=== PATIENT | female | born 1980 | race African-American/Black ===

== ENCOUNTER 2022-12-14 07:45 | Emergency (ER) | payer OTHER ==
--- OUTSIDE RECORDS SUMMARY | 2022-12-14 08:12 | XMS REPORT | Continuity of Care Document ---
:1980 Author Organization [facility] t Address [address] [place] [address] [place] [id number] Care Team Providers Name Role Phone WADEALMA Jimenez Primary Care Physician Unavailable SANDEEP GALLOWAY Attending Clinician Unavailable NIA ALCANTAR Attending Clinician Unavailable Nia Alcantar MD Attending Clinician Galina Dominguez RN Attending Clinician Unavailable Almaz Monahan Attending Clinician Unavailable Peter Monique MD Attending Clinician Rylee Olson Attending Clinician RYLEE MCGEE Attending Clinician Unavailable Doctor Unassigned, Dolliver Attending Clinician Unavailable Laverne Sandeep BYRD Attending Clinician [phone] Ayeni_Ibitoye_Olubu Attending Clinician Unavailable KATLYN GARCIA Attending Clinician Unavailable KATLYN GARCIA Attending Clinician Unavailable Only, Ang Db Test Attending Clinician Unavailable Unknown, Attending Attending Clinician Unavailable KARAN HANEY Attending Clinician Unavailable José Miguel Brock Attending Clinician MALU PRITCHETT Attending Clinician Unavailable MALU PRITCHETT Attending Clinician Unavailable Only, Adc Test Attending Clinician Unavailable Harpreet Rust MD Attending Clinician HARPREET RUST Attending Clinician Unavailable MORGAN Attending Clinician Unavailable JEFRY NOEL Attending Clinician Unavailable Nivia Chan Attending Clinician Lab, Adc Fam Pob I Attending Clinician Unavailable NIVIA MARTINEZ Attending Clinician Unavailable Gloria Chang MD Attending Clinician GLORIA CHANG Attending Clinician Unavailable Gabe Esteves DO Attending Clinician Room, [facility] Uro Procedure Attending Clinician Unavailable Kira Lynch Attending Clinician GRAMMKIRA Attending Clinician Unavailable EbrahiKaran Yan Attending Clinician Pob1, [facility] Attending Clinician Unavailable NIA ALCANTAR Admitting Clinician Unavailable Ayeni_Ibitoye_Olubu Admitting Clinician Unavailable KATLYN GARCIA Admitting Clinician Unavailable RYLEE MCGEE Admitting Clinician Unavailable SANDEEP GALLOWAY Admitting Clinician Unavailable MORGAN Admitting Clinician Unavailable Payers Payer Name Policy Type Policy Number Effective Date Expiration Date S aleyda [facility] [id number] 2016 00:00:00 [facility] [id number] 2018 [facility] 00:00:00 (MEDICAID HMO) Problems Condition Condition Condition Status Onset Resolution Last Treating Co mments Source Name Details Category Date Date Treatment Clinician Date Other Other Disease Active Univers general general 7-28 [place] of counseling [place] and advice and advice 00 Me dical for for [place] contracept contracept sveta sveta management management Morbid Morbid Disease Active Univers obesity obesity 6-26 ity of 00:00: [address] Urinary Urinary Disease Active Univers incontinen incontinen 6-26 it y of ce ce 00:00: [address] Vaginal Vaginal Disease Active 2019- Univers discharge discharge 5-08 ity of 00:00: [address] Encounter Encounter Disease Active Uni vers for for 9 [place]y of contracept [place]pt [place] sveta sveta 00 Medical management management Br anch History of History of Disease Active U nivers depression depression 9- it y of 00:00: [place] 00 Medical Branch History of History of Disease Active U nivers anxiety anxiety 02-09 ity of 00:00: Medical Branch History of History of Disease Active U nivers tubal tubal 10-15 ity of ligation ligation 00:00: [place] 00 Medical Branch Heart Heart Problem Resolve 2022-02-05 Bertram darek murmur murmur d 22:09:23 l (finding) (finding) Herm marylu Resolved Problem 02/05/2022 [facility] Amnesia Amnesia Problem Active 2022-02-05 Me moria (finding) (finding) 22:09:23 l Active Manuel Problem 02/05/2022 [facility] Migraine Migraine Problem Active 2022-02-05 Memoria (disorder) (disorder) 22:09:23 l Active [place] Problem 02/05/2022 [facility] Beriberi Beriberi Problem Active 2022-02-05 Memoria (disorder) (disorder) 22:09:23 l Active Manuel Problem 02/05/2022 [facility] G43.909 - G43.909 - Diagnosis Active 2021-10-16 Memoria MIGRAINE, MIGRAINE, 07:08:00 l UNSP, NOT UNSP, NOT Herm marylu INTRACTABL INTRACTABL Active [facility] Allergies, Adverse Reactions, Alerts Allergy Allergy Status Severity Reaction(s) Onset Inactive Treating Comm ents Source Name Type Date Date Clinician HYDROCOD DRUG Active Hives Univers ONE-ACET 6-18 ity of AMINOPHE 00:00: [place] 00 Medical Branch Hydrocod Propensi Active Hives Univer s one-Acet ty to 618 ity of aminophe adverse 00:00: [place] n reaction 00 Medical s to Branch drug MORPHINE DRUG Active Rash Univers INGREDI 01-15 ity of 00:00: [place] 00 Medical Branch Morphine Propensi Active Rash Univer s ty to 01-15 ity of adverse 00:00: [place] reaction 00 Medical s Branch morphine morphine Active Memori a l Manuel [place] Active Memoria l [place] Social History Social Habit Start Date Stop Date Quantity Comments Source Gender identity [facility] Sexual orientation Univer sity of [facility] Alcohol intake 2022-11-09 2022-11-09 Current University of 00:00:00 00:00:00 non-drinker of [facility] alcohol Branch (finding) Exposure to 2022-09-13 2022-09-23 Not sure University SARS-CoV-2 (event) 00:00:00 15:51:00 [facility] History of Social 2022-07-08 2022-07-08 Univers ity of function 00:00:00 00:00:00 [facility] Tobacco use and 2021-12-10 2021-12-10 Smokeless Universit y of exposure 00:00:00 00:00:[address] tobacco non-[address] [facility] Social History 2021-09-21 2021-09-21 [facility] 14:24:55 14:24:55 Sex Assigned At [birth year] Universit y of 00:00:00 00:00:00 [facility] Smoking Status Start Date Stop Date Source Never smoked tobacco [facility] Medications Ordered Filled Start Stop Current Ordering Indication Dosage Frequency Signature Comments Components Source Medication Medication Date Date Medication? Clinician (SIG) Name Name LORazepam 2022- No Oral, PRN, U nivers (ATIVAN) 12-07 Starting ity of tablet 15:59: 15:59 on [facility] 31 :31 12/07/22 at [place] [id number], Branch Until [facility] 12/07/22 at [facility], Routine, Intra-op LORazepam 2022- No Oral, PRN, U nivers (ATIVAN) 12-07 Starting ity of tablet 15:59: 15:59 on [facility] 31 :31 12/07/22 at [facility] 1059, Branch Until [facility] 12/07/22 at 105, Routine, Intra-op hyaluronate 2022- No [id number] 3mL Univers sodium, 11-02- 4105 ity of stabilized 20:00: 19:11 [place] (DUROLANE) 00 :00 Medical intra-artic Branch ular injection 3 mL hyaluronate 2022- No [id number] 3mL 3 mL, Univers sodium, 11-02- 4105 Intra-luis ity o f stabilized 20:00: 19:11 [place] (DUR[place] 00 :00 ONCE, 1 Medica l intra-artic dose, On Bran ch ular Tue injection 3 11/02/22 at mL 1500, Routine hyaluronate 2022-0 2022- No [id number] 3mL Univers sodium, 11-02 410 ity of stabilized 20:00: 19:11 [place] (DUROLANE) 00 :00 Medical intra-artic Branch ular injection 3 mL hyaluronate 0 2022- No [id number] 3mL 3 mL, Univers sodium, 11-02 410 Intra-luis ity o f stabilized 20:00: 19:11 [place] (DUROLANE[place] 00 :00 ONCE, 1 Medica l intra-artic dose, On Bran ch ular Tue injection 3 11/02/22 at mL 1500, Routine metroNIDAZO 2022-0 Yes [id number] 500mg Take 1 Univers LE 500 mg 5-15 tablet by ity o f tablet 00:00: mouth in [place] [address] the Medical morning Branch and 1 tablet in the evening. metroNIDAZO 2022-0 Yes [id number] 500mg Take 1 Univers LE 500 mg 5-15 tablet by ity o f tablet 00:00: mouth in [place] [address] the Medical morning Branch and 1 tablet in the evening. metroNIDAZO 2022-0 Yes [id number] 500mg Take 1 Univers LE 500 mg 5-15 tablet by ity o f tablet 00:00: mouth in [place] the Medical morning Branch and 1 tablet in the evening. metroNIDAZO 2022-0 Yes [id number] 500mg Take 1 Univers LE 500 mg 5-15 tablet by ity o f tablet 00:00: mouth in [place] [address] the Medical morning Branch and 1 tablet in the evening. metroNIDAZO 3-0 Yes [id number] 500mg Take 1 Univers LE 500 mg 5-15 tablet by ity o f tablet 00:00: mouth in [place] [address] the Medical morning Branch and 1 tablet in the evening. metroNIDAZO 3-0 Yes [id number] 500mg Take 1 Univers LE 500 mg 5-15 tablet by ity o f tablet 00:00: mouth in [place] [address] the Medical morning Branch and 1 tablet in the evening. metroNIDAZO 2023-0 Yes [id number] 500mg Take 1 Univers LE 500 mg 5-15 tablet by ity o f tablet 00:00: mouth in [place] 00 the Medical morning Branch and 1 tablet in the evening. metroNIDAZO 3-0 Yes [id number] 500mg Take 1 Univers LE 500 mg 5-15 tablet by ity o f tablet 00:00: mouth in [place] 00 the Medical morning Branch and 1 tablet in the evening. metroNIDAZO 2022-0 Yes [id number] 500mg Take 1 Univers LE 500 mg 5-15 tablet by ity o f tablet 00:00: mouth in [place] 00 the Medical morning Branch and 1 tablet in the evening. metroNIDAZO 2022-0 Yes [id number] 500mg Take 1 Univers LE 500 mg 5-15 tablet by ity o f tablet 00:00: mouth in [place] 00 the Medical morning Branch and 1 tablet in the evening. metroNIDAZO 2022-0 Yes [id number] 500mg Take 1 Univers LE 500 mg 5-15 tablet by ity o f tablet 00:00: mouth in [place] 00 the Medical morning Branch and 1 tablet in the evening. metroNIDAZO 2022-0 Yes [id number] 500mg Take 1 Univers LE 500 mg 5-15 tablet by ity o f tablet 00:00: mouth in [place] 00 the Medical morning Branch and 1 tablet in the evening. metroNIDAZO 2022-0 Yes [id number] 500mg Take 1 Univers LE 500 mg 5-15 tablet by ity o f tablet 00:00: mouth in [place] 00 the Medical morning Branch and 1 tablet in the evening. metroNIDAZO 3-0 Yes [id number] 500mg Take 1 Univers LE 500 mg 5-15 tablet by ity o f tablet 00:00: mouth in [place] 00 the Medical morning Branch and 1 tablet in the evening. metroNIDAZO 3-0 Yes [id number] 500mg Take 1 Univers LE 500 mg 5-15 tablet by ity o f tablet 00:00: mouth in [place] 00 the Medical morning Branch and 1 tablet in the evening. metroNIDAZO 3-0 Yes [id number] 500mg Take 1 Univers LE 500 mg 5-15 tablet by ity o f tablet 00:00: mouth in [place] 00 the Medical morning Branch and 1 tablet in the evening. metroNIDAZO 3-0 Yes [id number] 500mg Take 1 Univers LE 500 mg 5-15 tablet by ity o f tablet 00:00: mouth in [place] 00 the Medical morning Branch and 1 tablet in the evening. metroNIDAZO 2022-0 Yes [id number] 500mg Take 1 Univers LE 500 mg 5-15 tablet by ity o f tablet 00:00: mouth in [place] 00 the Medical morning Branch and 1 tablet in the evening. metroNIDAZO 2022-0 Yes [id number] 500mg Take 1 Univers LE 500 mg 5-15 tablet by ity o f tablet 00:00: mouth in [place] 00 the Medical morning Branch and 1 tablet in the evening. metroNIDAZO 0 Yes [id number] 500mg Take 1 Univers LE 500 mg 5-15 tablet by ity o f tablet 00:00: mouth in [place] 00 the Medical morning Branch and 1 tablet in the evening. LORazepam 2022- No [id number] 1mg 1 mg, U nivers (ATIVAN) 09-20 05-08 Oral, ity of tablet 1 mg 20:15: 20:06 ONCE, 1 [place] 00 :[place] dose, On Medical 09/20/22 Branch at 1515, Routine DICLOFENAC 2022-0 Yes [id number] TAKE 1 Univers 75 mg EC 5-08 [id number] TABLET BY ity o f tablet 00:00: MOUTH [place] 00 EVERY Medical MORNING Branch AND 1 TABLET BY MOUTH EVERY EVENING DICLOFENAC 2022-0 Yes [id number] TAKE 1 Univers 75 mg EC 5-08 [id number] TABLET BY ity o f tablet 00:00: MOUTH [place] 00 EVERY Medical MORNING Branch AND 1 TABLET BY MOUTH EVERY EVENING DICLOFENAC 2022-0 Yes [id number] TAKE 1 Univers 75 mg EC 5-08 08422 TABLET BY ity o f tablet 00:00: MOUTH [place] 00 EVERY Medical MORNING Branch AND 1 TABLET BY MOUTH EVERY EVENING DICLOFENAC 2022-0 Yes [id number] TAKE 1 Univers 75 mg EC 5-08 [id number] TABLET BY ity o f tablet 00:00: MOUTH [place] 00 EVERY Medical MORNING Branch AND 1 TABLET BY MOUTH EVERY EVENING DICLOFENAC 2022-0 Yes [id number] TAKE 1 Univers 75 mg EC 5-08 [id number] TABLET BY ity o f tablet 00:00: MOUTH [place] 00 EVERY Medical MORNING Branch AND 1 TABLET BY MOUTH EVERY EVENING DICLOFENAC 2023-0 Yes [id number] TAKE 1 Univers 75 mg EC 5-08 [id number] TABLET BY ity o f tablet 00:00: MOUTH [place] 00 EVERY Medical MORNING Branch AND 1 TABLET BY MOUTH EVERY EVENING DICLOFENAC 2022-0 Yes [id number] TAKE 1 Univers 75 mg EC 5-08 [id number] TABLET BY ity o f tablet 00:00: MOUTH [place] 00 EVERY Medical MORNING Branch AND 1 TABLET BY MOUTH EVERY EVENING DICLOFENAC 2022-0 Yes [id number] TAKE 1 Univers 75 mg EC 5-08 [id number] TABLET BY ity o f tablet 00:00: MOUTH [place] 00 EVERY Medical MORNING Branch AND 1 TABLET BY MOUTH EVERY EVENING DICLOFENAC 2022-0 Yes [id number] TAKE 1 Univers 75 mg EC 5-08 23545 TABLET BY ity o f tablet 00:00: MOUTH [place] 00 EVERY Medical MORNING Branch AND 1 TABLET BY MOUTH EVERY EVENING DICLOFENAC 2022-0 Yes [id number] TAKE 1 Univers 75 mg EC 5-08 [id number] TABLET BY ity o f tablet 00:00: MOUTH [place] 00 EVERY Medical MORNING Branch AND 1 TABLET BY MOUTH EVERY EVENING DICLOFENAC 2022-0 Yes [id number] TAKE 1 Univers 75 mg EC 5-08 53696 TABLET BY ity o f tablet 00:00: MOUTH [place] 00 EVERY Medical MORNING Branch AND 1 TABLET BY MOUTH EVERY EVENING DICLOFENAC 2022-0 Yes [id number] TAKE 1 Univers 75 mg EC 5-08 [id number] TABLET BY ity o f tablet 00:00: MOUTH [place] 00 EVERY Medical MORNING Branch AND 1 TABLET BY MOUTH EVERY EVENING DICLOFENAC 3-0 Yes [id number] TAKE 1 Univers 75 mg EC 5-08 40587 TABLET BY ity o f tablet 00:00: MOUTH [place] 00 EVERY Medical MORNING Branch AND 1 TABLET BY MOUTH EVERY EVENING DICLOFENAC 3-0 Yes [id number] TAKE 1 Univers 75 mg EC 5-08 [id number] TABLET BY ity o f tablet 00:00: MOUTH [place] 00 EVERY Medical MORNING Branch AND 1 TABLET BY MOUTH EVERY EVENING DICLOFENAC 3-0 Yes [id number] TAKE 1 Univers 75 mg EC 5-08 [id number] TABLET BY ity o f tablet 00:00: MOUTH [place] 00 EVERY Medical MORNING Branch AND 1 TABLET BY MOUTH EVERY EVENING DICLOFENAC 3-0 Yes [id number] TAKE 1 Univers 75 mg EC 5-08 [id number] TABLET BY ity o f tablet 00:00: MOUTH [place] 00 EVERY Medical MORNING Branch AND 1 TABLET BY MOUTH EVERY EVENING DICLOFENAC 3-0 Yes [id number] TAKE 1 Univers 75 mg EC 5-08 [id number] TABLET BY ity o f tablet 00:00: MOUTH [place] 00 EVERY Medical MORNING Branch AND 1 TABLET BY MOUTH EVERY EVENING DICLOFENAC 2022-0 Yes [id number] TAKE 1 Univers 75 mg EC 5-08 [id number] TABLET BY ity o f tablet 00:00: MOUTH [place] 00 EVERY Medical MORNING Branch AND 1 TABLET BY MOUTH EVERY EVENING DICLOFENAC 2022-0 Yes [id number] TAKE 1 Univers 75 mg EC 5-08 [id number] TABLET BY ity o f tablet 00:00: MOUTH [place] 00 EVERY Medical MORNING Branch AND 1 TABLET BY MOUTH EVERY EVENING DICLOFENAC 2022-0 Yes [id number] TAKE 1 Univers 75 mg EC 5-08 [id number] TABLET BY ity o f tablet 00:00: MOUTH [place] 00 EVERY Medical MORNING Branch AND 1 TABLET BY MOUTH EVERY EVENING DICLOFENAC 2022-0 Yes [id number] TAKE 1 Univers 75 mg EC 5-08 48812 TABLET BY ity o f tablet 00:00: MOUTH [place] 00 EVERY Medical MORNING Branch AND 1 TABLET BY MOUTH EVERY EVENING DICLOFENAC 2022-0 Yes [id number] TAKE 1 Univers 75 mg EC 5-08 13668 TABLET BY ity o f tablet 00:00: MOUTH [place] 00 EVERY Medical MORNING Branch AND 1 TABLET BY MOUTH EVERY EVENING DICLOFENAC 2022-0 Yes [id number] TAKE 1 Univers 75 mg EC 5-08 [id number] TABLET BY ity o f tablet 00:00: MOUTH [place] 00 EVERY Medical MORNING Branch AND 1 TABLET BY MOUTH EVERY EVENING DICLOFENAC 3-0 Yes [id number] TAKE 1 Univers 75 mg EC 5-08 [id number] TABLET BY ity o f tablet 00:00: MOUTH [place] 00 EVERY Medical MORNING Branch AND 1 TABLET BY MOUTH EVERY EVENING DICLOFENAC 3-0 Yes [id number] TAKE 1 Univers 75 mg EC 5-08 [id number] TABLET BY ity o f tablet 00:00: MOUTH [place] 00 EVERY Medical MORNING Branch AND 1 TABLET BY MOUTH EVERY EVENING DICLOFENAC 3-0 Yes [id number] TAKE 1 Univers 75 mg EC 5-08 [id number] TABLET BY ity o f tablet 00:00: MOUTH [place] 00 EVERY Medical MORNING Branch AND 1 TABLET BY MOUTH EVERY EVENING methocarbam 3-0 Yes [id number] 750mg Take 1 Univers oL 750 mg 4-11 tablet by ity o f tablet 00:00: mouth in [place] 00 the Medical morning Branch and 1 tablet in the evening. methocarbam 3-0 Yes [id number] 750mg Take 1 Univers oL 750 mg 4-11 tablet by ity o f tablet 00:00: mouth in [place] 00 the Medical morning Branch and 1 tablet in the evening. methocarbam 3-0 Yes [id number] 750mg Take 1 Univers oL 750 mg 4-11 tablet by ity o f tablet 00:00: mouth in [place] 00 the Medical morning Branch and 1 tablet in the evening. methocarbam 3-0 Yes [id number] 750mg Take 1 Univers oL 750 mg 4-11 tablet by ity o f tablet 00:00: mouth in [place] 00 the Medical morning Branch and 1 tablet in the evening. methocarbam 3-0 Yes [id number] 750mg Take 1 Univers oL 750 mg 4-11 tablet by ity o f tablet 00:00: mouth in [place] 00 the Medical morning Branch and 1 tablet in the evening. methocarbam 3-0 Yes [id number] 750mg Take 1 Univers oL 750 mg 4-11 tablet by ity o f tablet 00:00: mouth in [place] 00 the Medical morning Branch and 1 tablet in the evening. methocarbam 3-0 Yes [id number] 750mg Take 1 Univers oL 750 mg 4-11 tablet by ity o f tablet 00:00: mouth in [place] 00 the Medical morning Branch and 1 tablet in the evening. methocarbam 3-0 Yes [id number] 750mg Take 1 Univers oL 750 mg 4-11 tablet by ity o f tablet 00:00: mouth in [place] 00 the Medical morning Branch and 1 tablet in the evening. methocarbam 3-0 Yes [id number] 750mg Take 1 Univers oL 750 mg 4-11 tablet by ity o f tablet 00:00: mouth in [place] 00 the Medical morning Branch and 1 tablet in the evening. methocarbam 3-0 Yes [id number] 750mg Take 1 Univers oL 750 mg 4-11 tablet by ity o f tablet 00:00: mouth in [place] 00 the Medical morning Branch and 1 tablet in the evening. methocarbam 3-0 Yes [id number] 750mg Take 1 Univers oL 750 mg 4-11 tablet by ity o f tablet 00:00: mouth in [place] 00 the Medical morning Branch and 1 tablet in the evening. methocarbam 3-0 Yes [id number] 750mg Take 1 Univers oL 750 mg 4-11 tablet by ity o f tablet 00:00: mouth in [place] 00 the Medical morning Branch and 1 tablet in the evening. methocarbam 3-0 Yes [id number] 750mg Take 1 Univers oL 750 mg 4-11 tablet by ity o f tablet 00:00: mouth in [place] 00 the Medical morning Branch and 1 tablet in the evening. methocarbam 3-0 Yes [id number] 750mg Take 1 Univers oL 750 mg 4-11 tablet by ity o f tablet 00:00: mouth in [place] 00 the Medical morning Branch and 1 tablet in the evening. methocarbam 3-0 Yes [id number] 750mg Take 1 Univers oL 750 mg 4-11 tablet by ity o f tablet 00:00: mouth in [place] 00 the Medical morning Branch and 1 tablet in the evening. methocarbam 3-0 Yes [id number] 750mg Take 1 Univers oL 750 mg 4-11 tablet by ity o f tablet 00:00: mouth in [place] 00 the Medical morning Branch and 1 tablet in the evening. methocarbam 3-0 Yes [id number] 750mg Take 1 Univers oL 750 mg 4-11 tablet by ity o f tablet 00:00: mouth in [place] 00 the Medical morning Branch and 1 tablet in the evening. methocarbam 3-0 Yes [id number] 750mg Take 1 Univers oL 750 mg 4-11 tablet by ity o f tablet 00:00: mouth in [place] 00 the Medical morning Branch and 1 tablet in the evening. methocarbam 3-0 Yes [id number] 750mg Take 1 Univers oL 750 mg 4-11 tablet by ity o f tablet 00:00: mouth in [place] 00 the Medical morning Branch and 1 tablet in the evening. methocarbam 3-0 Yes [id number] 750mg Take 1 Univers oL 750 mg 4-11 tablet by ity o f tablet 00:00: mouth in [place] 00 the Medical morning Branch and 1 tablet in the evening. methocarbam 2023-0 Yes [id number] 750mg Take 1 Univers oL 750 mg 4-11 tablet by ity o f tablet 00:00: mouth in [place] 00 the Medical morning Branch and 1 tablet in the evening. methocarbam 3-0 Yes [id number] 750mg Take 1 Univers oL 750 mg 4-11 tablet by ity o f tablet 00:00: mouth in [place] 00 the Medical morning Branch and 1 tablet in the evening. methocarbam 3-0 Yes [id number] 750mg Take 1 Univers oL 750 mg 4-11 tablet by ity o f tablet 00:00: mouth in [place] 00 the Medical morning Branch and 1 tablet in the evening. methocarbam 3-0 Yes [id number] 750mg Take 1 Univers oL 750 mg 4-11 tablet by ity o f tablet 00:00: mouth in [place] 00 the Medical morning Branch and 1 tablet in the evening. methocarbam 3-0 Yes [id number] 750mg Take 1 Univers oL 750 mg 4-11 tablet by ity o f tablet 00:00: mouth in [place] 00 the Medical morning Branch and 1 tablet in the evening. methocarbam 3-0 Yes [id number] 750mg Take 1 Univers oL 750 mg 4-11 tablet by ity o f tablet 00:00: mouth in [place] 00 the Medical morning Branch and 1 tablet in the evening. methocarbam 3-0 Yes [id number] 750mg Take 1 Univers oL 750 mg 4-11 tablet by ity o f tablet 00:00: mouth in [place] 00 the Medical morning Branch and 1 tablet in the evening. methocarbam 3-0 Yes [id number] 750mg Take 1 Univers oL 750 mg 4-11 tablet by ity o f tablet 00:00: mouth in [place] 00 the Medical morning Branch and 1 tablet in the evening. methocarbam 3-0 Yes [id number] 750mg Take 1 Univers oL 750 mg 4-11 tablet by ity o f tablet 00:00: mouth in [place] 00 the Medical morning Branch and 1 tablet in the evening. methocarbam 3-0 Yes [id number] 750mg Take 1 Univers oL 750 mg 4-11 tablet by ity o f tablet 00:00: mouth in [place] 00 the Medical morning Branch and 1 tablet in the evening. methocarbam 3-0 Yes [id number] 750mg Take 1 Univers oL 750 mg 4-11 tablet by ity o f tablet 00:00: mouth in [place] 00 the Medical morning Branch and 1 tablet in the evening. methocarbam 3-0 Yes [id number] 750mg Take 1 Univers oL 750 mg 4-11 tablet by ity o f tablet 00:00: mouth in [place] 00 the Medical morning Branch and 1 tablet in the evening. DICLOFENAC 2022-0 Yes [id number] TAKE 1 Univers 75 mg EC 4- 45099 TABLET BY ity o f tablet 00:00: MOUTH [place] 00 EVERY Medical MORNING Branch AND 1 TABLET BY MOUTH EVERY EVENING DICLOFENAC 2022-0 Yes [id number] TAKE 1 Univers 75 mg EC 4-07 [id number] TABLET BY ity o f tablet 00:00: MOUTH [place] 00 EVERY Medical MORNING Branch AND 1 TABLET BY MOUTH EVERY EVENING DICLOFENAC 2022-0 Yes [id number] TAKE 1 Univers 75 mg EC 4- 58205 TABLET BY ity o f tablet 00:00: MOUTH [place] 00 EVERY Medical MORNING Branch AND 1 TABLET BY MOUTH EVERY EVENING DICLOFENAC 2022-0 Yes [id number] TAKE 1 Univers 75 mg EC 4- [id number] TABLET BY ity o f tablet 00:00: MOUTH [place] 00 EVERY Medical MORNING Branch AND 1 TABLET BY MOUTH EVERY EVENING DICLOFENAC 2022-0 Yes [id number] TAKE 1 Univers 75 mg EC 4- 27847 TABLET BY ity o f tablet 00:00: MOUTH [place] 00 EVERY Medical MORNING Branch AND 1 TABLET BY MOUTH EVERY EVENING DICLOFENAC 2022-0 Yes [id number] TAKE 1 Univers 75 mg EC 4-07 [id number] TABLET BY ity o f tablet 00:00: MOUTH [place] 00 EVERY Medical MORNING Branch AND 1 TABLET BY MOUTH EVERY EVENING DICLOFENAC 2022-0 202- No [id number] TAKE 1 Univers 75 mg EC 4-07 05-08 [id number] TABLET BY ity of tablet 00:00: 00:00 MOUTH [place] 00 :00 EVERY Medical MORNING Branch AND 1 TABLET BY MOUTH EVERY EVENING DICLOFENAC 2022-0 2022- No [id number] TAKE 1 Univers 75 mg EC 4-07 05-08 [id number] TABLET BY ity of tablet 00:00: 00:00 MOUTH [place] 00 :00 EVERY Medical MORNING Branch AND 1 TABLET BY MOUTH EVERY EVENING cefdinir 2022-0 2022- No 300mg 300 mg, Univ ers (OMNICEF) 08-01 Oral, ity of capsule 300 17:30: 16:57 ONCE, 1 [place] mg 00 :00 dose, On Medical Sun Branch 08/01/22 at 1230, ANDRES
Re ason for Anti-Infec tive: Documented Infection< br>Documen david Infection Site: Urine
D uration of Therapy: 7 days lidocaine 2022- No 1{patch 1 Patch, Univers (LIDODERM) 08-01 } Topical, ity of 5 % (700 17:15: 05:14 Administer [place] mg/patch) 00 :00 over 12 Medical patch 1 Hours, Branch Patch ONCE, 1 dose, On 08/01/22 at 1215, Routine ketorolac No 30mg 30 mg, Unive rs (TORADOL) 08-01 Intramuscu ity of injection 17:15: 17:01 [place], ONCE, [place] 30 mg 00 :00 1 dose, On Medical Sun Branch 08/01/22 at 1215, Routine methocarbam 2022- No [id number] 750mg Take 1 Univers oL 750 mg 08-01 tablet by ity of tablet 00:00: 04:59 mouth 4 [place] 00 :00 (four) Medical times Branch daily as needed for Other (muscle spasms) for up to 7 days. cefdinir 2022- No [id number] 300mg Take 1 U nivers 300 mg 08-01 capsule by ity of capsule 00:00: 04:59 mouth [place] 00 :00 every 12 Medical (twelve) Branch hours for 7 days. methocarbam 2022- No [id number] 750mg Take 1 [facility] oL 750 mg 08-01 tablet by ity of tablet 00:00: 04:59 mouth 4 [place] 00 :00 (four) Medical times Branch daily as needed for Other (muscle spasms) for up to 7 days. cefdinir 2022- No [id number] 300mg Take 1 [facility] nivers 300 mg 08-01 capsule by ity of capsule 00:00: 04:59 mouth [place] 00 :00 every 12 Medical (twelve) Branch hours for 7 days. DICLOFENAC Yes [id number] TAKE 1 [facility] 75 mg EC 3-03 TABLET BY ity o f tablet 00:00: MOUTH [place] 00 EVERY Medical MORNING Branch AND 1 TABLET BY MOUTH EVERY EVENING DICLOFENAC Yes [id number] TAKE 1 [facility] 75 mg EC 3-07 [id number] TABLET BY ity o f tablet 00:00: MOUTH [place] 00 EVERY Medical MORNING Branch AND 1 TABLET BY MOUTH EVERY EVENING DICLOFENAC 2022-0 Yes [id number] TAKE 1 [facility] 75 mg EC 3- 81053 TABLET BY ity o f tablet 00:00: MOUTH [place] 00 EVERY Medical MORNING Branch AND 1 TABLET BY MOUTH EVERY EVENING DICLOFENAC 2022-0 2023- No [id number] TAKE 1 [facility] 75 mg EC 3-11 16- 15558 TABLET BY ity of tablet 00:00: 00:00 MOUTH [place] 00 :00 EVERY Medical MORNING Branch AND 1 TABLET BY MOUTH EVERY EVENING DICLOFENAC 2022-0 Yes [id number] TAKE 1 [facility] 75 mg EC 2-03 [id number] TABLET BY ity o f tablet 00:00: MOUTH [place] 00 EVERY Medical MORNING Branch AND 1 TABLET BY MOUTH EVERY EVENING DICLOFENAC 2022-0 Yes [id number] TAKE 1 [facility] 75 mg EC 2-03 [id number] TABLET BY ity o f tablet 00:00: MOUTH [place] 00 EVERY Medical MORNING Branch AND 1 TABLET BY MOUTH EVERY EVENING DICLOFENAC 2022-0 Yes [id number] TAKE 1 [facility] 75 mg EC 2-03 [id number] TABLET BY ity o f tablet 00:00: MOUTH [place] 00 EVERY Medical MORNING Branch AND 1 TABLET BY MOUTH EVERY EVENING DICLOFENAC 2022-0 Yes [id number] TAKE 1 [facility] 75 mg EC 2-03 [id number] TABLET BY ity o f tablet 00:00: MOUTH [place] 00 EVERY Medical MORNING Branch AND 1 TABLET BY MOUTH EVERY EVENING DICLOFENAC 2022-0 Yes [id number] TAKE 1 [facility] 75 mg EC 2-03 [id number] TABLET BY ity o f tablet 00:00: MOUTH [place] 00 EVERY Medical MORNING Branch AND 1 TABLET BY MOUTH EVERY EVENING DICLOFENAC 2022-0 Yes [id number] TAKE 1 [facility] 75 mg EC 2-03 [id number] TABLET BY ity o f tablet 00:00: MOUTH [place] 00 EVERY Medical MORNING Branch AND 1 TABLET BY MOUTH EVERY EVENING DICLOFENAC 2022-0 Yes [id number] TAKE 1 [facility] 75 mg EC 2-03 [id number] TABLET BY ity o f tablet 00:00: MOUTH [place] 00 EVERY Medical MORNING Branch AND 1 TABLET BY MOUTH EVERY EVENING DICLOFENAC 3-0 Yes [id number] TAKE 1 [facility] 75 mg EC 2-03 [id number] TABLET BY ity o f tablet 00:00: MOUTH [place] 00 EVERY Medical MORNING Branch AND 1 TABLET BY MOUTH EVERY EVENING DICLOFENAC 0 Yes [id number] TAKE 1 [facility] 75 mg EC 2-03 [id number] TABLET BY ity o f tablet 00:00: MOUTH [place] 00 EVERY Medical MORNING Branch AND 1 TABLET BY MOUTH EVERY EVENING DICLOFENAC 0 2022- No [id number] TAKE 1 [facility] 75 mg EC 2-03 -07 [id number] TABLET BY ity of tablet 00:00: 00:00 MOUTH [place] 00 :00 EVERY Medical MORNING Branch AND 1 TABLET BY MOUTH EVERY EVENING DICLOFENAC 0 Yes [id number] TAKE 1 [facility] 75 mg EC 1-04 [id number] TABLET BY ity o f tablet 00:00: MOUTH [place] 00 EVERY Medical MORNING Branch AND 1 TABLET BY MOUTH EVERY EVENING DICLOFENAC 0 Yes [id number] TAKE 1 [facility] 75 mg EC 1-04 [id number] TABLET BY ity o f tablet 00:00: MOUTH [place] 00 EVERY Medical MORNING Branch AND 1 TABLET BY MOUTH EVERY EVENING DICLOFENAC 0 Yes [id number] TAKE 1 [facility] 75 mg EC 1-04 [id number] TABLET BY ity o f tablet 00:00: MOUTH [place] 00 EVERY Medical MORNING Branch AND 1 TABLET BY MOUTH EVERY EVENING DICLOFENAC 0 Yes [id number] TAKE 1 [facility] 75 mg EC 1-04 [id number] TABLET BY ity o f tablet 00:00: MOUTH [place] 00 EVERY Medical MORNING Branch AND 1 TABLET BY MOUTH EVERY EVENING DICLOFENAC 0 Yes [id number] TAKE 1 [facility] 75 mg EC 1-04 [id number] TABLET BY ity o f tablet 00:00: MOUTH [place] 00 EVERY Medical MORNING Branch AND 1 TABLET BY MOUTH EVERY EVENING DICLOFENAC 0 Yes [id number] TAKE 1 [facility] 75 mg EC 1-04 [id number] TABLET BY ity o f tablet 00:00: MOUTH [place] 00 EVERY Medical MORNING Branch AND 1 TABLET BY MOUTH EVERY EVENING DICLOFENAC 0 Yes [id number] TAKE 1 [facility] 75 mg EC 1-04 [id number] TABLET BY ity o f tablet 00:00: MOUTH [place] 00 EVERY Medical MORNING Branch AND 1 TABLET BY MOUTH EVERY EVENING DICLOFENAC 0 Yes [id number] TAKE 1 [facility] 75 mg EC 1-04 [id number] TABLET BY ity o f tablet 00:00: MOUTH [place] 00 EVERY Medical MORNING Branch AND 1 TABLET BY MOUTH EVERY EVENING DICLOFENAC 0 Yes [id number] TAKE 1 [facility] 75 mg EC 1-04 [id number] TABLET BY ity o f tablet 00:00: MOUTH [place] 00 EVERY Medical MORNING Branch AND 1 TABLET BY MOUTH EVERY EVENING DICLOFENAC Yes [id number] TAKE 1 [facility] 75 mg EC 05-19 [id number] TABLET BY ity o f tablet 00:00: MOUTH [place] 00 EVERY Medical MORNING Branch AND 1 TABLET BY MOUTH EVERY EVENING DICLOFENAC 2022- No [id number] TAKE 1 [facility] 75 mg EC 05-19 [id number] TABLET BY ity of tablet 00:00: 00:00 MOUTH [place] 00 :00 EVERY Medical MORNING Branch AND 1 TABLET BY MOUTH EVERY EVENING diclofenac 2021-05- No [id number] 75mg Take 1 [facility] 75 mg EC 06-22 [id number] tablet by ity of tablet 00:00: 05:59 mouth in [place] 00 :00 the Medical morning Branch and 1 tablet in the evening. Take with meals. Do all this for 30 days. diclofenac 2021-05- No [id number] 75mg Take 1 [facility] 75 mg EC 06-22 [id number] tablet by ity of tablet 00:00: 05:59 mouth in [place] 00 :00 the Medical morning Branch and 1 tablet in the evening. Take with meals. Do all this for 30 days. diclofenac 2021-05- No [id number] 75mg Take 1 [facility] 75 mg EC 06-22 [id number] tablet by ity of tablet 00:00: 05:59 mouth in [place] 00 :00 the Medical morning Branch and 1 tablet in the evening. Take with meals. Do all this for 30 days. diclofenac 2021-05- No [id number] 75mg Take 1 [facility] 75 mg EC 06-22 [id number] tablet by ity of tablet 00:00: 05:59 mouth in [place] 00 :00 the Medical morning Branch and 1 tablet in the evening. Take with meals. Do all this for 30 days. diclofenac 2021-05- No [id number] 75mg Take 1 [facility] 75 mg EC 06-22 [id number] tablet by ity of tablet 00:00: 00:00 mouth in [place] 00 :00 the Medical morning Branch and 1 tablet in the evening. Take with meals. Do all this for 30 days. MELOXICAM 2022-1 Yes [id number] 7.5mg TAKE 1 [facility] 7.5 mg 1-29 [id number] TABLET BY ity of tablet 00:00: MOUTH [place] DAILY Medical Branch MELOXICAM 2021-05 Yes [id number] 7.5mg TAKE 1 [facility] 7.5 mg 1-29 [id number] TABLET BY ity of tablet 00:00: [facility] DAILY Medical Branch MELOXICAM 2021-05 Yes [id number] 7.5mg TAKE 1 [facility] 7.5 mg 1-29 [id number] TABLET BY ity of tablet 00:00: MOUTH DAILY Medical Branch MELOXICAM 2021-05 Yes [id number] 7.5mg TAKE 1 [facility] 7.5 mg 1-29 [id number] TABLET BY ity of tablet 00:00: [facility] DAILY Medical Branch MELOXICAM 2021-05 Yes [id number] 7.5mg TAKE 1 [facility] 7.5 mg 1-29 [id number] TABLET BY ity of tablet 00:00: [facility] DAILY Medical Branch MELOXICAM 2021-05 Yes [id number] 7.5mg TAKE 1 [facility] 7.5 mg 1-29 [id number] TABLET BY ity of tablet 00:00: [facility] DAILY Medical Branch MELOXICAM 2021-05 Yes [id number] 7.5mg TAKE 1 [facility] 7.5 mg 1-29 [id number] TABLET BY ity of tablet 00:00: [facility] DAILY Medical Branch MELOXICAM 2021-05 Yes [id number] 7.5mg TAKE 1 [facility] 7.5 mg 1-29 [id number] TABLET BY ity of tablet 00:00: [facility] DAILY Medical Branch MELOXICAM 2021-05 Yes [id number] 7.5mg TAKE 1 [facility] 7.5 mg 1-29 [id number] TABLET BY ity of tablet 00:00: [facility] DAILY Medical Branch MELOXICAM 2021-05 Yes [id number] 7.5mg TAKE 1 [facility] 7.5 mg 1-29 [id number] TABLET BY ity of tablet 00:00: [facility] DAILY Medical Branch MELOXICAM 2021-05 Yes [id number] 7.5mg TAKE 1 [facility] 7.5 mg 1-29 [id number] TABLET BY ity of tablet 00:00: [facility] DAILY Medical Branch MELOXICAM 2021-05 Yes [id number] 7.5mg TAKE 1 [facility] 7.5 mg 1-29 [id number] TABLET BY ity of tablet 00:00: MOUTH DAILY Medical Branch MELOXICAM 2021-05 Yes [id number] 7.5mg TAKE 1 [facility] 7.5 mg 1-29 [id number] TABLET BY ity of tablet 00:00: MOUTH DAILY Medical Branch MELOXICAM 2021-05 Yes [id number] 7.5mg TAKE 1 [facility] 7.5 mg 1-29 [id number] TABLET BY ity of tablet 00:00: MOUTH DAILY Medical Branch MELOXICAM 2021-05 Yes [id number] 7.5mg TAKE 1 [facility] 7.5 mg 1-29 [id number] TABLET BY ity of tablet 00:00: MOUTH DAILY Medical Branch MELOXICAM 2021-05 Yes [id number] 7.5mg TAKE 1 [facility] 7.5 mg 1-29 [id number] TABLET BY ity of tablet 00:00: MOUTH DAILY Medical Branch MELOXICAM 2021-05 Yes [id number] 7.5mg TAKE 1 [facility] 7.5 mg 1-29 [id number] TABLET BY ity of tablet 00:00: MOUTH DAILY Medical Branch MELOXICAM 2021-05 Yes [id number] 7.5mg TAKE 1 [facility] 7.5 mg 1-29 [id number] TABLET BY ity of tablet 00:00: MOUTH DAILY Medical Branch MELOXICAM 2021-05 Yes [id number] 7.5mg TAKE 1 [facility] 7.5 mg 1-29 [id number] TABLET BY ity of tablet 00:00: MOUTH DAILY Medical Branch MELOXICAM 2021-05 Yes [id number] 7.5mg TAKE 1 [facility] 7.5 mg 1-29 [id number] TABLET BY ity of tablet 00:00: MOUTH DAILY Medical Branch MELOXICAM 2021-05 Yes [id number] 7.5mg TAKE 1 [facility] 7.5 mg 1-29 [id number] TABLET BY ity of tablet 00:00: MOUTH DAILY Medical Branch MELOXICAM 2021-05 Yes [id number] 7.5mg TAKE 1 [facility] 7.5 mg 1-29 [id number] TABLET BY ity of tablet 00:00: MOUTH DAILY Medical Branch MELOXICAM 2021-05 Yes [id number] 7.5mg TAKE 1 [facility] 7.5 mg 1-29 [id number] TABLET BY ity of tablet 00:00: MOUTH DAILY Medical Branch MELOXICAM 2021-05 Yes [id number] 7.5mg TAKE 1 [facility] 7.5 mg 1-29 [id number] TABLET BY ity of tablet 00:00: [facility] DAILY Medical Branch MELOXICAM 2021-05 Yes [id number] 7.5mg TAKE 1 [facility] 7.5 mg 1-29 [id number] TABLET BY ity of tablet 00:00: [facility] DAILY Medical Branch MELOXICAM 2021-05 Yes [id number] 7.5mg TAKE 1 [facility] 7.5 mg 1-29 [id number] TABLET BY ity of tablet 00:00: [facility] DAILY Medical Branch MELOXICAM 2021-05 Yes [id number] 7.5mg TAKE 1 [facility] 7.5 mg 1-29 [id number] TABLET BY ity of tablet 00:00: [facility] DAILY Medical Branch MELOXICAM 2021-05 Yes [id number] 7.5mg TAKE 1 [facility] 7.5 mg 1-29 [id number] TABLET BY ity of tablet 00:00: [facility] DAILY Medical Branch MELOXICAM 2021-05 Yes [id number] 7.5mg TAKE 1 [facility] 7.5 mg 1-29 [id number] TABLET BY ity of tablet 00:00: [facility] DAILY Medical Branch MELOXICAM 2021-05 Yes [id number] 7.5mg TAKE 1 [facility] 7.5 mg 1-29 [id number] TABLET BY ity of tablet 00:00: [facility] DAILY Medical Branch MELOXICAM 2021-05 Yes [id number] 7.5mg TAKE 1 [facility] 7.5 mg 1-29 [id number] TABLET BY ity of tablet 00:00: [facility] DAILY Medical Branch MELOXICAM 2021-05 Yes [id number] 7.5mg TAKE 1 [facility] 7.5 mg 1-29 [id number] TABLET BY ity of tablet 00:00: [facility] DAILY Medical Branch MELOXICAM 2021-05 Yes [id number] 7.5mg TAKE 1 [facility] 7.5 mg 1-29 [id number] TABLET BY ity of tablet 00:00: [facility] DAILY Medical Branch MELOXICAM 2021-05 Yes [id number] 7.5mg TAKE 1 [facility] 7.5 mg 1-29 [id number] TABLET BY ity of tablet 00:00: [facility] DAILY Medical Branch MELOXICAM 2021-05 Yes [id number] 7.5mg TAKE 1 [facility] 7.5 mg 1-29 [id number] TABLET BY ity of tablet 00:00: MOUTH DAILY Medical Branch MELOXICAM 2021-05 Yes [id number] 7.5mg TAKE 1 [facility] 7.5 mg 1-29 [id number] TABLET BY ity of tablet 00:00: MOUTH DAILY Medical Branch MELOXICAM 2021-05 Yes [id number] 7.5mg TAKE 1 [facility] 7.5 mg 1-29 [id number] TABLET BY ity of tablet 00:00: MOUTH DAILY Medical Branch MELOXICAM 2021-05 Yes [id number] 7.5mg TAKE 1 [facility] 7.5 mg 1-29 [id number] TABLET BY ity of tablet 00:00: [facility] DAILY Medical Branch MELOXICAM 2021-05 Yes [id number] 7.5mg TAKE 1 [facility] 7.5 mg 1-29 [id number] TABLET BY ity of tablet 00:00: [facility] DAILY Medical Branch MELOXICAM 2021-05 Yes [id number] 7.5mg TAKE 1 [facility] 7.5 mg 1-29 [id number] TABLET BY ity of tablet 00:00: [facility] DAILY Medical Branch MELOXICAM 2021-05 Yes [id number] 7.5mg TAKE 1 [facility] 7.5 mg 1-29 [id number] TABLET BY ity of tablet 00:00: [facility] DAILY Medical Branch MELOXICAM 2021-05 Yes [id number] 7.5mg TAKE 1 [facility] 7.5 mg 1-29 [id number] TABLET BY ity of tablet 00:00: [facility] DAILY Medical Branch MELOXICAM 2021-05 Yes [id number] 7.5mg TAKE 1 [facility] 7.5 mg 1-29 [id number] TABLET BY ity of tablet 00:00: [facility] DAILY Medical Branch MELOXICAM 2021-05 Yes [id number] 7.5mg TAKE 1 [facility] 7.5 mg 1-29 [id number] TABLET BY ity of tablet 00:00: [facility] DAILY Medical Branch MELOXICAM 2021-05 Yes [id number] 7.5mg TAKE 1 [facility] 7.5 mg 1-29 [id number] TABLET BY ity of tablet 00:00: [facility] DAILY Medical Branch MELOXICAM 2021-05 Yes [id number] 7.5mg TAKE 1 [facility] 7.5 mg 1-29 [id number] TABLET BY ity of tablet 00:00: MOUTH [place] DAILY Medical Branch MELOXICAM 2021-05 Yes [id number] 7.5mg TAKE 1 [facility] 7.5 mg 1-29 [id number] TABLET BY ity of tablet 00:00: MOUTH DAILY Medical Branch MELOXICAM 2021-05 Yes [id number] 7.5mg TAKE 1 [facility] 7.5 mg 1-29 [id number] TABLET BY ity of tablet 00:00: [facility] DAILY Medical Branch MELOXICAM 2021-05 Yes [id number] 7.5mg TAKE 1 [facility] 7.5 mg 1-29 [id number] TABLET BY ity of tablet 00:00: MOUTH [place] DAILY Medical Branch MELOXICAM 2021-05 Yes [id number] 7.5mg TAKE 1 [facility] 7.5 mg 1-29 [id number] TABLET BY ity of tablet 00:00: [facility] DAILY Medical Branch MELOXICAM 2021-05 Yes [id number] 7.5mg TAKE 1 [facility] 7.5 mg 1-29 [id number] TABLET BY ity of tablet 00:00: [facility] DAILY Medical Branch MELOXICAM 2021-05 Yes [id number] 7.5mg TAKE 1 [facility] 7.5 mg 1-29 [id number] TABLET BY ity of tablet 00:00: [facility] DAILY Medical Branch MELOXICAM 2021-05 Yes [id number] 7.5mg TAKE 1 [facility] 7.5 mg 1-29 [id number] TABLET BY ity of tablet 00:00: [facility] DAILY Medical Branch MELOXICAM 2021-05 Yes [id number] 7.5mg TAKE 1 [facility] 7.5 mg 1-29 [id number] TABLET BY ity of tablet 00:00: [facility] DAILY Medical Branch MELOXICAM 2021-05 Yes [id number] 7.5mg TAKE 1 [facility] 7.5 mg 1-29 [id number] TABLET BY ity of tablet 00:00: [facility] DAILY Medical Branch MELOXICAM 2021-05 Yes [id number] 7.5mg TAKE 1 [facility] 7.5 mg 1-29 [id number] TABLET BY ity of tablet 00:00: [facility] DAILY Medical Branch MELOXICAM 2021-05 Yes [id number] 7.5mg TAKE 1 [facility] 7.5 mg 1-29 [id number] TABLET BY ity of tablet 00:00: [facility] DAILY Medical Branch MELOXICAM 2021-05 Yes [id number] 7.5mg TAKE 1 [facility] 7.5 mg 1-29 [id number] TABLET BY ity of tablet 00:00: MOUTH DAILY Medical Branch MELOXICAM 2021-05 Yes [id number] 7.5mg TAKE 1 [facility] 7.5 mg 1-29 [id number] TABLET BY ity of tablet 00:00: MOUTH DAILY Medical Branch MELOXICAM 2021-05 Yes [id number] 7.5mg TAKE 1 [facility] 7.5 mg 1-29 [id number] TABLET BY ity of tablet 00:00: MOUTH DAILY Medical Branch MELOXICAM 2021-05 Yes [id number] 7.5mg TAKE 1 [facility] 7.5 mg 1-29 [id number] TABLET BY ity of tablet 00:00: MOUTH DAILY Medical Branch MELOXICAM 2021-05 Yes [id number] 7.5mg TAKE 1 [facility] 7.5 mg 1- [id number] TABLET BY ity of tablet 00:00: MOUTH DAILY Medical Branch MELOXICAM 2021-05 Yes [id number] 7.5mg TAKE 1 [facility] 7.5 mg 1- [id number] TABLET BY ity of tablet 00:00: MOUTH DAILY Medical Branch triamcinolo 2021- No [id number] 40mg Univers ne 12-31 [id number] ity of acetonide 23:00: 21:49 [place] (KENALOG) 00 :00 Medical injection Branch 40 mg triamcinolo 2021- No [id number] 40mg 40 mg, Univers ne 12-31 [id number] Intramuscu ity of acetonide 23:00: 21:49 [place], ONCE, [place] (KENALOG) 00 :00 1 dose, On Medi niels injection [place] Branch 40 mg 12/31/21 at 1800, Routine MELOXICAM Yes [id number] 7.5mg TAKE 1 [facility] 7.5 mg 7-27 [id number] TABLET BY ity of tablet 00:00: MOUTH DAILY Medical Branch MELOXICAM Yes [id number] 7.5mg TAKE 1 [facility] 7.5 mg 7-27 [id number] TABLET BY ity of tablet 00:00: MOUTH DAILY Medical Branch MELOXICAM 2021- No [id number] 7.5mg TAKE 1 [facility] 7.5 mg 7-27 04-13 [id number] TABLET BY ity o f tablet 00:00: 00:00 MOUTH [place] 00 :00 DAILY [facility] Branch meloxicam Yes TAKE 1 Memori a 7.5 mg oral 6-21 TABLET BY l tablet 16:02: MOUTH [place] DAILY meloxicam Yes TAKE 1 [facility] a 7.5 mg oral 6-21 TABLET BY l tablet 16:02: MOUTH [place] 00 DAILY meloxicam Yes TAKE 1 [facility] a 7.5 mg oral 6-21 TABLET BY l tablet 16:02: MOUTH [place] 00 DAILY meloxicam Yes TAKE 1 [facility] a 7.5 mg oral 6-21 TABLET BY l tablet 16:02: MOUTH [place] 00 DAILY meloxicam Yes TAKE 1 [facility] a 7.5 mg oral 6-21 TABLET BY l tablet 16:02: MOUTH [place] 00 DAILY meloxicam Yes TAKE 1 [facility] a 7.5 mg oral 6-21 TABLET BY l tablet 16:02: MOUTH [place] 00 DAILY meloxicam Yes TAKE 1 [facility] a 7.5 mg oral 6-21 TABLET BY l tablet 16:02: MOUTH [place] 00 DAILY meloxicam Yes TAKE 1 [facility] a 7.5 mg oral 6-21 TABLET BY l tablet 16:02: MOUTH [place] 00 DAILY meloxicam Yes TAKE 1 [facility] a 7.5 mg oral 6-21 TABLET BY l tablet 16:02: MOUTH [place] 00 DAILY meloxicam Yes TAKE 1 [facility] a 7.5 mg oral 6-21 TABLET BY l tablet 16:02: MOUTH [place] DAILY meloxicam Yes TAKE 1 [facility] a 7.5 mg oral 6-21 TABLET BY l tablet 16:02: MOUTH [place] 00 DAILY meloxicam Yes TAKE 1 [facility] a 7.5 mg oral 6-21 TABLET BY l tablet 16:02: MOUTH [place] DAILY meloxicam Yes TAKE 1 [facility] a 7.5 mg oral 6-21 TABLET BY l tablet 16:02: MOUTH [place] DAILY meloxicam Yes TAKE 1 [facility] a 7.5 mg oral 6-21 TABLET BY l tablet 16:02: MOUTH DAILY Metoprolol 2021-0 Yes 0 [facility] Tartrate 25 5-09 Refill(s) l mg oral 14:30: diazepam 5 2021-0 Yes 0 [facility] mg oral 5-09 Refill(s) l tablet 14:30: tramadol 50 2021-0 Yes 0 [facility] a mg oral 5-09 Refill(s) l tablet 14:30: Metoprolol 2021-0 Yes 0 [facility] Tartrate 25 5-09 Refill(s) l mg oral 14:30: diazepam 5 2021-0 Yes 0 [facility] mg oral 5-09 Refill(s) l tablet 14:30: tramadol 50 2021-0 Yes 0 [facility] a mg oral 5-09 Refill(s) l tablet 14:30: Metoprolol 2021-0 Yes 0 [facility] Tartrate 25 5-09 Refill(s) l mg oral 14:30: Metoprolol 2021-0 Yes 0 [facility] Tartrate 25 5-09 Refill(s) l mg oral 14:30: diazepam 5 2021-0 Yes 0 [facility] mg oral 5-09 Refill(s) l tablet 14:30: tramadol 50 2021-0 Yes 0 [facility] a mg oral 5-09 Refill(s) l tablet 14:30: diazepam 5 2021-0 Yes 0 [facility] mg oral 5-09 Refill(s) l tablet 14:30: tramadol 50 2021-0 Yes 0 [facility] a mg oral 5-09 Refill(s) l tablet 14:30: Metoprolol 2021-0 Yes 0 [facility] Tartrate 25 5-09 Refill(s) l mg oral 14:30: tablet diazepam 5 2021-0 Yes 0 [facility] mg oral 5-09 Refill(s) l tablet 14:30: tramadol 50 2021-0 Yes 0 [facility] a mg oral 5-09 Refill(s) l tablet 14:30: Metoprolol 2021-0 Yes 0 [facility] Tartrate 25 5-09 Refill(s) l mg oral 14:30: tablet diazepam 5 2021-0 Yes 0 [facility] mg oral 5-09 Refill(s) l tablet 14:30: tramadol 50 2021-0 Yes 0 [facility] a mg oral 5-09 Refill(s) l tablet 14:30: Metoprolol 2-0 Yes 0 [facility] Tartrate 25 5-09 Refill(s) l mg oral 14:30: tablet diazepam 5 2021-0 Yes 0 [facility] mg oral 5-09 Refill(s) l tablet 14:30: tramadol 50 2021-0 Yes 0 [facility] a mg oral 5-09 Refill(s) l tablet 14:30: Metoprolol 2021-0 Yes 0 [facility] Tartrate 25 5-09 Refill(s) l mg oral 14:30: tablet diazepam 5 2021-0 Yes 0 [facility] mg oral 5-09 Refill(s) l tablet 14:30: tramadol 50 2021-0 Yes 0 [facility] a mg oral 5-09 Refill(s) l tablet 14:30: Metoprolol 2021-0 Yes 0 [facility] Tartrate 25 5-09 Refill(s) l mg oral 14:30: tablet diazepam 5 2021-0 Yes 0 [facility] mg oral 5-09 Refill(s) l tablet 14:30: tramadol 50 2021-0 Yes 0 [facility] a mg oral 5-09 Refill(s) l tablet 14:30: Metoprolol 2-0 Yes 0 [facility] Tartrate 25 5-09 Refill(s) l mg oral 14:30: tablet diazepam 5 2021-0 Yes 0 [facility] mg oral 5-09 Refill(s) l tablet 14:30: tramadol 50 2-0 Yes 0 [facility] a mg oral 5-09 Refill(s) l tablet 14:30: Metoprolol 2-0 Yes 0 [facility] Tartrate 25 5-09 Refill(s) l mg oral 14:30: tablet diazepam 5 2021-0 Yes 0 [facility] mg oral 5-09 Refill(s) l tablet 14:30: tramadol 50 2-0 Yes 0 [facility] a mg oral 5-09 Refill(s) l tablet 14:30: Metoprolol 2-0 Yes 0 [facility] Tartrate 25 5-09 Refill(s) l mg oral 14:30: [place] tablet diazepam 5 2021-0 Yes 0 [facility] mg oral 5-09 Refill(s) l tablet 14:30: tramadol 50 2-0 Yes 0 [facility] a mg oral 5-09 Refill(s) l tablet 14:30: Metoprolol 2-0 Yes 0 [facility] Tartrate 25 5-09 Refill(s) l mg oral 14:30: tablet diazepam 5 2021-0 Yes 0 [facility] mg oral 5-09 Refill(s) l tablet 14:30: tramadol 50 2021-0 Yes 0 [facility] a mg oral 5-09 Refill(s) l tablet 14:30: Metoprolol 2-0 Yes 0 [facility] Tartrate 25 5-09 Refill(s) l mg oral 14:30: tablet diazepam 5 2021-0 Yes 0 [facility] mg oral 5-09 Refill(s) l tablet 14:30: tramadol 50 2-0 Yes 0 [facility] a mg oral 5-09 Refill(s) l tablet 14:30: methylPREDN 1-0 Yes FOLLOW Univ ers ISolone 4 6-22 PACKAGE ity of mg tablets 00:00: Medical Branch methylPREDN 2021-0 Yes FOLLOW Univ ers ISolone 4 6-22 PACKAGE ity of mg tablets 00:00: Medical Branch methylPREDN 2021-0 Yes FOLLOW Univ ers ISolone 4 6-22 PACKAGE ity of mg tablets 00:00: Medical Branch methylPREDN 2021-0 Yes FOLLOW Univ ers ISolone 4 6-22 PACKAGE ity of mg tablets 00:00: Medical Branch methylPREDN 2021-0 Yes FOLLOW Univ ers ISolone 4 6-22 PACKAGE ity of mg tablets 00:00: Medical Branch methylPREDN 2021-0 Yes FOLLOW Univ ers ISolone 4 6-22 PACKAGE ity of mg tablets 00:00: [place]RE[place] [facility] methylPREDN 2021-0 Yes FOLLOW Univ ers ISolone 4 6-22 PACKAGE ity of mg tablets 00:00: DI[place] [facility] methylPREDN 2021-0 Yes FOLLOW Univ ers ISolone 4 6-22 PACKAGE ity of mg tablets 00:00: DIRECTIONS [place] Medical Branch methylPREDN 2021-0 Yes FOLLOW Univ ers ISolone 4 6-22 PACKAGE ity of mg tablets 00:00: DIRECTIONS ex Medical Branch methylPREDN 2021-0 Yes FOLLOW Univ ers ISolone 4 6-22 PACKAGE ity of mg tablets 00:00: DIRECTIONS ex Medical Branch methylPREDN 2021-0 Yes FOLLOW Univ ers ISolone 4 6-22 PACKAGE ity of mg tablets 00:00: DIRECTIONS ex Medical Branch methylPREDN 2021-0 Yes FOLLOW Univ ers ISolone 4 6-22 PACKAGE ity of mg tablets 00:00: DIRECTIONS ex Medical Branch methylPREDN 2021-0 Yes FOLLOW Univ ers ISolone 4 6-22 PACKAGE ity of mg tablets 00:00: DIRECTIONS ex Medical Branch methylPREDN 2021-0 Yes FOLLOW Univ ers ISolone 4 6-22 PACKAGE ity of mg tablets 00:00: DIRECTIONS ex Medical Branch methylPREDN 2021-0 Yes FOLLOW Univ ers ISolone 4 6-22 PACKAGE ity of mg tablets 00:00: DIRECTIONS ex Medical Branch methylPREDN 2021-0 Yes FOLLOW Univ ers ISolone 4 6-22 PACKAGE ity of mg tablets 00:00: DIRECTIONS ex Medical Branch methylPREDN 2021-0 Yes FOLLOW Univ ers ISolone 4 6-22 PACKAGE ity of mg tablets 00:00: DIRECTIONS ex Medical Branch methylPREDN 2021-0 Yes FOLLOW Univ ers ISolone 4 6-22 PACKAGE ity of mg tablets 00:00: DIRECTIONS [place] [facility] Branch methylPREDN 2021-0 Yes FOLLOW Univ ers ISolone 4 6-22 PACKAGE ity of mg tablets 00:00: DIRECTIONS [place] [facility] methylPREDN 2021-0 Yes FOLLOW Univ ers ISolone 4 6-22 PACKAGE ity of mg tablets 00:00: DIRECTIONS [place] [facility] methylPREDN 2021-0 Yes FOLLOW [facility] ISolone 4 6-22 PACKAGE [facility] mg tablets 00:00: DIRECTIONS [facility] methylPREDN 2021-0 Yes FOLLOW [facility] ISolone 4 6-22 PACKAGE [facility] mg tablets 00:00: DIRECTIONS [facility] methylPREDN 2021-0 Yes FOLLOW [facility] ISolone 4 6-22 PACKAGE [facility] mg tablets 00:00: DIRECTIONS [facility] methylPREDN 2021-0 Yes FOLLOW [facility] ISolone 4 6-22 PACKAGE [facility] mg tablets 00:00: DIRECTIONS [facility] methylPREDN 2021-0 Yes FOLLOW [facility] ISolone 4 6-22 PACKAGE [facility] mg tablets 00:00: DIRECTIONS [facility] methylPREDN 2021-0 Yes FOLLOW [facility] ISolone 4 6-22 PACKAGE [facility] mg tablets 00:00: DIRECTIONS [facility] methylPREDN 2021-0 Yes FOLLOW [facility] ISolone 4 6-22 PACKAGE [facility] of mg tablets 00:00: DIRECTIONS [facility] methylPREDN 2021-0 Yes FOLLOW [facility] ISolone 4 6-22 PACKAGE it[facility] of mg tablets 00:00: DIRECTIONS ex Medical Branch methylPREDN 2021-0 Yes FOLLOW Univ ers ISolone 4 6-22 PACKAGE ity of mg tablets 00:00: DIRECTIONS [facility] methylPREDN 2021-0 Yes FOLLOW [facility] ers ISolone 4 6-22 PACKAGE ity of mg tablets 00:00: DIRECTIONS ex Medical Branch methylPREDN 2021-0 Yes FOLLOW Univ ers ISolone 4 6-22 PACKAGE ity of mg tablets 00:00: DIRECTIONS ex Medical Branch methylPREDN 2021-0 Yes FOLLOW Univ ers ISolone 4 6-22 PACKAGE ity of mg tablets 00:00: DIRECTIONS ex Medical [facility] methylPREDN 2021-0 Yes FOLLOW Univ ers ISolone 4 6-22 PACKAGE ity of mg tablets 00:00: DIRECTIONS ex [facility] methylPREDN 2021-0 Yes FOLLOW Univ ers ISolone 4 6-22 PACKAGE ity of mg tablets 00:00: DIRECTIONS ex [facility] methylPREDN 2021-0 Yes FOLLOW Univ ers ISolone 4 6-22 PACKAGE ity of mg tablets 00:00: DIRECTIONS T ex Medical Branch methylPREDN 2021-0 Yes FOLLOW Univ ers ISolone 4 6-22 PACKAGE ity of mg tablets 00:00: DIRECTIONS ex [facility] methylPREDN 2021-0 Yes FOLLOW [facility] ers ISolone 4 6-22 PACKAGE ity of mg tablets 00:00: DIRECTIONS ex [facility] methylPREDN 2021-0 Yes FOLLOW [facility] ers ISolone 4 6-22 PACKAGE ity of mg tablets 00:00: DIRECTIONS ex [facility] methylPREDN 2021-0 Yes FOLLOW [facility] ers ISolone 4 6-22 PACKAGE ity of mg tablets 00:00: DIRECTIONS [facility] methylPREDN 2021-0 Yes FOLLOW [facility] ers ISolone 4 6-22 PACKAGE ity of mg tablets 00:00: DIRECTIONS [facility] methylPREDN 2021-0 Yes FOLLOW [facility] ers ISolone 4 6-22 PACKAGE ity of mg tablets 00:00: DIRECTIONS [facility] methylPREDN 2021-0 Yes FOLLOW [facility] ers ISolone 4 6-22 PACKAGE ity of mg tablets 00:00: DIRECTIONS [facility] methylPREDN 2021-0 Yes FOLLOW [facility] ers ISolone 4 6-22 PACKAGE ity of mg tablets 00:00: DIRECTIONS [facility] methylPREDN 2021-0 Yes FOLLOW Univ ers ISolone 4 6-22 PACKAGE ity of mg tablets 00:00: DIRECTIONS [facility] methylPREDN 2021-0 Yes FOLLOW [facility] ers ISolone 4 6-22 PACKAGE ity of mg tablets 00:00: DIRECTIONS Medical [facility] methylPREDN 2021-0 Yes FOLLOW [facility] ers ISolone 4 6-22 PACKAGE ity of mg tablets 00:00: DIRECTIONS [facility] methylPREDN 2021-0 Yes FOLLOW [facility] ers ISolone 4 6-22 PACKAGE ity of mg tablets 00:00: DIRECTIONS [facility] methylPREDN 2021-0 Yes FOLLOW [facility] ers ISolone 4 6-22 PACKAGE ity of mg tablets 00:00: DIRECTIONS ex Medical Branch methylPREDN 2021-0 Yes FOLLOW [facility] ers ISolone 4 6-22 PACKAGE ity of mg tablets 00:00: DIRECTIONS ex [facility] methylPREDN 2021-0 Yes FOLLOW [facility] ers ISolone 4 6-22 PACKAGE ity of mg tablets 00:00: DIRECTIONS ex [facility] Branch methylPREDN 2021-0 Yes FOLLOW [facility] ers ISolone 4 6-22 PACKAGE ity of mg tablets 00:00: DIRECTIONS ex [facility] methylPREDN 2021-0 Yes FOLLOW [facility] ers ISolone 4 6-22 PACKAGE ity of mg tablets 00:00: DIRECTIONS ex Medical Branch methylPREDN 2021-0 Yes FOLLOW [facility] ers ISolone 4 6-22 PACKAGE ity of mg tablets 00:00: DIRECTIONS ex [facility] Branch methylPREDN 2021-0 Yes FOLLOW [facility] ers ISolone 4 6-22 PACKAGE ity of mg tablets 00:00: DIRECTIONS ex Medical Branch methylPREDN 2021-0 Yes FOLLOW [facility] ers ISolone 4 6-22 PACKAGE ity of mg tablets 00:00: DIRECTIONS ex Medical Branch methylPREDN 2021-0 Yes FOLLOW [facility] ers ISolone 4 6-22 PACKAGE ity of mg tablets 00:00: DIRECTIONS ex Medical Branch methylPREDN 2021-0 Yes FOLLOW [facility] ers ISolone 4 6-22 PACKAGE ity of mg tablets 00:00: DIRECTIONS ex Medical Branch methylPREDN 2021-0 Yes FOLLOW [facility] ers ISolone 4 6-22 PACKAGE ity of mg tablets 00:00: DIRECTIONS Medical Branch methylPREDN 2021-0 Yes FOLLOW [facility] ers ISolone 4 6-22 PACKAGE ity of mg tablets 00:00: DIRECTIONS ex Medical Branch methylPREDN 2021-0 Yes FOLLOW [facility] ers ISolone 4 6-22 PACKAGE ity of mg tablets 00:00: DIRECTIONS ex Medical Branch methylPREDN 2021-0 Yes FOLLOW [facility] ers ISolone 4 6-22 PACKAGE ity of mg tablets 00:00: DIRECTIONS ex Medical Branch methylPREDN 2021-0 Yes FOLLOW [facility] ers ISolone 4 6-22 PACKAGE ity of mg tablets 00:00: DIRECTIONS ex Medical Branch methylPREDN 2021-0 Yes FOLLOW [facility] ers ISolone 4 6-22 PACKAGE ity of mg tablets 00:00: DIRECTIONS ex Medical Branch methylPREDN 2021-0 Yes FOLLOW [facility] ers ISolone 4 6-22 PACKAGE ity of mg tablets 00:00: DIRECTIONS ex Medical Branch methylPREDN 2021-0 Yes FOLLOW [facility] ers ISolone 4 622 PACKAGE ity of mg tablets 00:00: DIRECTIONS [place] [facility] metoprolol Yes metoprolol U nivers tartrate 25 6-07 tartrate ity of mg tablet 00:00: 25 mg tablet Medical TAKE 1 Branch TABLET BY MOUTH TWICE DAILY metoprolol Yes metoprolol U nivers tartrate 25 6-07 tartrate ity of mg tablet 00:00: 25 mg tablet Medical TAKE 1 Branch TABLET BY MOUTH TWICE DAILY metoprolol Yes metoprolol U nivers tartrate 25 6-07 tartrate ity of mg tablet 00:00: 25 mg tablet Medical TAKE 1 Branch TABLET BY MOUTH TWICE DAILY metoprolol Yes metoprolol U nivers tartrate 25 6-07 tartrate ity of mg tablet 00:00: 25 mg tablet Medical TAKE 1 Branch TABLET BY MOUTH TWICE DAILY metoprolol Yes metoprolol U nivers tartrate 25 6-07 tartrate ity of mg tablet 00:00: 25 mg tablet Medical TAKE 1 Branch TABLET BY MOUTH TWICE DAILY metoprolol Yes metoprolol U nivers tartrate 25 6-07 tartrate ity of mg tablet 00:00: 25 mg tablet Medical TAKE 1 Branch TABLET BY MOUTH TWICE DAILY metoprolol Yes metoprolol U nivers tartrate 25 6-07 tartrate ity of mg tablet 00:00: 25 mg tablet Medical TAKE 1 Branch TABLET BY MOUTH TWICE DAILY metoprolol Yes metoprolol U nivers tartrate 25 6-07 tartrate ity of mg tablet 00:00: 25 mg tablet Medical TAKE 1 Branch TABLET BY MOUTH TWICE DAILY metoprolol Yes metoprolol U nivers tartrate 25 6-07 tartrate ity of mg tablet 00:00: 25 mg tablet Medical TAKE 1 Branch TABLET BY MOUTH TWICE DAILY metoprolol Yes metoprolol U nivers tartrate 25 6-07 tartrate ity of mg tablet 00:00: 25 mg tablet Medical TAKE 1 Branch TABLET BY MOUTH TWICE DAILY metoprolol Yes metoprolol U nivers tartrate 25 6-07 tartrate ity of mg tablet 00:00: 25 mg tablet Medical TAKE 1 Branch TABLET BY MOUTH TWICE DAILY metoprolol Yes metoprolol U nivers tartrate 25 6-07 tartrate ity of mg tablet 00:00: 25 mg tablet Medical TAKE 1 Branch TABLET BY MOUTH TWICE DAILY metoprolol Yes metoprolol U nivers tartrate 25 6-07 tartrate ity of mg tablet 00:00: 25 mg tablet Medical TAKE 1 Branch TABLET BY MOUTH TWICE DAILY metoprolol Yes metoprolol U nivers tartrate 25 6-07 tartrate ity of mg tablet 00:00: 25 mg tablet Medical TAKE 1 Branch TABLET BY MOUTH TWICE DAILY metoprolol Yes metoprolol U nivers tartrate 25 6-07 tartrate ity of mg tablet 00:00: 25 mg tablet Medical TAKE 1 Branch TABLET BY MOUTH TWICE DAILY metoprolol Yes metoprolol U nivers tartrate 25 6-07 tartrate ity of mg tablet 00:00: 25 mg tablet Medical TAKE 1 Branch TABLET BY MOUTH TWICE DAILY metoprolol Yes metoprolol U nivers tartrate 25 6-07 tartrate ity of mg tablet 00:00: 25 mg tablet Medical TAKE 1 Branch TABLET BY MOUTH TWICE DAILY metoprolol Yes metoprolol U nivers tartrate 25 6-07 tartrate ity of mg tablet 00:00: 25 mg tablet Medical TAKE 1 Branch TABLET BY MOUTH TWICE DAILY metoprolol Yes metoprolol U nivers tartrate 25 6-07 tartrate ity of mg tablet 00:00: 25 mg tablet Medical TAKE 1 Branch TABLET BY MOUTH TWICE DAILY metoprolol Yes metoprolol U nivers tartrate 25 6-07 tartrate ity of mg tablet 00:00: 25 mg tablet Medical TAKE 1 Branch TABLET BY MOUTH TWICE DAILY metoprolol Yes metoprolol U nivers tartrate 25 6-07 tartrate ity of mg tablet 00:00: 25 mg tablet Medical TAKE 1 Branch TABLET BY MOUTH TWICE DAILY metoprolol Yes metoprolol U nivers tartrate 25 6-07 tartrate ity of mg tablet 00:00: 25 mg tablet Medical TAKE 1 Branch TABLET BY MOUTH TWICE DAILY metoprolol Yes metoprolol U nivers tartrate 25 6-07 tartrate ity of mg tablet 00:00: 25 mg tablet Medical TAKE 1 Branch TABLET BY MOUTH TWICE DAILY metoprolol Yes metoprolol U nivers tartrate 25 6-07 tartrate ity of mg tablet 00:00: 25 mg tablet Medical TAKE 1 Branch TABLET BY MOUTH TWICE DAILY metoprolol Yes metoprolol U nivers tartrate 25 6-07 tartrate ity of mg tablet 00:00: 25 mg tablet Medical TAKE 1 Branch TABLET BY MOUTH TWICE DAILY metoprolol Yes metoprolol U nivers tartrate 25 6-07 tartrate ity of mg tablet 00:00: 25 mg tablet Medical TAKE 1 Branch TABLET BY MOUTH TWICE DAILY metoprolol Yes metoprolol U nivers tartrate 25 6-07 tartrate ity of mg tablet 00:00: 25 mg tablet Medical TAKE 1 Branch TABLET BY MOUTH TWICE DAILY metoprolol Yes metoprolol U nivers tartrate 25 6-07 tartrate ity of mg tablet 00:00: 25 mg tablet Medical TAKE 1 Branch TABLET BY MOUTH TWICE DAILY metoprolol Yes metoprolol U nivers tartrate 25 6-07 tartrate ity of mg tablet 00:00: 25 mg tablet Medical TAKE 1 Branch TABLET BY MOUTH TWICE DAILY metoprolol Yes metoprolol U nivers tartrate 25 6-07 tartrate ity of mg tablet 00:00: 25 mg tablet Medical TAKE 1 Branch TABLET BY MOUTH TWICE DAILY metoprolol Yes metoprolol U nivers tartrate 25 6-07 tartrate ity of mg tablet 00:00: 25 mg tablet Medical TAKE 1 Branch TABLET BY MOUTH TWICE DAILY metoprolol Yes metoprolol U nivers tartrate 25 6-07 tartrate ity of mg tablet 00:00: 25 mg tablet Medical TAKE 1 Branch TABLET BY MOUTH TWICE DAILY metoprolol Yes metoprolol U nivers tartrate 25 6-07 tartrate ity of mg tablet 00:00: 25 mg tablet Medical TAKE 1 Branch TABLET BY MOUTH TWICE DAILY metoprolol Yes metoprolol U nivers tartrate 25 6-07 tartrate ity of mg tablet 00:00: 25 mg tablet Medical TAKE 1 Branch TABLET BY MOUTH TWICE DAILY metoprolol Yes metoprolol U nivers tartrate 25 6-07 tartrate ity of mg tablet 00:00: 25 mg tablet Medical TAKE 1 Branch TABLET BY MOUTH TWICE DAILY metoprolol Yes metoprolol U nivers tartrate 25 6-07 tartrate ity of mg tablet 00:00: 25 mg tablet Medical TAKE 1 Branch TABLET BY MOUTH TWICE DAILY metoprolol Yes metoprolol U nivers tartrate 25 6-07 tartrate ity of mg tablet 00:00: 25 mg tablet Medical TAKE 1 Branch TABLET BY MOUTH TWICE DAILY metoprolol Yes metoprolol U nivers tartrate 25 6-07 tartrate ity of mg tablet 00:00: 25 mg tablet Medical TAKE 1 Branch TABLET BY MOUTH TWICE DAILY metoprolol Yes metoprolol U nivers tartrate 25 6-07 tartrate ity of mg tablet 00:00: 25 mg tablet Medical TAKE 1 Branch TABLET BY MOUTH TWICE DAILY metoprolol Yes metoprolol U nivers tartrate 25 6-07 tartrate ity of mg tablet 00:00: 25 mg tablet Medical TAKE 1 Branch TABLET BY MOUTH TWICE DAILY metoprolol Yes metoprolol U nivers tartrate 25 6-07 tartrate ity of mg tablet 00:00: 25 mg tablet Medical TAKE 1 Branch TABLET BY MOUTH TWICE DAILY metoprolol Yes metoprolol U nivers tartrate 25 6-07 tartrate ity of mg tablet 00:00: 25 mg tablet Medical TAKE 1 Branch TABLET BY MOUTH TWICE DAILY metoprolol Yes metoprolol U nivers tartrate 25 6-07 tartrate ity of mg tablet 00:00: 25 mg tablet Medical TAKE 1 Branch TABLET BY MOUTH TWICE DAILY metoprolol Yes metoprolol U nivers tartrate 25 6-07 tartrate ity of mg tablet 00:00: 25 mg tablet Medical TAKE 1 Branch TABLET BY MOUTH TWICE DAILY metoprolol Yes metoprolol U nivers tartrate 25 6-07 tartrate ity of mg tablet 00:00: 25 mg tablet Medical TAKE 1 Branch TABLET BY MOUTH TWICE DAILY metoprolol Yes metoprolol U nivers tartrate 25 6-07 tartrate ity of mg tablet 00:00: 25 mg tablet Medical TAKE 1 Branch TABLET BY MOUTH TWICE DAILY metoprolol Yes metoprolol U nivers tartrate 25 6-07 tartrate ity of mg tablet 00:00: 25 mg tablet Medical TAKE 1 Branch TABLET BY MOUTH TWICE DAILY metoprolol Yes metoprolol U nivers tartrate 25 6-07 tartrate ity of mg tablet 00:00: 25 mg tablet Medical TAKE 1 Branch TABLET BY MOUTH TWICE DAILY metoprolol Yes metoprolol U nivers tartrate 25 6-07 tartrate ity of mg tablet 00:00: 25 mg tablet Medical TAKE 1 Branch TABLET BY MOUTH TWICE DAILY metoprolol Yes metoprolol U nivers tartrate 25 6-07 tartrate ity of mg tablet 00:00: 25 mg tablet Medical TAKE 1 Branch TABLET BY MOUTH TWICE DAILY metoprolol Yes metoprolol U nivers tartrate 25 6-07 tartrate ity of mg tablet 00:00: 25 mg tablet Medical TAKE 1 Branch TABLET BY MOUTH TWICE DAILY metoprolol Yes metoprolol U nivers tartrate 25 6-07 tartrate ity of mg tablet 00:00: 25 mg tablet Medical TAKE 1 Branch TABLET BY MOUTH TWICE DAILY metoprolol Yes metoprolol U nivers tartrate 25 6-07 tartrate ity of mg tablet 00:00: 25 mg tablet Medical TAKE 1 Branch TABLET BY MOUTH TWICE DAILY metoprolol Yes metoprolol U nivers tartrate 25 6-07 tartrate ity of mg tablet 00:00: 25 mg tablet Medical TAKE 1 Branch TABLET BY MOUTH TWICE DAILY metoprolol Yes metoprolol U nivers tartrate 25 6-07 tartrate ity of mg tablet 00:00: 25 mg tablet Medical TAKE 1 Branch TABLET BY MOUTH TWICE DAILY metoprolol Yes metoprolol U nivers tartrate 25 6-07 tartrate ity of mg tablet 00:00: 25 mg tablet Medical TAKE 1 Branch TABLET BY MOUTH TWICE DAILY metoprolol Yes metoprolol U nivers tartrate 25 6-07 tartrate ity of mg tablet 00:00: 25 mg tablet Medical TAKE 1 Branch TABLET BY MOUTH TWICE DAILY metoprolol Yes metoprolol U nivers tartrate 25 6-07 tartrate ity of mg tablet 00:00: 25 mg tablet Medical TAKE 1 Branch TABLET BY MOUTH TWICE DAILY metoprolol Yes metoprolol U nivers tartrate 25 6-07 tartrate ity of mg tablet 00:00: 25 mg tablet Medical TAKE 1 Branch TABLET BY MOUTH TWICE DAILY metoprolol Yes metoprolol U nivers tartrate 25 6-07 tartrate ity of mg tablet 00:00: 25 mg tablet Medical TAKE 1 Branch TABLET BY MOUTH TWICE DAILY metoprolol Yes metoprolol U nivers tartrate 25 6-07 tartrate ity of mg tablet 00:00: 25 mg tablet Medical TAKE 1 Branch TABLET BY MOUTH TWICE DAILY metoprolol Yes metoprolol U nivers tartrate 25 6-07 tartrate ity of mg tablet 00:00: 25 mg tablet Medical TAKE 1 Branch TABLET BY MOUTH TWICE DAILY metoprolol Yes metoprolol U nivers tartrate 25 6-07 tartrate ity of mg tablet 00:00: 25 mg tablet Medical TAKE 1 Branch TABLET BY MOUTH TWICE DAILY metoprolol Yes metoprolol U nivers tartrate 25 6-07 tartrate ity of mg tablet 00:00: 25 mg tablet Medical TAKE 1 Branch TABLET BY MOUTH TWICE DAILY metoprolol Yes metoprolol U nivers tartrate 25 6-07 tartrate ity of mg tablet 00:00: 25 mg tablet Medical TAKE 1 Branch TABLET BY MOUTH TWICE DAILY Immunizations Ordered Filled Immunization Date Status Comments Sour e Immunization Name Name Td 2008-05-16 Completed [facility] 00:00:00 [facility] Td 2008-05-16 Completed [facility] 00:00:00 [facility] Td 2008-05-16 Completed [facility] 00:00:00 [facility] Td 2008-05-16 Completed [facility] of 00:00:00 [facility] Td 2008-05-16 Completed University of 00:00:00 [facility] Td 2008-05-16 Completed [facility] 00:00:00 [facility] Td 2008-05-16 Completed [facility] 00:00:00 [facility] TD, NOS 2008-05-16 Completed [facility] 00:00:00 [facility] TD, NOS 2008-05-16 Completed [facility] 00:00:00 [facility] TD, NOS 2008-05-16 Completed [facility] 00:00:00 [facility] TD, NOS 2008-05-16 Completed [facility] 00:00:00 [facility] TD, NOS 2008-05-16 Completed [facility] 00:00:00 [facility] TD, NOS 2008-05-16 Completed [facility] 00:00:00 [facility] TD, NOS 2008-05-16 Completed [facility] 00:00:00 [facility] TD, NOS 2008-05-16 Completed [facility] 00:00:00 [facility] TD, NOS 2008-05-16 Completed [facility] 00:00:00 [facility] TD, NOS 2008-05-16 Completed [facility] 00:00:00 [facility] TD, NOS 2008-05-16 Completed [facility] 00:00:00 [facility] TD, NOS 2008-05-16 Completed [facility] 00:00:00 [facility] TD, NOS 2008-05-16 Completed [facility] 00:00:00 [facility] TD, NOS 2008-05-16 Completed [facility] 00:00:00 [facility] TD, NOS 2008-05-16 Completed [facility] 00:00:00 [facility] TD, NOS 2008-05-16 Completed [facility] 00:00:00 [facility] TD, NOS 2008-05-16 Completed [facility] of 00:00:00 [facility] TD, NOS 2008-05-16 Completed [facility] 00:00:00 [facility] TD, NOS 2008-05-16 Completed [facility] 00:00:00 [facility] TD, NOS 2008-05-16 Completed [facility] 00:00:00 [facility] TD, NOS 2008-05-16 Completed [facility] 00:00:00 [facility] TD, NOS 2008-05-16 Completed [facility] 00:00:00 [facility] TD, NOS 2008-05-16 Completed [facility] 00:00:00 [facility] TD, NOS 2008-05-16 Completed [facility] 00:00:00 [facility] TD, NOS 2008-05-16 Completed [facility] 00:00:00 [facility] TD, NOS 2008-05-16 Completed [facility] 00:00:00 [facility] TD, NOS 2008-05-16 Completed [facility] 00:00:00 [facility] TD, NOS 2008-05-16 Completed [facility] 00:00:00 [facility] TD, NOS 2008-05-16 Completed [facility] 00:00:00 [facility] TD, NOS 2008-05-16 Completed [facility] 00:00:00 [facility] TD, NOS 2008-05-16 Completed [facility] 00:00:00 [facility] TD, NOS 2008-05-16 Completed [facility] 00:00:00 [facility] TD, NOS 2008-05-16 Completed [facility] 00:00:00 [facility] TD, NOS 2008-05-16 Completed [facility] 00:00:00 [facility] TD, NOS 2008-05-16 Completed [facility] 00:00:00 [facility] TD, NOS 2008-05-16 Completed [facility] 00:00:00 [facility] TD, NOS 2008-05-16 Completed [facility] 00:00:00 [facility] TD, NOS 2008-05-16 Completed [facility] 00:00:00 [facility] TD, NOS 2008-05-16 Completed [facility] 00:00:00 [facility] TD, NOS 2008-05-16 Completed [facility] 00:00:00 [facility] TD, NOS 2008-05-16 Completed [facility] 00:00:00 [facility] TD, NOS 2008-05-16 Completed [facility] 00:00:00 [facility] TD, NOS 2008-05-16 Completed [facility] 00:00:00 [facility] TD, NOS 2008-05-16 Completed [facility] 00:00:00 [facility] TD, NOS 2008-05-16 Completed [facility] 00:00:00 [facility] TD, NOS 2008-05-16 Completed [facility] 00:00:00 [facility] TD, NOS 2008-05-16 Completed [facility] 00:00:00 [facility] TD, NOS 2008-05-16 Completed [facility] 00:00:00 [facility] TD, NOS 2008-05-16 Completed [facility] 00:00:00 [facility] TD, NOS 2008-05-16 Completed [facility] 00:00:00 [facility] TD, NOS 2008-05-16 Completed [facility] 00:00:00 [facility] TD, NOS 2008-05-16 Completed [facility] of 00:00:00 [facility] Branch TD, NOS 2008-05-16 Completed University of 00:00:00 [facility] TD, NOS 2008-05-16 Completed [facility] 00:00:00 [facility] TD, NOS 2008-05-16 Completed [facility] 00:00:00 [facility] TD, NOS 2008-05-16 Completed [facility] of 00:00:00 [facility] Branch TD, NOS 2008-05-16 Completed [facility] of 00:00:00 [facility] TD, NOS 2008-05-16 Completed [facility] of 00:00:00 [facility] Vital Signs Vital Name Observation Time Observation Value Comments Source Systolic blood 2022-12-07 15:46:00 104 mm[Hg] Univer sity of pressure [facility] Diastolic blood 2022-12-07 15:46:00 65 mm[Hg] Unive rsity of pressure [facility] Heart rate 2022-12-07 15:46:00 77 /min [facility] of [facility] Respiratory rate 2022-12-07 15:46:00 18 /min [facility] Body height 2022-12-07 15:46:00 177.8 cm Universi [facility] of [facility] Body weight 2022-12-07 15:46:00 127.914 kg [facility]i [facility] of [facility] BMI 2022-12-07 15:46:00 40.46 kg/m2 [facility] of [facility] Oxygen saturation in 2022-12-07 15:46:00 100 /min [facility] Arterial blood by [facility] Pulse oximetry Branch Systolic blood 2022-11-09 19:36:00 119 mm[Hg] Univer sity of pressure [facility] Diastolic blood 2022-11-09 19:36:00 84 mm[Hg] Unive rsity of pressure [facility] Heart rate 2022-11-09 19:36:00 78 /min [facility] of [facility] Body temperature 2022-11-09 19:36:00 36.44 Veronica [facility] ersity [facility] Body height 2022-11-09 19:36:00 177.8 cm [facility]i [facility] of [facility] Body weight 2022-11-09 19:36:00 128.232 kg [facility]i [facility] of [facility] BMI 2022-11-09 19:36:00 40.56 kg/m2 [facility] Systolic blood 2022-11-02 19:07:00 104 mm[Hg] Univer sity of pressure [facility] Diastolic blood 2022-11-02 19:07:00 53 mm[Hg] Unive rsity of pressure [facility] Heart rate 2022-11-02 19:07:00 68 /min [facility] Body height 2022-11-02 19:07:00 177.8 cm [facility] Body weight 2022-11-02 19:07:00 129.865 kg [facility] BMI 2022-11-02 19:07:00 41.08 kg/m2 [facility] Body height 2022-10-26 18:43:00 177.8 cm [facility] Body weight 2022-10-26 18:43:00 131.543 kg [facility] BMI 2022-10-26 18:43:00 41.61 kg/m2 [facility] Systolic blood 2022-09-23 20:53:00 106 mm[Hg] Univer sity of pressure [facility] Diastolic blood 2022-09-23 20:53:00 72 mm[Hg] Unive rsity of pressure [facility] Heart rate 2022-09-23 20:53:00 74 /min [facility] Body temperature 2022-09-23 20:53:00 35.78 Veronica [facility] ers[facility] Respiratory rate 2022-09-23 20:53:00 18 /min Univ ersity of [facility] Body height 2022-09-23 20:53:00 177.8 cm [facility] Body weight 2022-09-23 20:53:00 131.951 kg [facility] BMI 2022-09-23 20:53:00 41.74 kg/m2 [facility] Systolic blood 2022-09-20 19:59:00 126 mm[Hg] Univer sity of pressure [facility] Diastolic blood 2022-09-20 19:59:00 82 mm[Hg] Unive rsity of pressure [facility] Heart rate 2022-09-20 19:59:00 80 /min [facility] Respiratory rate 2022-09-20 19:59:00 18 /min Univ ersity of [facility] Body height 2022-09-20 19:59:00 177.8 cm [facility] Body weight 2022-09-20 19:59:00 127.007 kg [facility] BMI 2022-09-20 19:59:00 40.18 kg/m2 [facility] Oxygen saturation in 2022-09-20 19:59:00 99 /min [facility] of Arterial blood by [employer] [facility]iels Pulse oximetry Branch Systolic blood 2022-08-24 20:46:00 130 mm[Hg] Univer sity of pressure [facility] Diastolic blood 2022-08-24 20:46:00 80 mm[Hg] Unive rsity of pressure [facility] Heart rate 2022-08-24 20:46:00 69 /min [facility] Body temperature 2022-08-24 20:46:00 35.89 Veronica [facility] of [facility] Body height 2022-08-24 20:46:00 177.8 cm [facility] Body weight 2022-08-24 20:46:00 129.593 kg [facility] BMI 2022-08-24 20:46:00 40.99 kg/m2 [facility] Systolic blood 2022-08-01 18:12:39 122 mm[Hg] Univer sity of pressure [facility] Diastolic blood 2022-08-01 18:12:39 77 mm[Hg] Unive rsity of pressure [facility] Heart rate 2022-08-01 18:12:39 63 /min [facility] Respiratory rate 2022-08-01 18:12:39 19 /min Univ ersity of [facility] Oxygen saturation in 2022-08-01 18:12:39 100 /min [facility] of Arterial blood by [employer] niels Pulse oximetry Branch Body temperature 2022-08-01 15:29:00 36.5 Veronica [facility] Body height 2022-08-01 15:29:00 177.8 cm [facility] Body weight 2022-08-01 15:29:00 127.007 kg [facility] BMI 2022-08-01 15:29:00 40.18 kg/m2 [facility] [place] Medical [facility] Body height 2022-07-08 14:48:00 177.8 cm [facility] Body weight 2022-07-08 14:48:00 127.007 kg [facility] BMI 2022-07-08 14:48:00 40.18 kg/m2 [facility] Body height 2022-04-21 21:31:00 175.3 cm [facility] Body weight 2022-04-21 21:31:00 124.739 kg [facility] BMI 2022-04-21 21:31:00 40.61 kg/m2 [facility] Systolic blood 2021-12-31 21:35:00 119 mm[Hg] Univer sity of pressure [facility] Diastolic blood 2021-12-31 21:35:00 76 mm[Hg] Unive rsity of pressure [facility] Heart rate 2021-12-31 21:35:00 79 /min [facility] Body height 2021-12-31 21:35:00 175.3 cm [facility] Body weight 2021-12-31 21:35:00 126.962 kg [facility] BMI 2021-12-31 21:35:00 41.33 kg/m2 [facility] Oxygen saturation in 2021-12-31 21:35:00 100 /min [facility] Arterial blood by [facility] Pulse oximetry Branch Systolic (mm Hg) 2021-11-03 15:47:00 Bertram Jackson Diastolic (mm Hg) 2021-11-03 15:47:00 Mem miguel [place] Heart Rate 2021-11-03 15:47:00 [facility] Respitory Rate 2021-11-03 15:47:00 Ortega burnett [place] Height 2021-11-03 15:47:00 172.72 cm [facility] Weight 2021-11-03 15:47:00 [facility] BMI Calculated 2021-11-03 15:47:00 Ortega Hastings Systolic (mm Hg) 2021-09-21 14:18:00 Bertramjc graham Manuel Diastolic (mm Hg) 2021-09-21 14:18:00 Connor Jackson Heart Rate 2021-09-21 14:18:00 Amy Jackson Respitory Rate 2021-09-21 14:18:00 Ortega hortencia Manuel Height 2021-09-21 14:18:00 175.26 cm Amy Jackson Weight 2021-09-21 14:18:00 Amy Jackson BMI Calculated 2021-09-21 14:18:00 Ortega Hastings Procedures Procedure Date / Time Performing Clinician Source Performed CONSENT/REFUSAL FOR 2022-10-26 18:39:18 Doctor Unadavidigned, [facility] DIAGNOSIS AND TREATMENT [facility] ASSIGNMENT OF BENEFITS 2022-10-26 18:38:51 Doctor Unassbirgit, [facility] MR LUMBAR SPINE WO 2022-09-20 21:00:07 Bernardo [facility] CONTRAST Medical Branch INSURANCE CORRESPONDENCE 2022-09-06 05:01:00 Doctor López, [facility] PATIENT QUESTIONNAIRE 2022-08-25 05:01:00 Doctor López, [facility] XR LUMBAR SPINE 2 VW 2022-08-01 16:37:45 Katlyn Garcia [facility] [place] POCT TEST 2022-08-01 16:05:00 Katlyn Garcia [facility] [place] URINALYSIS 2022-08-01 16:04:00 Katlyn Garcia [facility] [place] [facility] CONSENT/REFUSAL FOR 2022-08-01 15:26:23 Doctor López, [facility] DIAGNOSIS AND TREATMENT [facility] REFERRAL- 2022-07-12 06:01:00 Doctor López, [facility] REQUEST/RESPONSE [facility] PATIENT FINANCIAL 2022-07-08 14:42:49 Doctor López, [facility] POLICY [facility] REFERRAL- 2022-06-17 06:01:00 Doctor López, [facility] REQUEST/RESPONSE [facility] REFERRAL- 2022-06-16 06:01:00 Doctor López, [facility] REQUEST/RESPONSE [facility] BI US GUIDED CORE BREAST 2022-06-15 17:40:40 Sandeep Galloway [facility] BIOPSY RIGHT Medical Branch ASSIGNMENT OF BENEFITS 2022-06-15 16:10:47 [facility] BI ULTRASOUND BREAST 2022-06-08 14:40:00 Sandeep Galloway [facility] COMPLETE RIGHT Medical Branch BI DIAGNOSTIC 2022-06-08 14:09:05 Sandeep Galloway [facility] TOMOSYNTHESIS RIGHT Medical Bran ch REFERRAL- 2022-05-21 06:01:00 Doctor Unassigned, [facility] REQUEST/RESPONSE [facility] Repair of umbilical [facility] Her sol hernia<sup>2</sup> [facility] Manuel section<sup>1</sup> Encounters Start End Encounter Admission Attending Care Care Encounter Source Date/Time Date/Time Type Type Clinicians Facility Department ID 2022-12-14 2022-12-14 Outpatient R LAVERNE [facility] [id number] Univers 14:30:00 14:30:00 SANDEEP gan o f [facility] 2022-12-07 2022-12-07 Outpatient R KATHARINE [facility] [id number] Univers 10:30:00 23:59:00 NIA gan [facility] 2022-12-07 2022-12-07 Hospital Nia Alcantar [facility] 1.2 .840.114 [id number] Univers 10:24:03 23:59:00 Encounter Galina Dominguez 350.1.13.10 malik Monahan, Almaztati DIANA 4.2.7.2.686 [facility] [id number] [facility] 803 Branch (CLC) 2022-11-09 2022-11-09 Outpatient Julianna ALCANTAR [facility] [id number] Univers 14:20:00 15:14:03 NIA gan [facility] 2022-11-09 2022-11-09 Office Katharine [facility] 1.2.840.114 [id number] Univers 14:20:00 15:14:03 Visit Nia ACUNA 350.1.13.10 ity [facility] [place].2.7.2.[place] [phone] Ar hali NICE 198 [facility] 2022-11-09 2022-11-09 Letter [facility] 1.2.840.114 [id number] Univers 00:00:00 00:00:00 (Out) Nia [facility] 350.1.13.10 ity of [facility] 4.2.7.2.686 [place] AT [phone] Ar hali Bui [facility] 2022-11-05 2022-11-05 Letter [facility] 1.2.670.690 [id number] Univers 00:00:00 00:00:00 (Out) Peter L HEALTH 350.1.13.10 it y of [place] 4.2.7.2.686 Luis as AI?BLEA [phone] Ar hali RHODES [address] [place] [address] OFFICE [facility] 2022-11-05 2022-11-05 Telephone [facility] 1.2.626.823 [id number] Univers 00:00:00 00:00:00 Rylee S HEALTH 350.1.13.10 it y of [place] 4.2.7.2.686 Luis as AI?BLEA [phone] Ar hali RHODES [address] [place] [address] OFFICE [facility] 2022-11-02 2022-11-02 Outpatient [facility] [id number] Univers 14:00:00 14:28:35 RYLEE ity of [facility] 2022-11-02 2022-11-02 Office [facility] 1.2.840.114 [id number] Univers 14:00:00 14:28:35 Visit [facility] HEALTH 350.1.13.10 it y of [place] 4.2.7.2.686 Luis as AI?BLEA [phone] Ar hali RHODES [address] [place] [address] OFFICE [facility] 2022-10-28 2022-10-28 Telephone [facility] 1.2.840.114 [id number] Univers 00:00:00 00:00:00 Peter L HEALTH 350.1.13.10 it y of [place] 4.2.7.2.686 Luis as AI?BLEA [phone] Me hali RHODES [address] MEDICAL OFFICE [facility] 2022-10-26 2022-10-26 Office Arely [facility] 1.2.840.114 [id number] Univers 13:45:00 14:00:00 Visit [facility] 350.1.13.10 it y of [place] 4.2.7.2.686 Luis as AI?BLEA [id number] Me hali RHODES 198 [facility] OFFICE [facility] 2022-10-26 2022-10-26 Outpatient R ARELY [facility] [id number] Univers 13:45:00 13:45:00 RYLEE ity of [facility] 2022-10-26 2022-10-26 Orders Doctor AARON 1.2.840.114 [id number] Univers 00:00:00 00:00:00 Only Unassigned, PREMA 350.1.13.10 ity of [place] [facility] 4.2.7.2.686 Luis as [id number] [address] 2022-10-21 2022-10-21 Telephone Arely [facility] 1.2.603.792 [id number] Univers 00:00:00 00:00:00 [facility] 350.1.13.10 it y of [place] 4.2.7.2.686 Luis as AI?BLEA [phone] Me hali RHODES 198 [facility] OFFICE [facility] 2022-10-06 2022-10-06 Patient Katharine [facility] 1.2.840.114 [id number] Univers 00:00:00 00:00:00 Secure Msg Nia SPECIALTY 350.1.13.10 ity of [facility] 4.2.7.2.[place] [phone] Me hali NICE 198 [facility] 2022-09-27 2022-09-27 Telephone Laverne [facility] 1.2.840.114 [id number] Univers 00:00:00 00:00:00 Sandeep Monet BOX WORKER 350.1.13.[address] [facility] 4.2.7.2.686 Luis as MATERNAL [phone] Med ical & CHILD 107 [facility] 2022-09-25 2022-09-25 Telephone [facility] 1.2.840.114 [id number] Univers 00:00:00 00:00:00 Peter L HEALTH 350.1.13.10 it y of [place] 4.2.7.2.686 Luis as AI?BLEA [id number] Ar hali RHODES 198 [facility] 2022-09-23 2022-09-23 Outpatient [facility] [id number] Univers 15:45:00 16:16:03 SANDEEP ity o f [facility] 2022-09-23 2022-09-23 Office [facility] 1.2.727.317 [id number] Univers 15:45:00 16:16:03 Visit Sandeep Monet BOX WORKER 350.1.13.10 ity [facility] 4.2.7.2.686 Luis as MATERNAL [phone] Med ical & CHILD 107 [facility] 2022-09-22 2022-09-22 Telephone [facility] 1.2.431.358 [id number] Univers 00:00:00 00:00:00 [facility] 350.1.13.10 it y of [place] 4.2.7.2.686 Luis as AI?BLEA [id number] Ar hali RHODES 198 [facility] 2022-09-20 2022-09-20 Outpatient R KATHARINE [facility] [id number] Univers 14:16:05 23:59:00 NIA gan of [facility] 2022-09-20 2022-09-20 [facility] 1.2.452.330 [id number] Univers 14:16:05 23:59:00 Encounter Nia SPECIALTY 350.1.13.10 ity [facility] 4.2.7.2.686 [place] [phone] Ar hali NICE 804 [facility] 2022-09-16 2022-09-16 Outpatient Carmen_[facility] [id number] [place] 00:00:00 00:00:00 ye_Olkaityu 0504 [facility] 2022-09-16 2022-09-16 [facility] 1.2.840.114 [id number] Univers 00:00:00 00:00:00 Rylee S HEALTH 350.1.13.10 it y of [place] 4.2.7.2.686 Luis as AI?BLEA [id number] Ar hali RHODES [address] [place] [address] 2022-09-06 2022-09-06 Orders Doctor WALKER 1.2.840.114 [id number] Univers 00:00:00 00:00:00 Only Unassigned, PREMA 350.1.13.10 ity of [facility] 4.2.7.2.686 Luis as [id number] [address] 2022-08-25 2022-08-25 Orders Doctor AARON 1.2.840.114 [id number] Univers 00:00:00 00:00:00 Only Unassigned, PREMA 350.1.13.10 ity of [facility] [facility] 4.2.7.2.686 Luis as [phone] [address] 2022-08-24 2022-08-24 Outpatient [facility] [id number] Univers 15:50:00 16:55:39 NIA gan of [facility] 2022-08-24 2022-08-24 Office [facility] 1.2.840.114 [id number] Univers 15:50:00 16:55:39 Visit Nia SPECIALTY 350.1.13.10 ity of [facility] 4.2.7.2.686 [place] AT [phone] Ar zoehortencia NICE [address] [place] [address] 2022-08-18 2022-08-18 [facility] 1.2.840.114 [id number] Univers 00:00:00 00:00:00 Rylee S HEALTH 350.1.13.10 it y of [place] 4.2.7.2.686 Luis as AI?BLEA [id number] Ar hali RHODES [address] [place] [address] 2022-08-01 2022-08-01 Emergency X KATLYN GARCIA [facility] ERT 1 [id number] Univers 10:30:00 13:24:00 KATLYN GARCIA [facility] 2022-08-01 2022-08-01 Emergency [facility] 1.2.840.114 [id number] Univers 10:30:00 13:24:00 Katlyn HEALTH 350.1.13.10 it y of [place] 4.2.7.2.686 [place] [facility] [phone] [address] ([facility]) 2022-08-01 2022-08-01 Outpatient R ARELY [facility] [id number] Univers 09:07:10 10:29:00 RYLEE ity [facility] 2022-08-01 2022-08-01 [facility] 1.2.840.114 [id number] Univers 09:07:10 10:29:00 Encounter Rylee S SPECIALTY 350.1.13.10 ity of [facility] 4.2.7.2.686 [facility] AT [phone] Ar hali [place] 804 [facility] 2022-07-20 2022-07-20 Telephone [facility] 1.2.840.114 [id number] Univers 00:00:00 00:00:00 Peter L HEALTH 350.1.13.10 it [facility] 4.2.7.2.686 Luis as AI?BLEA [phone] [facility] [address] MEDICAL OFFICE [facility] 2022-07-20 2022-07-20 Refill [facility] 1.2.840.114 [id number] Univers 00:00:00 00:00:00 Rylee S HEALTH 350.1.13.10 it y of [place] 4.2.7.2.686 Luis as AI?BLEA [id number] [facility] [address] MEDICAL OFFICE [facility] 2022-07-12 2022-07-12 Orders Doctor AARON 1.2.840.114 [id number] Univers 00:00:00 00:00:00 Only Unassigned, PREMA 350.1.13.10 ity of [facility] 4.2.7.2.686 Luis as [phone] [address] 2022-07-08 2022-07-08 Outpatient R ARELY [facility] [id number] Univers 08:45:00 11:37:54 RYLEE ity of [facility] 2022-07-08 2022-07-08 Office Arely [facility] 1.2.840.114 [id number] Univers 08:45:00 11:37:54 Visit [facility] 350.1.13.10 it y of [place] 4.2.7.2.686 Luis as AI?BLEA [id number] Me zoehortencia RHODES 198 [facility] OFFICE [facility] 2022-07-08 2022-07-08 Orders Doctor AARON 1.2.840.114 [id number] Univers 00:00:00 00:00:00 Only Unassigned, PREMA 350.1.13.10 ity of [place] [facility] 4.2.7.2.686 Luis as [id number] [address] 2022 2022 Laboratory Only, Ang Db Test [facility] 1.2.8 40.114 [id number] Univers 09:30:00 09:45:00 Only Unknown, [facility] 350.1.13.10 ity of [place] 4.2.7.2.686 Luis as AI?BLEA [id number] Ar zoehortencia RUSLANKIMBERLY 370 [facility] OFFICE [facility] 2022 2022 Outpatient Julianna HANEY [facility] [id number] Univers 09:30:00 09:26:43 KARAN ity of [facility] 2022-06-18 2022-06-18 Refill Arely [facility] 1.2.840.114 [id number] Univers 00:00:00 00:00:00 [facility] 350.1.13.10 it y of [place] 4.2.7.2.686 Luis as AI?BLEA [phone] Ar zoehortencia RUSLANKIMBERLY 198 [facility] OFFICE [facility] 2022-06-18 2022-06-18 Telephone Laverne [facility] 1.2.840.114 [id number] Univers 00:00:00 00:00:00 Sandeep Monet BOX WORKER 350.1.13.[address] [facility] 4.2.7.2.686 Luis as MATERNAL [phone] Med ical & CHILD [address] [place] [address] 2022-06-18 2022-06-18 Telephone [facility] 1.2.045.951 [id number] Univers 00:00:00 00:00:00 [facility] 350.1.13.10 it y of [place] 4.2.7.2.686 Luis as AI?BLEA [id number] [address] MEDICAL OFFICE BUILDING 2022-06-17 2022-06-17 Orders Doctor AARON 1.2.840.114 [id number] Univers 00:00:00 00:00:00 Only Unassigned, PREMA 350.1.13.10 ity of [facility] [facility] 4.2.7.2.686 Luis as [id number] [facility] [address] 2022-06-16 2022-06-16 Orders Doctor AARON 1.2.840.114 [id number] Univers 00:00:00 00:00:00 Only Unassigned, PREMA 350.1.13.10 ity of [facility] [facility] 4.2.7.2.686 Luis as [phone] [address] 2022-06-15 2022-06-15 Outpatient R [facility] [id number] Univers 10:11:52 23:59:00 ASNDEEP rachel [facility] 2022-06-15 2022-06-15 [facility] 1.2.840.114 [id number] Univers 10:11:52 23:59:00 Encounter Sandeep CHILDS 350.1.13.10 ity of [place] 4.2.7.2.686 [place] [facility] [phone] [facility] [address] 2022-06-15 2022-06-15 Orders Doctor WALKER 1.2.840.114 [id number] Univers 00:00:00 00:00:00 Only Unassigned, PREMA 350.1.13.10 ity of [facility] [facility] 4.2.7.2.686 Luis as [id number] [facility] [address] 2022-06-10 2022-06-10 Telephone [facility] 1.2.840.114 [id number] Univers 00:00:00 00:00:00 Sandeep Monet BOX WORKER 350.1.13.10 ity of [facility] 4.2.7.2.686 Luis as MATERNAL [id number] [facility] & CHILD [address] [place] [address] 2022-06-10 2022-06-10 [facility] 1.2.840.114 [id number] Univers 00:00:00 00:00:00 Sandeep C BOX WORKER 350.1.13.10 ity of [facility] 4.2.7.2.686 Luis as MATERNAL [id number] [facility] CHILD [address] [place] [address] 2022-06-08 2022-06-08 [facility] 1.2.840.114 [id number] Univers 07:34:10 23:59:00 Encounter Sandeep C NAZ 350.1.13.10 ity of [place] 4.2.7.2.686 [facility] [id number] [facility] 8[address] 2022-06-08 2022-06-08 Outpatient R [facility] [id number] Univers 07:33:13 07:33:13 SANDEEP ity o f [facility] 2022-06-08 2022-06-08 [facility] 1.2.840.114 [id number] Univers 07:33:13 07:33:13 Encounter Sandeep C NAZ 350.1.13.10 ity of [place] 4.2.7.2.686 [facility] [id number] [facility] [address] 2022-05-21 2022-05-21 Orders Doctor AARON 1.2.840.114 [id number] Univers 00:00:00 00:00:00 Only Unassigned, PREMA 350.1.13.10 ity of [place] [facility] 4.2.7.2.686 Luis as [id number] [facility] [address] 2022-05-19 2022-05-19 [facility] 1.2.840.114 [id number] Univers 00:00:00 00:00:00 [facility] 350.1.13.10 it y of [place] 4.2.7.2.686 Luis as AI?BLEA [id number] Ar hali RHODES 198 [facility] 2022-04-23 2022-04-23 Telephone [facility] 1.2.840.114 [id number] Univers 00:00:00 00:00:00 Sandeep Monet BOX WORKER 350.1.13.[address] [facility] 4.2.7.2.686 Luis as MATERNAL [id number] Med ical & CHILD 107 [facility] 2022-04-21 2022-04-21 Outpatient [facility] [id number] Univers 15:30:00 16:17:45 [facility] ity [facility] 2022-04-21 2022-04-21 Office [facility] 1.2.840.114 [id number] Univers 15:30:00 16:17:45 Visit [facility] 350.1.13.10 it y of [place] 4.2.7.2.686 Luis as AI?BLEA [id number] Ar hali RHODES 198 [facility] 2022-04-07 2022-04-07 Outpatient R [facility] [id number] Univers 08:06:09 23:59:00 SANDEEP gan o f [facility] 2022-04-07 2022-04-07 [facility] 1.2.840.114 [id number] Univers 08:06:09 23:59:00 Encounter Sandeep CHILDS 350.1.13.10 ity [facility] 4.2.7.2.686 [place] [id number] [address] 2022-04-04 2022-04-04 Refill [facility] 1.2.840.114 [id number] Univers 00:00:00 00:00:00 [facility] 350.1.13.10 it y of [place] 4.2.7.2.686 Luis as AI?BLEA [id number] Ar hali RHODES 198 [facility] 2022-02-03 2022-02-03 Ambulatory nullFlavo MNA [id number] Memoria 15:45:00 15:45:00 Pre-Reg r Neurology 03 l Ksenia Jackson 2022-02-03 2022-02-03 Ambulatory nullFlavo MNA [id number] Memoria 15:45:00 15:45:00 Pre-Reg r Neurology 03 l Ksenia Jackson 2022-02-03 2022-02-03 Outpatient MHIE MHIE [id number] Memoria 10:45:00 10:45:00 03 loulou Jackson 2022-02-03 2022-02-03 Outpatient Del[facility] [id number] 10:45:00 10:45:00 José Miguel Ruma Givens 2022-02-03 2022-02-03 Outpatient R MALU PRITCHETT [facility] [id number] Univers 09:00:00 09:00:00 MALU PRITCHETT [facility] 2021-12-31 2021-12-31 [facility] [id number] Univers 15:59:04 23:59:00 [facility] 2021-12-31 2021-12-31 Hospital [facility] 1.2.840.114 [id number] Univers 15:59:04 23:59:00 Encounter [facility]e [facility] 350.1.13.10 [facility] 4.2.7.2.686 [place] [facility] [id number] [address] 2021-12-31 2021-12-31 Outpatient R ARELY [facility] [id number] Univers 16:15:00 17:02:00 RYLEE [facility] 2021-12-31 2021-12-31 Office [facility] 1.2.840.114 [id number] Univers 16:15:00 17:02:00 Visit [facility] 350.1.13.10 it y [facility] 4.2.7.2.686 Luis as AI?BLEA [id number] [address] MEDICAL OFFICE [facility] 2021-12-31 2021-12-31 Outpatient Julianna MCGEE [facility] [id number] Univers 16:15:00 17:02:00 RYLEE [facility] 2021-12-31 2021-12-31 Telephone [facility] 1.2.371.841 [id number] Univers 00:00:00 00:00:00 [facility] 350.1.13.10 it y of [place] 4.2.7.2.686 Luis as AI?BLEA [phone] Ar hali [address] MEDICAL OFFICE BUILDING 2021-12-31 2021-12-31 Orders Doctor AARON 1.2.840.114 [id number] Univers 00:00:00 00:00:00 Only Unassigned, PREMA 350.1.13.10 ity of [place] [facility] 4.2.7.2.686 Luis as [id number] [facility] [address] 2021-12-22 2021-12-22 [facility] 1.2.840.114 [id number] Univers 08:28:00 23:59:00 Encounter Sandeep Monet [place] 350.1.13.10 ity of [place] 4.2.7.2.686 [place] [id number] [facility] [address] 2021-12-22 2021-12-22 Outpatient R AKINERLANGER [facility] [id number] Univers 00:00:00 23:59:00 SANDEEP greene [facility] 2021-12-10 2021-12-10 Outpatient [facility] [id number] Univers 09:15:00 10:07:09 SANDEEP greene [facility] 2021-12-10 2021-12-10 Office [facility] 1.2.319.631 [id number] Univers 09:15:00 10:07:09 Visit Sandeep Monet BOX WORKER 350.1.13.[address] [facility] 4.2.7.2.686 Luis as MATERNAL [phone] Med ical & CHILD [address] [place] [address] 2021-12-10 2021-12-10 Out[facility] [id number] Univers 09:15:00 10:07:09 SANDEEP rachel [facility] 2021-12-10 2021-12-10 Outpatient [facility] [id number] Univers 09:15:00 09:15:00 SANDEEP ity o f [facility] 2021-12-09 2021-12-09 [facility] [id number] Univers 00:00:00 00:00:00 [facility] [id number] it y of [place] [id number] Luis as AI?BLEA [phone] [facility] [address] MEDICAL OFFICE [facility] 2021-11-11 2021-11-11 Telephone [facility] [id number] Univers 00:00:00 00:00:00 Sandeep Monet [employer] [id number] ity [facility] [id number] Luis as MATERNAL [phone] [facility] ical & CHILD [address] [place] [address] 2021-11-10 2021-11-10 [facility] [id number] Univers 09:30:00 09:34:46 SANDEEP gabinoy o ivrginie [facility] 2021-11-10 2021-11-10 Office [facility] [id number] Univers 09:30:00 09:34:46 Visit Sandeep Monet [employer] [id number] ity [facility] [id number] Luis as MATERNAL [phone] [facility] & [address] 2021-11-03 2021-11-04 Outpatient nullFlavo MNA [id number] Memoria 15:45:00 04:59:59 r Neurology 02 l Ksenia Jackson 2021-11-03 2021-11-04 Outpatient nullFlavo MNA [id number] Memoria 15:45:00 04:59:59 r Neurology 02 loulou Jackson 2021-11-03 2021-11-03 Outpatient JAROD Brock [id number] 10:45:00 23:59:59 José Miguel Grant Givens 2021-11-03 2021-11-03 Outpatient BRIIIE DEJA [id number] Memoria 10:45:00 10:45:00 Grant Jackson 2021-10-28 2021-10-28 Orders Doctor WALKER [id number] Univers 00:00:00 00:00:00 Only Unassigned, PREMA [id number] ity of [place] [facility] [id number] Luis as [phone] [address] 2021-10-20 2021-10-20 [facility]phone [facility] 1.2.840.114 [id number] Univers 00:00:00 00:00:00 Peter Augustine HEALTH 350.1.13.10 it y of [facility] 4.2.7.2.686 Luis as AI?BLEA [phone] Ar hali MEAGAN [address] [place] [address] OFFICE [facility] 2021-10-16 2021-10-17 Outpt Diag nullFlavo [facility] [id number] Memoria 11:32:00 04:59:00 Services r Outpatient 00 l Imaging Manuel [place] 2021-10-16 2021-10-17 Outpt Diag nullFlavo [facility] [id number] Memoria 11:32:00 04:59:00 Services r Outpatient 00 l Imaging Manuel [place] 2021-10-16 2021-10-16 Outpatient Delmy VICK [facility] [id number] 06:32:00 23:59:00 José Miguel 00 [place] 2021-10-05 2021-10-05 Outpatient Julianna MCGEE [facility] [id number] Univers 15:15:00 15:59:34 [facility] 2021-10-05 2021-10-05 Office [facility] 1.2.840.114 [id number] Univers 15:15:00 15:30:00 Visit Rylee [facility] 350.1.13.10 it y of [place] 4.2.7.2.686 Luis as AI?BLEA [phone] Ar hali MERCERKIMBERLY [address] [place] [address] 2021-10-05 2021-10-05 Outpatient Julian[facility] [id number] Univers 15:15:00 15:15:00 RYLEE gan [facility] 2021-10-05 2021-10-05 Orders Doctor WALKER 1.2.840.114 [id number] Univers 00:00:00 00:00:00 Only Unassigned, PREMA 350.1.13.10 ity of [facility] 4.2.7.2.686 Luis [phone] [facility] [address] 2021-09-22 2021-09-22 Laboratory Only, Adc Test [facility] 1.2.840. 114 [id number] Univers 10:15:00 10:30:00 Only Harpreet Rust 350.1.13.10 ity of [place] 4.2.7.2.686 [facility] [phone] [facility] [address] 2021-09-22 2021-09-22 Outpatient R BARRERA [facility] [id number] [facility] 10:15:00 10:15:00 HARPREET italbert [facility] 2021-09-21 2021-09-22 Outpatient nullFlavo MNA [id number] Memoria 14:00:00 04:59:59 r Neurology 01 loulou [place] 2021-09-21 2021-09-22 Outpatient nullFlavo MNA [id number] Memoria 14:00:00 04:59:59 r Neurology 01 loulou [place] 2021-09-21 2021-09-21 Outpatient JAROD Brock [id number] 09:00:00 23:59:59 José Miguel Ramiro [place] 2021-09-21 2021-09-21 Outpatient MHIE BRIIIE [id number] Memoria 09:00:00 09:00:00 01 loulou Jackson 2021-09-18 2021-09-18 Ambulatory nullFlavo MNA [id number] Memoria 20:30:00 20:30:00 Pre-Reg r Neurology 00 loulou Jackson 2021-09-18 2021-09-18 Ambulatory nullFlavo MNA [id number] Memoria 20:30:00 20:30:00 Pre-Reg r Neurology 00 l Ksenia Jackson 2021-09-18 2021-09-18 Outpatient MHIE BRIIIE [id number] Memoria 15:30:00 15:30:00 00 loulou Jackson 2021-09-18 2021-09-18 Outpatient JAROD BrockMISCHER [id number] 15:30:00 15:30:00 José Miguel Ariana Givens 2021-07-20 2021-07-20 Outpatient MORGAN [facility] [place]or 11:13:00 11:13:00 0307 [facility] 2021-06-18 2021-06-18 Telephone Arely [facility] 1.2.008.902 [id number] Univers 00:00:00 00:00:00 Rylee [facility] 350.1.13.10 it y of [place] 4.2.7.2.686 Luis as AI?BLEA [phone] Ar hali RHODES [address] MEDICAL OFFICE [facility] 2021-06-16 2021-06-16 Orders Doctor AARON 1.2.840.114 [id number] Univers 00:00:00 00:00:00 Only Unassigned, PREMA 350.1.13.10 ity of [place] [facility] 4.2.7.2.686 Luis as [phone] [address] 2021-06-08 2021-06-08 Office [facility] 1.2.840.114 [id number] Univers 16:15:00 16:30:00 Visit Rylee [facility] 350.1.13.10 it y of [place] 4.2.7.2.686 Luis as AI?BLEA [phone] Ar hali RHODES 198 [facility] OFFICE [facility] 2021-06-08 2021-06-08 Outpatient Julianna MCGEE [facility] [id number] Univers 16:15:00 16:15:00 RYLEE gan [facility] 2021-03-19 2021-03-19 Outpatient Julianna NOEL [facility] [id number] Univers 08:30:00 08:30:00 JEFRY gan [facility] 2020-12-16 2020-12-16 Office Laverne [facility] 1.2.585.885 [id number] Univers 14:33:41 15:11:12 Visit Sandeep Monet BOX WORKER 350.1.13.[address] [facility] 4.2.7.2.686 Luis as MATERNAL [phone] Med ical & CHILD [address] [place] [address] 2020-12-16 2020-12-16 Outpatient R [facility] [id number] Univers 14:30:00 14:30:00 SANDEEP greene f [facility] 2020-12-11 2020-12-11 [facility] 1.2.840.114 [id number] Univers 09:29:51 23:59:00 Encounter Sandeep Childs 350.1.13.10 ity [facility] 4.2.7.2.686 [facility] [id number] [facility] [address] 2020-12-11 2020-12-11 Outpatient R [facility] [id number] Univers 00:00:00 00:00:00 SANDEEPANNETTE gan o virginie [facility] 2020-12-08 2020-12-08 Telephone [facility] 1.2.840.114 [id number] Univers 00:00:00 00:00:00 Sandeep C BOX WORKER 350.1.13.[address] [facility] 4.2.7.2.686 Luis as MATERNAL [phone] [address] 2020-12-05 2020-12-05 [facility] 1.2.840.114 [id number] Univers 16:45:00 23:59:00 Encounter Sandeep Childs 350.1.13.10 ity [facility] 4.2.7.2.686 [facility] [phone] [facility] [address] 2020-12-05 2020-12-05 Outpatient R [facility] [id number] Univers 00:00:00 00:00:00 SANDEEP gabinoalbert o f [facility] 2020-12-02 2020-12-02 Office [facility] 1.2.991.315 [id number] Univers 10:44:52 12:00:25 Visit Sandeep Chiki BOX WORKER 350.1.13.[address] [facility] 4.2.7.2.686 Luis as MATERNAL [phone] [facility] [address] [place] [address] 2020-12-02 2020-12-02 Outpatient R LAVERNE [facility] [id number] Univers 11:00:00 11:00:00 SANDEEP lloydalbert o f [facility] 2020-12-02 2020-12-02 Orders Doctor AARON 1.2.840.114 [id number] Univers 00:00:00 00:00:00 Only Unassigned, PREMA 350.1.13.10 ity of [place] [facility] 4.2.7.2.686 Luis as [phone] [address] 2020-11-19 2020-11-19 Telephone Juan [facility] 1.2.971.028 [id number] Univers 00:00:00 00:00:00 N[facility] 350.1.13.10 it y of [place] 4.2.7.2.686 Luis as Professio [phone] Ar dical nal [address] Office [facility] 2020-11-18 2020-11-18 Laboratory Lab, Adc Fam Pob I [facility] 1.2. 840.114 [id number] Univers 15:11:38 15:31:38 Only [facility] 350.1.13.10 ity of [place] 4.2.7.2.686 Luis as Professio [phone] Ar dical nal 044 [facility] 2020-11-18 2020-11-18 Outpatient R JUAN [facility] [id number] Univers 15:00:00 15:00:00 NIVIA ity [facility] 2020-11-13 2020-11-13 Office Peter Monique [facility] 1.2.840. 114 [id number] Univers 08:47:27 09:07:44 Visit Rylee Mcgee [facility] 350.1.13.10 ity of Surgical 4.2.7.2.686 Luis as Specialti [phone] Ar dical es 198 [facility] 2020-11-13 2020-11-13 Outpatient R ARELY [facility] [id number] Univers 09:00:00 09:00:00 RYLEE gan [facility] 2020-10-23 2020-10-23 Office [facility] 1.2.840.114 [id number] Univers 08:58:06 09:13:06 Visit [facility] 350.1.13.10 it y of Surgical 4.2.7.2.686 Luis as Specialti [id number] Ar dical es 198 [facility] 2020-10-23 2020-10-23 Out[facility] [id number] Univers 09:00:00 09:00:00 [facility] 2020-10-02 2020-10-02 Outpatient [facility] [id number] Univers 08:48:30 23:59:00 [facility] 2020-10-02 2020-10-02 [facility] 1.2.840.114 [id number] Univers 08:48:30 23:59:00 Encounter [facility] 350.1.13.10 ity of Surgical 4.2.7.2.686 Luis as Specialti [phone] Ar dical es 809 [facility] 2020-10-02 2020-10-02 Office [facility] 1.2.840.114 [id number] Univers 08:40:39 09:20:15 Visit [facility] 350.1.13.10 it y of Surgical 4.2.7.2.686 Luis as Specialti [id number] Ar dical es 198 [facility] 2020-10-02 2020-10-02 Outpatient Julianna [facility] [id number] Univers 08:30:00 08:30[facility] 2020-10-02 2020-10-02 Orders Doctor WALKER 1.2.840.114 [id number] Univers 00:00:00 00:00:00 Only Unassigned, PREMA 350.1.13.10 ity of [place] [facility] 4.2.7.2.686 Luis as [phone] [address] 2020-09-30 2020-09-30 Outpatient Julianna [facility] [id number] Univers 11:15:00 11:15:00 [facility] 2020-09-16 2020-09-16 Office [facility] 1.2.840.114 [id number] Univers 11:02:47 11:17:47 Visit [facility] 350.1.13.10 it y of [place] 4.2.7.2.686 [facility] [phone] [facility] [address] [facility] 2020-09-16 2020-09-16 Outpatient Julianna [facility] [id number] Univers 10:45:00 10:45:00 BILAL ity [facility] 2020-08-21 2020-08-21 Outpatient Julianna [facility] [id number] Univers 10:00:00 10:00:00 [facility] 2020-07-31 2020-07-31 Patient [facility] 1.2.840.114 [id number] Univers 00:00:00 00:00:00 Outreach [facility] 350.1.13.10 i ty of [facility] 4.2.7.2.686 [facility] [phone] Me dical [address] 2020-04-07 2020-04-07 Telephone [facility] 1.2.370.857 [id number] Univers 00:00:00 00:00:00 Rylee S Health 350.1.13.10 it y of Surgical 4.2.7.2.686 Luis as Specialti [phone] Me dical es 198 [facility] 2020-04-07 2020-04-07 Refill [facility] 1.2.840.114 [id number] Univers 00:00:00 00:00:00 Rylee S Health 350.1.13.10 it y of Surgical 4.2.7.2.686 Luis as Specialti [phone] Ar dical es 198 [facility] 2020-03-20 2020-03-20 Office [facility] 1.2.840.114 [id number] Univers 10:06:20 10:29:18 Visit [facility] HEALTH 350.1.13.10 it y of [place] 4.2.7.2.686 [facility] [id number] [facility] [address] [facility] 2020-03-20 2020-03-20 Outpatient Julianna [facility] [id number] Univers 10:00:00 10:00:00 BILAL ity [facility] 2020-02-07 2020-02-07 Office Bernardo [facility] 1.2.840.114 [id number] Univers 10:57:19 14:49:19 Visit Room, [facility] 350.1. 13.10 ity of [place] 4.2.7.2.686 [facility] [phone] [facility] & [address] [facility] 2020-02-07 2020-02-07 Outpatient Julianna [facility] [id number] Univers 11:00:00 11:00:00 BILAL ity [facility] 2020-02-07 2020-02-07 Outpatient Julianna [facility] [id number] Univers 08:00:00 08:00:00 BILAL ity [facility] 2020-02-07 2020-02-07 Orders Doctor WALKER 1.2.840.114 [id number] Univers 00:00:00 00:00:00 Only Unassigned, PREMA 350.1.13.10 ity of [place] [facility] 4.2.7.2.686 Luis [phone] [facility] [address] 2020-01-30 2020-01-30 Outpatient Julianna [facility] [id number] Univers 16:00:00 16:00:00 BILAL ity [facility] 2020-01-30 2020-01-30 Telemedici [facility] 1.2.840.114 [id number] Univers 07:27:22 07:42:22 ne Visit Bilal SPECIALTY 350.1.13.10 ity of CARE 4.2.7.2.686 [facility] AT [phone] Ar dical VICTORY [address] [place] 2020-01-23 2020-01-23 [facility] 1.2.840.114 [id number] Univers 14:47:48 15:58:22 Visit Bilal SPECIALTY 350.1.13.10 ity of [place]2.7.2.[place] [phone] Ar dical VICTORY [address] [place] 2020-01-23 2020-01-23 Outpatient Julianna [facility] [id number] Univers 14:30:00 14:30:00 BILAL ity [facility] 2020-01-17 2020-01-17 Telephone [facility] 1.2.840.114 [id number] Univers 00:00:00 00:00:00 Sandeep C BOX WORKER 350.1.13.[address] [facility] 4.2.7.2.686 Luis as MATERNAL [phone] [facility] & CHILD [address] [place] [address] 2020-01-15 2020-01-15 Office [facility] 1.2.038.277 [id number] Univers 09:29:16 10:26:49 Visit Sandeep C BOX WORKER 350.1.13.[address] [facility] 4.2.7.2.686 Luis as MATERNAL [phone] [facility] & [address] 2020-01-15 2020-01-15 Outpatient R [facility] [id number] Univers 09:15:00 09:15:00 SANDEEP ity o f [facility] 2020-01-09 2020-01-09 Outpatient R [facility] [id number] Univers 14:45:00 14:45:00 [facility] 2020-01-01 2020-01-01 Office Bernardo [facility] 1.2.840.114 [id number] Univers 13:58:53 16:03:44 Visit Room, [facility] HEALTH 350.1. 13.10 ity [facility] 4.2.7.2.686 [facility] [id number] [facility] & [address] [facility]ty [facility] 2020-01-01 2020-01-01 Outpatient [facility] [id number] Univers 13:30:00 13:30:00 BILAL ity [facility] 2019-12-27 2019-12-27 Telemedici [facility] 1.2.840.114 [id number] Univers 12:42:34 16:35:19 ne Visit Bilal HEALTH 350.1.13.10 i ty of [place] 4.2.7.2.686 [facility] [phone] [facility] & [address] [facility] 2019-12-27 2019-12-27 Outpatient R BERNARDO [facility] [id number] Univers 15:30:00 15:30:00 BILAL ity [facility] 2019-12-26 2019-12-26 Outpatient Julianna CHANG [facility] [id number] Univers 15:30:00 15:30:00 BILAL ity [facility] 2019-12-26 2019-12-26 Telemedici [facility] 1.2.840.114 [id number] Univers 07:16:06 07:31:06 ne Visit Bilal SPECIALTY 350.1.13.10 it[place].2.[place] [phone] Ar dichortencia JONES[address] 2019-12-19 2019-12-19 Office [facility] 1.2.840.114 [id number] Univers 15:02:42 15:54:33 Visit Bilal SPECIALTY 350.1.13.10 ity of [place] 4[place]2.7.2.686 [place] AT [phone] Ar dichortencia JONES[address] 2019-12-19 2019-12-19 Outpatient Julianna [facility] [id number] Univers 14:45:00 14:45:00 BILAL ity [facility] 2019-12-19 2019-12-19 Orders Doctor AARON 1.2.840.114 [id number] Univers 00:00:00 00:00:00 Only Unassigned, PREMA 350.1.13.10 ity of [place] [facility] 4.2.7.2.686 Luis as [id number] [facility] [address] 2019-12-14 2019-12-14 Laboratory Lab, Adc Fam Pob I [facility] 1.2. 840.114 [id number] Univers 08:20:04 09:26:28 Only Nivia Martinez 350.1.13.10 ity of [place] 4.2.7.2.686 Luis as Professio [phone] Ar dichortencia [facility] [address] [employer] 2019-12-14 2019-12-14 Outpatient Julianna [facility]BL[facility] [id number] Univers 08:40:00 08:40:00 NIVIA ity of [facility] 2019-12-04 2019-12-04 Hospital [facility] 1.2.840.114 [id number] Univers 09:00:00 23:59:00 Encounter Rylee Childs 350.1.13.10 ity of [place].2.[place] [phone] [facility] [address] 2019-12-04 2019-12-04 Outpatient R ARELY [facility] [id number] Univers 00:00:00 00:00:00 RYLEE ity of [facility] 2019-12-04 2019-12-04 Orders Doctor AARON 1.2.840.114 [id number] Univers 00:00:00 00:00:00 Only Unassigned, PREMA 350.1.13.10 ity of [place] [facility] 4.2.7.2.686 Luis as [id number] [facility] [address] 2019-11-22 2019-11-22 Telephone [facility] 1.2.480.497 [id number] Univers 00:00:00 00:00:00 Kira Childs 350.1.13.10 ity of [place].2.7.2.686 [place] [phone] [address] 2019-11-22 2019-11-22 Telephone [facility] 1.2.795.714 [id number] Univers 00:00:00 00:00:00 Kira Childs 350.1.13.10 ity of [place].2.7.2.686 [place] [phone] [address] 2019-11-20 2019-11-20 Office [facility] 1.2.840.114 [id number] Univers 09:33:18 13:12:40 Visit Kira Childs 350.1.13.10 ity of [place] 4.2.7.2.686 [place] [phone] [address] 2019-11-20 2019-11-20 Outpatient [facility] [id number] Univers 09:30:00 09:30:00 KIRA ity [facility] 2019-11-13 2019-11-13 [facility] 1.2.840.114 [id number] Univers 12:30:00 23:59:00 Encounter Rylee Childs 350.1.13.10 ity of [place] 4.2.7.2.686 [facility] [phone] [facility] [address] 2019-11-13 2019-11-13 Outpatient [facility] [id number] Univers 00:00:00 00:00:00 RYLEE ity [facility] 2019-11-13 2019-11-13 Telephone [facility] 1.2.840.114 [id number] Univers 00:00:00 00:00:00 [facility] 350.1.13.10 it y of Surgical 4.2.7.2.686 Luis as Specialti [phone] Ar zoeal es 198 [facility] 2019-11-09 2019-11-09 Office [facility] 1.2.874.739 [id number] Univers 09:10:36 10:08:08 Visit Sandeep Monet BOX WORKER 350.1.13.[address] [facility] 4.2.7.2.686 Luis as MATERNAL [phone] Med ical & CHILD [address] [place] [address] 2019-11-09 2019-11-09 Outpatient R LAVERNE [facility] [id number] Univers 09:00:00 09:00:00 SANDEEP gan o f [facility] 2019-11-03 2019-11-03 Refill [facility] 1.2.840.114 [id number] Univers 00:00:00 00:00:00 Rylee [facility] 350.1.13.10 it y of Surgical 4.2.7.2.686 Luis as Specialti [phone] Ar dical es 198 [facility] 2019-10-30 2019-10-30 Outpatient [facility] [id number] Univers 10:47:17 23:59:00 [facility] 2019-10-30 2019-10-30 [facility] 1.2.840.114 [id number] Univers 10:47:00 23:59:00 Encounter [facility] 350.1.13.10 ity of Surgical 4.2.7.2.686 Luis as Specialti [phone] Me dical es 809 [facility] 2019-10-30 2019-10-30 Office Arely [facility] 1.2.840.114 [id number] Univers 10:37:29 11:32:33 Visit Rylee [facility] 350.1.13.10 it y of Surgical 4.2.7.2.686 Luis as Specialti [id number] Me dical es 198 [facility] 2019-10-30 2019-10-30 Outpatient R ARELY [facility] [id number] Univers 08:00:00 08:00:00 [facility] 2019-10-09 2019-10-09 Telephone Maximilian [facility] 1.2.840.114 [id number] Univers 00:00:00 00:00:00 [facility] 350.1.13.10 it y of [place] 4.2.7.2.686 Luis as Professio [phone] [facility] nal 044 [facility] 2019-10-08 2019-10-08 Urgent Pob1, Acute Care Clinic [facility] 1. 2.840.114 [id number] Univers 12:05:01 12:25:01 Care Danemnbertin [facility] 350.1.13.10 ity of [place] 4.2.7.2.686 Luis as Professio [phone] [facility] nal 044 [facility] 2019-10-08 2019-10-08 Outpatient R MAXIMILIAN [facility] [id number] Univers 12:00:00 12:00:00 [facility] 2019-09-24 2019-09-24 Telephone [facility] 1.2.840.114 [id number] Univers 00:00:00 00:00:00 Sandeep Monet BOX WORKER 350.1.13.10 ity of REGIONAL 4.2.7.2.686 Luis as MATERNAL [phone] Med ical & CHILD 107 [facility] 2019-09-24 2019-09-24 Refill Arely [facility] 1.2.840.114 [id number] Univers 00:00:00 00:00:00 [facility] Health 350.1.13.10 it y of Surgical 4.2.7.2.686 Luis as Specialti [phone] Me dical es 198 [facility] 2019-09-21 2019-09-21 Office [facility] 1.2.451.052 [id number] Univers 14:40:52 14:55:52 Visit Sandeep Monet BOX WORKER 350.1.13.10 ity of REGIONAL 4.2.7.2.686 Luis as MATERNAL [phone] Med ical & CHILD 107 [facility] 2019-09-21 2019-09-21 Outpatient [facility] [id number] Univers 14:15:00 14:15:00 SANDEEP gan o f [facility] 2019-09-06 2019-09-06 Telephone [facility] 1.2.551.012 [id number] Univers 00:00:00 00:00:00 [facility] 350.1.13.10 it y of Surgical 4.2.7.2.686 Luis as Specialti [phone] Ar dical es 198 [facility] 2019-09-06 2019-09-06 Letter [facility] 1.2.840.114 [id number] Univers 00:00:00 00:00:00 (Out) [facility] Health 350.1.13.10 it y of Surgical 4.2.7.2.686 Luis as Specialti [phone] Ar dical es 198 [facility] 2019-08-29 2019-08-29 Outpatient [facility] [id number] Univers 14:15:00 14:15:00 RYLEE ity [facility] 2019-08-29 2019-08-29 Telemedici [facility] 1.2.840.114 [id number] Univers 08:05:56 08:20:56 ne Visit [facility] 350.1.13.10 i ty of Surgical 4.2.7.2.686 Luis as Specialti [phone] Ar dical es 198 [facility] Results Test Description Test Time Test Comments Results Result Comments Source POCT TEST 2022-08-01 16:05:00 Test Item Value Reference Range Interpretation Comme nts POCT PREG (test code = 1605) neg On board controls acceptable with C Line (test code = 3574) present POCT PREG LOT # (test code = 3575) [id number] POCT PREG TEST DATE (test code = 3576) 04/14/2023 Lab Interpretation (test code = 04107-8) [facility] Test Item Value Reference Range Interpretation Comments Segs (test code = Segs) 40.2 [id number] 14:56:00 Test Item Value Reference Range Interpretation Comments Lymphocytes (test code = Lymphocytes) 45.8 [place] 386422-05-09 14:56:00 Test Item Value Reference Range Interpretation Comments Monocytes (test code = Monocytes) 8.5 [place] 386422-05-09 14:56:00 Test Item Value Reference Range Interpretation Comments Eosinophils (test code = Eosinophils) 4.0 [facility]ABIM[facility]IMS1389[facility]53-27 14:56:00 Test Item Value Reference Range Interpretation Comments Basophils (test code = Basophils) 1.5 [facility]MrgrtfoRHZAMVVVAK8507-13-23 14:56:00 Test Item Value Reference Range Interpretation Comments Sed Rate (test code = Sed Rate) [facility]2022-05-09 14:56:00 Test Item Value Reference Range Interpretation Comments Vitamin B12 Lvl (test code = Vitamin 840 233-5537 B12 Lvl) [facility]2022-05-09 14:56:00 Test Item Value Reference Range Interpretation Comments Glucose Lvl (test code = Glucose Lvl) 80 65-99 [facility]2022-05-09 14:56:00 Test Item Value Reference Range Interpretation Comments BUN (test code = BUN) 10 7-25 [place] 134462-05-09 14:56:00 Test Item Value Reference Range Interpretation Comments Creatinine Lvl (test code = Creatinine 0.80 0.50-1.10 Lvl) [place] 134462-05-09 14:56:00 Test Item Value Reference Range Interpretation Comments eGFR NON-AFR. ALBANIAN (test code = 92 eGFR NON-AFR. ALBANIAN) [facility]2022-05-09 14:56:00 Test Item Value Reference Range Interpretation Comments eGFR (test code = eGFR 106 ) [place] 134462-05-09 14:56:00 Test Item Value Reference Range Interpretation Comments B/C Ratio (test code = B/C NOT APPLICABLE 622 Ratio) [place] [address]-05-09 14:56:00 Test Item Value Reference Range Interpretation Comments Sodium Lvl (test code = Sodium Lvl) 137 135-146 [place] 134462-05-09 14:56:00 Test Item Value Reference Range Interpretation Comments Potassium Lvl (test code = Potassium 4.0 3.5-5.3 Lvl) [place] 134462-05-09 14:56:00 Test Item Value Reference Range Interpretation Comments Chloride Lvl (test code = Chloride Lvl) 107 98-110 [place] 134462-05-09 14:56:00 Test Item Value Reference Range Interpretation Comments CO2 (test code = CO2) 25 20-32 [place] 134462-05-09 14:56:00 Test Item Value Reference Range Interpretation Comments Calcium Lvl (test code = Calcium Lvl) 9.0 8.6-10.2 [place] 134462-05-09 14:56:00 Test Item Value Reference Range Interpretation Comments Total Protein (test code = Total 7.1 6.1-8.1 Protein) [place] 134462-05-09 14:56:00 Test Item Value Reference Range Interpretation Comments Albumin Lvl (test code = Albumin Lvl) 4.1 3.6-5.1 [place] 134462-05-09 14:56:00 Test Item Value Reference Range Interpretation Comments Globulin (test code = Globulin) 3.0 1.9-3.7 [place] 134462-05-09 14:56:00 Test Item Value Reference Range Interpretation Comments A/G Ratio (test code = A/G Ratio) 1.4 1.0-2.5 [place] 134462-05-09 14:56:00 Test Item Value Reference Range Interpretation Comments Bili Total (test code = Bili Total) 0.5 0.2-1.2 [place] 134462-05-09 14:56:00 Test Item Value Reference Range Interpretation Comments Alk Phos (test code = Alk Phos) 58 31-125 [facility]2022-05-09 14:56:00 Test Item Value Reference Range Interpretation Comments ASPARTATE TRANSAMINASE (test code = 16 10-30 ASPARTATE TRANSAMINASE) [facility]2022-05-09 14:56:00 Test Item Value Reference Range Interpretation Comments ALANINE AMINOTRANSFERASE (test code = 11 6-29 ALANINE AMINOTRANSFERASE) [place] [address]-05-09 14:56:00 Test Item Value Reference Range Interpretation Comments WBC X 10x3 (test code = WBC X 10x3) 4.7 3.8-10.8 [place] 386422-05-09 14:56:00 Test Item Value Reference Range Interpretation Comments RBC X 10x6 (test code = RBC X 10x6) 4.50 3.80-5.10 [place] [address]-05-09 14:56:00 Test Item Value Reference Range Interpretation Comments Hgb (test code = Hgb) 11.3 11.7-15.5 [place] [address]-05-09 14:56:00 Test Item Value Reference Range Interpretation Comments Hct (test code = Hct) 36.2 35.0-45.0 [place] [address]-05-09 14:56:00 Test Item Value Reference Range Interpretation Comments MCV (test code = MCV) 80.4 80.0-100.0 [place] [address]-05-09 14:56:00 Test Item Value Reference Range Interpretation Comments MCH (test code = MCH) 25.1 pg 27.0-33.0 [place] [address]-05-09 14:56:00 Test Item Value Reference Range Interpretation Comments MCHC (test code = MCHC) 31.2 32.0-36.0 [place] [address]-05-09 14:56:00 Test Item Value Reference Range Interpretation Comments RDW (test code = RDW) 13.9 11.0-15.0 [place] [address]-05-09 14:56:00 Test Item Value Reference Range Interpretation Comments Platelet (test code = Platelet) 249 140-400 [place] 386422-05-09 14:56:00 Test Item Value Reference Range Interpretation Comments MPV (test code = MPV) 11.4 7.5-12.5 [facility]IhceeyqAOTMKDOCIX0481-03-93 14:56:00 Test Item Value Reference Range Interpretation Comments Neutrophils # (test code = Neutrophils 1889 4943-8078 #) [facility] CenterMixolzqVHXRWEYZLZ7590-18-33 14:56:00 Test Item Value Reference Range Interpretation Comments Lymphocytes # (test code = Lymphocytes 2153 850-3900 #) [facility] CenterBmzuqikEMRVMSNROZ7495-04-38 14:56:00 Test Item Value Reference Range Interpretation Comments Monocytes # (test code = Monocytes #) 400 200-950 [facility] CenterIrqjgfiPXXVHDHMLU1182-35-19 14:56:00 Test Item Value Reference Range Interpretation Comments Eosinophils # (test code = Eosinophils 188 15-500 #) [facility] CenterTnzbmarFIDKMPWARH5122-78-20 14:56:00 Test Item Value Reference Range Interpretation Comments Basophils # (test code 71 See_Comment [Aut omated message] The = Basophils #) system which generated this result tra nsmitted reference range : <=200. The reference r kailee was not used to int erpret this result as normal/abnormal . [facility] CenterUolseddZTHNMCKKXP3472-64-67 14:56:00 Test Item Value Reference Range Interpretation Comments Segs (test code = Segs) 40.2 [facility] CenterUvnwkbkREYGVJBIAM1378-30-94 14:56:00 Test Item Value Reference Range Interpretation Comments Lymphocytes (test code = Lymphocytes) 45.8 [facility] CenterZppyrmpNRMCYCSWAB5318-62-03 14:56:00 Test Item Value Reference Range Interpretation Comments Monocytes (test code = Monocytes) 8.5 [facility] CenterJogllxyLNVVGSJTAP6552-19-66 14:56:00 Test Item Value Reference Range Interpretation Comments Eosinophils (test code = Eosinophils) 4.0 [facility] CenterRgckuixAVILBIDJLA9192-54-20 14:56:00 Test Item Value Reference Range Interpretation Comments Basophils (test code = Basophils) 1.5 [facility] CenterSdazaavVFMPGNIBBH8504-48-07 14:56:00 Test Item Value Reference Range Interpretation Comments Sed Rate (test code = Sed Rate) [facility]2022-05-09 14:56:00 Test Item Value Reference Range Interpretation Comments Vitamin B12 Lvl (test code = Vitamin 094 505-5700 B12 Lvl) [facility]2022-05-09 14:56:00 Test Item Value Reference Range Interpretation Comments Glucose Lvl (test code = Glucose Lvl) 80 65-99 [place] 134462-05-09 14:56:00 Test Item Value Reference Range Interpretation Comments BUN (test code = BUN) 10 7-25 [place] 134462-05-09 14:56:00 Test Item Value Reference Range Interpretation Comments Creatinine Lvl (test code = Creatinine 0.80 0.50-1.10 Lvl) [place] 134462-05-09 14:56:00 Test Item Value Reference Range Interpretation Comments eGFR NON-AFR. ALBANIAN (test code = 92 eGFR NON-AFR. ALBANIAN) [place] 134462-05-09 14:56:00 Test Item Value Reference Range Interpretation Comments eGFR (test code = eGFR 106 ) [place] 134462-05-09 14:56:00 Test Item Value Reference Range Interpretation Comments B/C Ratio (test code = B/C NOT APPLICABLE 6-22 Ratio) [place] 134462-05-09 14:56:00 Test Item Value Reference Range Interpretation Comments Sodium Lvl (test code = Sodium Lvl) 137 135-146 [place] 134462-05-09 14:56:00 Test Item Value Reference Range Interpretation Comments Potassium Lvl (test code = Potassium 4.0 3.5-5.3 Lvl) [place] 134462-05-09 14:56:00 Test Item Value Reference Range Interpretation Comments Chloride Lvl (test code = Chloride Lvl) 107 98-110 [place] 134462-05-09 14:56:00 Test Item Value Reference Range Interpretation Comments CO2 (test code = CO2) 25 20-32 [place] 134462-05-09 14:56:00 Test Item Value Reference Range Interpretation Comments Calcium Lvl (test code = Calcium Lvl) 9.0 8.6-10.2 [place] 134462-05-09 14:56:00 Test Item Value Reference Range Interpretation Comments Total Protein (test code = Total 7.1 6.1-8.1 Protein) [place] 134462-05-09 14:56:00 Test Item Value Reference Range Interpretation Comments Albumin Lvl (test code = Albumin Lvl) 4.1 3.6-5.1 [place] 134462-05-09 14:56:00 Test Item Value Reference Range Interpretation Comments Globulin (test code = Globulin) 3.0 1.9-3.7 [place] 134462-05-09 14:56:00 Test Item Value Reference Range Interpretation Comments A/G Ratio (test code = A/G Ratio) 1.4 1.0-2.5 [place] 134462-05-09 14:56:00 Test Item Value Reference Range Interpretation Comments Bili Total (test code = Bili Total) 0.5 0.2-1.2 [facility]2022-05-09 14:56:00 Test Item Value Reference Range Interpretation Comments Vitamin B12 Lvl (test code = Vitamin 638 162-2742 B12 Lvl) [place] 134462-05-09 14:56:00 Test Item Value Reference Range Interpretation Comments Glucose Lvl (test code = Glucose Lvl) 80 65-99 [place] 134462-05-09 14:56:00 Test Item Value Reference Range Interpretation Comments Alk Phos (test code = Alk Phos) 58 31-125 [place] 134462-05-09 14:56:00 Test Item Value Reference Range Interpretation Comments BUN (test code = BUN) 10 7-25 [place] [address]-05-09 14:56:00 Test Item Value Reference Range Interpretation Comments Creatinine Lvl (test code = Creatinine 0.80 0.50-1.10 Lvl) [place] 134462-05-09 14:56:00 Test Item Value Reference Range Interpretation Comments eGFR NON-AFR. ALBANIAN (test code = 92 eGFR NON-AFR. ALBANIAN) [place] 134462-05-09 14:56:00 Test Item Value Reference Range Interpretation Comments eGFR (test code = eGFR 106 ) [place] 134462-05-09 14:56:00 Test Item Value Reference Range Interpretation Comments B/C Ratio (test code = B/C NOT APPLICABLE 6-22 Ratio) [place] 134462-05-09 14:56:00 Test Item Value Reference Range Interpretation Comments Sodium Lvl (test code = Sodium Lvl) 137 135-146 [place] 134462-05-09 14:56:00 Test Item Value Reference Range Interpretation Comments Potassium Lvl (test code = Potassium 4.0 3.5-5.3 Lvl) [facility]2022-05-09 14:56:00 Test Item Value Reference Range Interpretation Comments Chloride Lvl (test code = Chloride Lvl) 107 98-110 [facility]2022-05-09 14:56:00 Test Item Value Reference Range Interpretation Comments CO2 (test code = CO2) 25 20-32 [place] 134462-05-09 14:56:00 Test Item Value Reference Range Interpretation Comments Calcium Lvl (test code = Calcium Lvl) 9.0 8.6-10.2 [place] 134462-05-09 14:56:00 Test Item Value Reference Range Interpretation Comments ASPARTATE TRANSAMINASE (test code = 16 10-30 ASPARTATE TRANSAMINASE) [place] 134462-05-09 14:56:00 Test Item Value Reference Range Interpretation Comments Total Protein (test code = Total 7.1 6.1-8.1 Protein) [place] 134462-05-09 14:56:00 Test Item Value Reference Range Interpretation Comments Albumin Lvl (test code = Albumin Lvl) 4.1 3.6-5.1 [facility]2022-05-09 14:56:00 Test Item Value Reference Range Interpretation Comments Globulin (test code = Globulin) 3.0 1.9-3.7 [place] 134462-05-09 14:56:00 Test Item Value Reference Range Interpretation Comments A/G Ratio (test code = A/G Ratio) 1.4 1.0-2.5 [place] 134462-05-09 14:56:00 Test Item Value Reference Range Interpretation Comments Bili Total (test code = Bili Total) 0.5 0.2-1.2 [place] 134462-05-09 14:56:00 Test Item Value Reference Range Interpretation Comments Alk Phos (test code = Alk Phos) 58 31-125 [place] 134462-05-09 14:56:00 Test Item Value Reference Range Interpretation Comments ASPARTATE TRANSAMINASE (test code = 16 10-30 ASPARTATE TRANSAMINASE) [facility]2022-05-09 14:56:00 Test Item Value Reference Range Interpretation Comments ALANINE AMINOTRANSFERASE (test code = 11 6-29 ALANINE AMINOTRANSFERASE) [facility]ZFNNOJFLFQ5941[facility]61-97 14:56:00 Test Item Value Reference Range Interpretation Comments WBC X 10x3 (test code = WBC X 10x3) 4.7 3.8-10.8 [place] [address]-05-09 14:56:00 Test Item Value Reference Range Interpretation Comments RBC X 10x6 (test code = RBC X 10x6) 4.50 3.80-5.10 [facility]2022-05-09 14:56:00 Test Item Value Reference Range Interpretation Comments ALANINE AMINOTRANSFERASE (test code = 11 6-29 ALANINE AMINOTRANSFERASE) [facility] CenterNthxsprBONUIXZQYH6022-27-91 14:56:00 Test Item Value Reference Range Interpretation Comments Hgb (test code = Hgb) 11.3 11.7-15.5 [place] [address]-05-09 14:56:00 Test Item Value Reference Range Interpretation Comments Hct (test code = Hct) 36.2 35.0-45.0 [place] 386422-05-09 14:56:00 Test Item Value Reference Range Interpretation Comments MCV (test code = MCV) 80.4 80.0-100.0 [facility] CenterFbnifdtVSHDZUIOZZ0891-00-08 14:56:00 Test Item Value Reference Range Interpretation Comments MCH (test code = MCH) 25.1 pg 27.0-33.0 [place] 386422-05-09 14:56:00 Test Item Value Reference Range Interpretation Comments MCHC (test code = MCHC) 31.2 32.0-36.0 [place] 386422-05-09 14:56:00 Test Item Value Reference Range Interpretation Comments RDW (test code = RDW) 13.9 11.0-15.0 [place] [address]-05-09 14:56:00 Test Item Value Reference Range Interpretation Comments Platelet (test code = Platelet) 249 140-400 [place] 386422-05-09 14:56:00 Test Item Value Reference Range Interpretation Comments MPV (test code = MPV) 11.4 7.5-12.5 [place] 386422-05-09 14:56:00 Test Item Value Reference Range Interpretation Comments Neutrophils # (test code = Neutrophils 1889 8440-7330 #) [facility] CenterOqrqnzxGABQQCLLRX4010-37-95 14:56:00 Test Item Value Reference Range Interpretation Comments Lymphocytes # (test code = Lymphocytes 2153 850-3900 #) [facility]2022-05-09 14:56:00 Test Item Value Reference Range Interpretation Comments Vitamin B12 Lvl (test code = Vitamin 070 748-6623 B12 Lvl) [facility] CenterErgecppCROXSQTRCN6721-57-16 14:56:00 Test Item Value Reference Range Interpretation Comments Monocytes # (test code = Monocytes #) 400 200-950 [facility] CenterLyldwvwWDUECDPSII6417-72-67 14:56:00 Test Item Value Reference Range Interpretation Comments Eosinophils # (test code = Eosinophils 188 15-500 #) [facility] CenterFcwcmjyHLVWPNNQHO7687-43-59 14:56:00 Test Item Value Reference Range Interpretation Comments Basophils # (test code 71 See_Comment [Aut omated message] The = Basophils #) system which generated this result tra nsmitted reference range : <=200. The reference r kailee was not used to int erpret this result as normal/abnormal . [facility] CenterZbwcdypSMOBMCPWTS1698-80-73 14:56:00 Test Item Value Reference Range Interpretation Comments Segs (test code = Segs) 40.2 [place] 386422-05-09 14:56:00 Test Item Value Reference Range Interpretation Comments Lymphocytes (test code = Lymphocytes) 45.8 [place] 386422-05-09 14:56:00 Test Item Value Reference Range Interpretation Comments Monocytes (test code = Monocytes) 8.5 [facility] CenterMotozlzCPLUROIWTK0125-24-59 14:56:00 Test Item Value Reference Range Interpretation Comments Eosinophils (test code = Eosinophils) 4.0 [facility] CenterCrustcmPSGWKNMTPP6996-92-78 14:56:00 Test Item Value Reference Range Interpretation Comments Basophils (test code = Basophils) 1.5 [place] [address]-05-09 14:56:00 Test Item Value Reference Range Interpretation Comments Sed Rate (test code = Sed Rate) TNP [facility] CenterXqybegzKFNZYIERXP1958-86-71 14:56:00 Test Item Value Reference Range Interpretation Comments WBC X 10x3 (test code = WBC X 10x3) 4.7 3.8-10.8 [place] [address]-05-09 14:56:00 Test Item Value Reference Range Interpretation Comments RBC X 10x6 (test code = RBC X 10x6) 4.50 3.80-5.10 [place] [address]-05-09 14:56:00 Test Item Value Reference Range Interpretation Comments Hgb (test code = Hgb) 11.3 11.7-15.5 [place] 386422-05-09 14:56:00 Test Item Value Reference Range Interpretation Comments Hct (test code = Hct) 36.2 35.0-45.0 [facility] CenterBhftjamEGZASAXTMA0198-73-02 14:56:00 Test Item Value Reference Range Interpretation Comments MCV (test code = MCV) 80.4 80.0-100.0 [facility] CenterSldwvlhQUPXXMBEHV9597-59-73 14:56:00 Test Item Value Reference Range Interpretation Comments MCH (test code = MCH) 25.1 pg 27.0-33.0 [facility] CenterAwctfypWFNYHPNDQN9489-38-09 14:56:00 Test Item Value Reference Range Interpretation Comments MCHC (test code = MCHC) 31.2 32.0-36.0 [place] 386422-05-09 14:56:00 Test Item Value Reference Range Interpretation Comments RDW (test code = RDW) 13.9 11.0-15.0 [facility] CenterWjenkohLGGCNBVKPK7440-66-77 14:56:00 Test Item Value Reference Range Interpretation Comments Platelet (test code = Platelet) 249 140-400 [facility] CenterYvikzlhFMOPVDMIRM4329-12-97 14:56:00 Test Item Value Reference Range Interpretation Comments MPV (test code = MPV) 11.4 7.5-12.5 [facility]2022-05-09 14:56:00 Test Item Value Reference Range Interpretation Comments Glucose Lvl (test code = Glucose Lvl) 80 65-99 [facility] CenterFpxpilxKYMEXSKXVT8428-15-89 14:56:00 Test Item Value Reference Range Interpretation Comments Neutrophils # (test code = Neutrophils 1889 6343-7874 #) [facility] CenterYpacwfcYWWRXYEPJT3355-50-25 14:56:00 Test Item Value Reference Range Interpretation Comments Lymphocytes # (test code = Lymphocytes 2153 850-3900 #) [facility] CenterWmdipueDBOPJQVLZH0292-49-25 14:56:00 Test Item Value Reference Range Interpretation Comments Monocytes # (test code = Monocytes #) 400 200-950 [facility] CenterBbrevqbNJSHCYGKSX1026-08-84 14:56:00 Test Item Value Reference Range Interpretation Comments Eosinophils # (test code = Eosinophils 188 15-500 #) [facility] CenterVtqxaaeVGLGZWMPKI4857-90-40 14:56:00 Test Item Value Reference Range Interpretation Comments Basophils # (test code 71 See_Comment [Aut omated message] The = Basophils #) system which generated this result tra nsmitted reference range : <=200. The reference r kailee was not used to int erpret this result as normal/abnormal . [facility] CenterKadepjuYOYYKLKZFG2493-04-39 14:56:00 Test Item Value Reference Range Interpretation Comments Segs (test code = Segs) 40.2 [place] 386422-05-09 14:56:00 Test Item Value Reference Range Interpretation Comments Lymphocytes (test code = Lymphocytes) 45.8 [place] 386422-05-09 14:56:00 Test Item Value Reference Range Interpretation Comments Monocytes (test code = Monocytes) 8.5 [place] [address]-05-09 14:56:00 Test Item Value Reference Range Interpretation Comments Eosinophils (test code = Eosinophils) 4.0 [place] 386422-05-09 14:56:00 Test Item Value Reference Range Interpretation Comments Basophils (test code = Basophils) 1.5 [facility]2022-05-09 14:56:00 Test Item Value Reference Range Interpretation Comments BUN (test code = BUN) 10 12-07 [facility] CenterQnedpjrYAZFNSAXAX6255-02-43 14:56:00 Test Item Value Reference Range Interpretation Comments Sed Rate (test code = Sed Rate) [facility]2022-05-09 14:56:00 Test Item Value Reference Range Interpretation Comments Vitamin B12 Lvl (test code = Vitamin 653 192-4924 B12 Lvl) [facility]2022-05-09 14:56:00 Test Item Value Reference Range Interpretation Comments Glucose Lvl (test code = Glucose Lvl) 80 65-99 [facility]2022-05-09 14:56:00 Test Item Value Reference Range Interpretation Comments BUN (test code = BUN) 12-07 [facility]2022-05-09 14:56:00 Test Item Value Reference Range Interpretation Comments Creatinine Lvl (test code = Creatinine 0.80 0.50-1.10 Lvl) [facility]2022-05-09 14:56:00 Test Item Value Reference Range Interpretation Comments eGFR NON-AFR. ALBANIAN (test code = 92 eGFR NON-AFR. ALBANIAN) [place] 134462-05-09 14:56:00 Test Item Value Reference Range Interpretation Comments Creatinine Lvl (test code = Creatinine 0.80 0.50-1.10 Lvl) [place] 134462-05-09 14:56:00 Test Item Value Reference Range Interpretation Comments eGFR (test code = eGFR 106 ) [place] 134462-05-09 14:56:00 Test Item Value Reference Range Interpretation Comments B/C Ratio (test code = B/C NOT APPLICABLE 6-22 Ratio) [place] 134462-05-09 14:56:00 Test Item Value Reference Range Interpretation Comments Sodium Lvl (test code = Sodium Lvl) 137 135-146 [place] 134462-05-09 14:56:00 Test Item Value Reference Range Interpretation Comments Potassium Lvl (test code = Potassium 4.0 3.5-5.3 Lvl) [place] 134462-05-09 14:56:00 Test Item Value Reference Range Interpretation Comments Chloride Lvl (test code = Chloride Lvl) 107 98-110 [place] 134462-05-09 14:56:00 Test Item Value Reference Range Interpretation Comments CO2 (test code = CO2) 25 20-32 [place] 134462-05-09 14:56:00 Test Item Value Reference Range Interpretation Comments Calcium Lvl (test code = Calcium Lvl) 9.0 8.6-10.2 [place] 134462-05-09 14:56:00 Test Item Value Reference Range Interpretation Comments Total Protein (test code = Total 7.1 6.1-8.1 Protein) [place] 134462-05-09 14:56:00 Test Item Value Reference Range Interpretation Comments Albumin Lvl (test code = Albumin Lvl) 4.1 3.6-5.1 [place] 134462-05-09 14:56:00 Test Item Value Reference Range Interpretation Comments Globulin (test code = Globulin) 3.0 1.9-3.7 [place] 134462-05-09 14:56:00 Test Item Value Reference Range Interpretation Comments eGFR NON-AFR. ALBANIAN (test code = 92 eGFR NON-AFR. ALBANIAN) [facility]2022-05-09 14:56:00 Test Item Value Reference Range Interpretation Comments A/G Ratio (test code = A/G Ratio) 1.4 1.0-2.5 [place] 134462-05-09 14:56:00 Test Item Value Reference Range Interpretation Comments Bili Total (test code = Bili Total) 0.5 0.2-1.2 [place] 134462-05-09 14:56:00 Test Item Value Reference Range Interpretation Comments Alk Phos (test code = Alk Phos) 58 31-125 [place] [address]-05-09 14:56:00 Test Item Value Reference Range Interpretation Comments ASPARTATE TRANSAMINASE (test code = 16 10-30 ASPARTATE TRANSAMINASE) [place] [address]-05-09 14:56:00 Test Item Value Reference Range Interpretation Comments ALANINE AMINOTRANSFERASE (test code = 11 6-29 ALANINE AMINOTRANSFERASE) [place] [address]-05-09 14:56:00 Test Item Value Reference Range Interpretation Comments WBC X 10x3 (test code = WBC X 10x3) 4.7 3.8-10.8 [place] 386422-05-09 14:56:00 Test Item Value Reference Range Interpretation Comments RBC X 10x6 (test code = RBC X 10x6) 4.50 3.80-5.10 [place] [address]-05-09 14:56:00 Test Item Value Reference Range Interpretation Comments Hgb (test code = Hgb) 11.3 11.7-15.5 [place] [address]-05-09 14:56:00 Test Item Value Reference Range Interpretation Comments Hct (test code = Hct) 36.2 35.0-45.0 [place] [address]-05-09 14:56:00 Test Item Value Reference Range Interpretation Comments MCV (test code = MCV) 80.4 80.0-100.0 [place] 134462-05-09 14:56:00 Test Item Value Reference Range Interpretation Comments eGFR (test code = eGFR 106 ) [place] [address]-05-09 14:56:00 Test Item Value Reference Range Interpretation Comments MCH (test code = MCH) 25.1 pg 27.0-33.0 [place] 386422-05-09 14:56:00 Test Item Value Reference Range Interpretation Comments MCHC (test code = MCHC) 31.2 32.0-36.0 [facility] CenterZyepmtoXPLMKMZBMQ2144-08-52 14:56:00 Test Item Value Reference Range Interpretation Comments RDW (test code = RDW) 13.9 11.0-15.0 [place] 386422-05-09 14:56:00 Test Item Value Reference Range Interpretation Comments Platelet (test code = Platelet) 249 140-400 [facility] CenterZgbznjfOKKXMBAELL4679-90-00 14:56:00 Test Item Value Reference Range Interpretation Comments MPV (test code = MPV) 11.4 7.5-12.5 [place] [place]64[place] 14:56:00 Test Item Value Reference Range Interpretation Comments Neutrophils # (test code = Neutrophils 1889 1640-2185 #) [facility] CenterRwmfexcLXBFKQFBJX4799-28-61 14:56:00 Test Item Value Reference Range Interpretation Comments Lymphocytes # (test code = Lymphocytes 2153 850-3900 #) [facility] CenterXchcokmYDZYHEQUQI1377-69-53 14:56:00 Test Item Value Reference Range Interpretation Comments Monocytes # (test code = Monocytes #) 400 200-950 [place] 386422-05-09 14:56:00 Test Item Value Reference Range Interpretation Comments Eosinophils # (test code = Eosinophils 188 15-500 #) [facility] CenterQmaskhmEEMELEABTO1203-24-90 14:56:00 Test Item Value Reference Range Interpretation Comments Basophils # (test code 71 See_Comment [Aut omated message] The = Basophils #) system which generated this result tra nsmitted reference range : <=200. The reference r kailee was not used to int erpret this result as normal/abnormal . [facility] [id number] 14:56:00 Test Item Value Reference Range Interpretation Comments B/C Ratio (test code = B/C NOT APPLICABLE 6-22 Ratio) [place] 386422-[place]-09 14:56:00 Test Item Value Reference Range Interpretation Comments Segs (test code = Segs) 40.2 [place] 386422-05-09 14:56:00 Test Item Value Reference Range Interpretation Comments Lymphocytes (test code = Lymphocytes) 45.[address]05-09 14:56:00 Test Item Value Reference Range Interpretation Comments Monocytes (test code = Monocytes) 8.5 [place] [address]-05-09 14:56:00 Test Item Value Reference Range Interpretation Comments Eosinophils (test code = Eosinophils) 4.0 [place] [address]-05-09 14:56:00 Test Item Value Reference Range Interpretation Comments Basophils (test code = Basophils) 1.5 [place] [address]-05-09 14:56:00 Test Item Value Reference Range Interpretation Comments Sed Rate (test code = Sed Rate) TNP [place] 134462-05-09 14:56:00 Test Item Value Reference Range Interpretation Comments Sodium Lvl (test code = Sodium Lvl) 137 135-146 [facility]2022-05-09 14:56:00 Test Item Value Reference Range Interpretation Comments Vitamin B12 Lvl (test code = Vitamin 666 079-3796 B12 Lvl) [place] 134462-05-09 14:56:00 Test Item Value Reference Range Interpretation Comments Glucose Lvl (test code = Glucose Lvl) 80 65-99 [place] 134462-05-09 14:56:00 Test Item Value Reference Range Interpretation Comments BUN (test code = BUN) 10 7-25 [place] 134462-05-09 14:56:00 Test Item Value Reference Range Interpretation Comments Creatinine Lvl (test code = Creatinine 0.80 0.50-1.10 Lvl) [place] 134462-05-09 14:56:00 Test Item Value Reference Range Interpretation Comments eGFR NON-AFR. ALBANIAN (test code = 92 eGFR NON-AFR. ALBANIAN) [place] 134462-05-09 14:56:00 Test Item Value Reference Range Interpretation Comments eGFR (test code = eGFR 106 ) [place] 134462-05-09 14:56:00 Test Item Value Reference Range Interpretation Comments B/C Ratio (test code = B/C NOT APPLICABLE 6-22 Ratio) [place] 134462-05-09 14:56:00 Test Item Value Reference Range Interpretation Comments Sodium Lvl (test code = Sodium Lvl) 137 135-146 [place] 134462-05-09 14:56:00 Test Item Value Reference Range Interpretation Comments Potassium Lvl (test code = Potassium 4.0 3.5-5.3 Lvl) [place] 134462-05-09 14:56:00 Test Item Value Reference Range Interpretation Comments Chloride Lvl (test code = Chloride Lvl) 107 98-110 [place] [address]-05-09 14:56:00 Test Item Value Reference Range Interpretation Comments Potassium Lvl (test code = Potassium 4.0 3.5-5.3 Lvl) [place] 134462-05-09 14:56:00 Test Item Value Reference Range Interpretation Comments CO2 (test code = CO2) 25 20-32 [place] 134462-05-09 14:56:00 Test Item Value Reference Range Interpretation Comments Calcium Lvl (test code = Calcium Lvl) 9.0 8.6-10.2 [place] [address]-05-09 14:56:00 Test Item Value Reference Range Interpretation Comments Total Protein (test code = Total 7.1 6.1-8.1 Protein) [place] 134462-05-09 14:56:00 Test Item Value Reference Range Interpretation Comments Albumin Lvl (test code = Albumin Lvl) 4.1 3.6-5.1 [place] 134462-05-09 14:56:00 Test Item Value Reference Range Interpretation Comments Globulin (test code = Globulin) 3.0 1.9-3.7 [place] [address]-05-09 14:56:00 Test Item Value Reference Range Interpretation Comments A/G Ratio (test code = A/G Ratio) 1.4 1.0-2.5 [place] [address]-05-09 14:56:00 Test Item Value Reference Range Interpretation Comments Bili Total (test code = Bili Total) 0.5 0.2-1.2 [place] [address]-05-09 14:56:00 Test Item Value Reference Range Interpretation Comments Alk Phos (test code = Alk Phos) 58 31-125 [place] 134462-05-09 14:56:00 Test Item Value Reference Range Interpretation Comments ASPARTATE TRANSAMINASE (test code = 16 10-30 ASPARTATE TRANSAMINASE) [place] 134462-05-09 14:56:00 Test Item Value Reference Range Interpretation Comments ALANINE AMINOTRANSFERASE (test code = 11 6-29 ALANINE AMINOTRANSFERASE) [facility]2022-05-09 14:56:00 Test Item Value Reference Range Interpretation Comments Chloride Lvl (test code = Chloride Lvl) 107 98-110 [place] 386422-05-09 14:56:00 Test Item Value Reference Range Interpretation Comments WBC X 10x3 (test code = WBC X 10x3) 4.7 3.8-10.8 [facility] CenterUlvzshjTGGVCSSGKT0277-38-67 14:56:00 Test Item Value Reference Range Interpretation Comments RBC X 10x6 (test code = RBC X 10x6) 4.50 3.80-5.10 [place] 386422-05-09 14:56:00 Test Item Value Reference Range Interpretation Comments Hgb (test code = Hgb) 11.3 11.7-15.5 [place] 386422-05-09 14:56:00 Test Item Value Reference Range Interpretation Comments Hct (test code = Hct) 36.2 35.0-45.0 [facility] CenterZlncuagEIQLEQNHZR3758-93-80 14:56:00 Test Item Value Reference Range Interpretation Comments MCV (test code = MCV) 80.4 80.0-100.0 [facility] CenterAatppymJUVOMFAEZM9719-71-71 14:56:00 Test Item Value Reference Range Interpretation Comments MCH (test code = MCH) 25.1 pg 27.0-33.0 [facility] CenterVjiavlwNQXTBDUGAT2376-95-26 14:56:00 Test Item Value Reference Range Interpretation Comments MCHC (test code = MCHC) 31.2 32.0-36.0 [facility] CenterWwukfuoCGXQDVQEFZ7320-85-90 14:56:00 Test Item Value Reference Range Interpretation Comments RDW (test code = RDW) 13.9 11.0-15.0 [place] [address]-05-09 14:56:00 Test Item Value Reference Range Interpretation Comments Platelet (test code = Platelet) 249 140-400 [facility] CenterKtlfysbUHABHTLIOZ2404-10-12 14:56:00 Test Item Value Reference Range Interpretation Comments MPV (test code = MPV) 11.4 7.5-12.5 [facility]2022-05-09 14:56:00 Test Item Value Reference Range Interpretation Comments CO2 (test code = CO2) 25 20-32 [address]05-09 14:56:00 Test Item Value Reference Range Interpretation Comments Neutrophils # (test code = Neutrophils 1889 2495-8869 #) [facility] CenterGvsuqwkKWBXIOSDZY7019-83-40 14:56:00 Test Item Value Reference Range Interpretation Comments Lymphocytes # (test code = Lymphocytes 2153 850-3900 #) [facility] CenterWnpxzssOLXFHNWXQG1565-56-74 14:56:00 Test Item Value Reference Range Interpretation Comments Monocytes # (test code = Monocytes #) 400 200-950 [facility] CenterIhhvixyRRTJWXFETI2375-71-74 14:56:00 Test Item Value Reference Range Interpretation Comments Eosinophils # (test code = Eosinophils 188 15-500 #) [facility] CenterGufnxdxIOPCAUAJKD4810-43-04 14:56:00 Test Item Value Reference Range Interpretation Comments Basophils # (test code 71 See_Comment [Aut omated message] The = Basophils #) system which generated this result tra nsmitted reference range : <=200. The reference r kailee was not used to int erpret this result as normal/abnormal . [facility] CenterNkbdhzhWBSTZNJJCB4998-43-43 14:56:00 Test Item Value Reference Range Interpretation Comments Segs (test code = Segs) 40.2 [facility] CenterYxkxapiTECSORYDDN3660-15-63 14:56:00 Test Item Value Reference Range Interpretation Comments Lymphocytes (test code = Lymphocytes) 45.8 [facility] CenterZhueolcHPQCPDBXMZ1591-11-62 14:56:00 Test Item Value Reference Range Interpretation Comments Monocytes (test code = Monocytes) 8.5 [facility] CenterIhmulaoTLJBGLGHPV2467-31-72 14:56:00 Test Item Value Reference Range Interpretation Comments Eosinophils (test code = Eosinophils) 4.0 [facility] CenterEthosisSPVEDTTPOJ3475-72-84 14:56:00 Test Item Value Reference Range Interpretation Comments Basophils (test code = Basophils) 1.5 [facility] TNIZA6973-65-70 14:56:00 Test Item Value Reference Range Interpretation Comments Calcium Lvl (test code = Calcium Lvl) 9.0 8.6-10.2 [facility] CenterKcshxpfESSEBVPATJ4129-17-66 14:56:00 Test Item Value Reference Range Interpretation Comments Sed Rate (test code = Sed Rate) [facility]2022-05-09 14:56:00 Test Item Value Reference Range Interpretation Comments Vitamin B12 Lvl (test code = Vitamin 282 868-5003 B12 Lvl) [place] 134462-05-09 14:56:00 Test Item Value Reference Range Interpretation Comments Glucose Lvl (test code = Glucose Lvl) 80 65-99 [place] 134462-05-09 14:56:00 Test Item Value Reference Range Interpretation Comments BUN (test code = BUN) 10 7-25 [place] 134462-05-09 14:56:00 Test Item Value Reference Range Interpretation Comments Creatinine Lvl (test code = Creatinine 0.80 0.50-1.10 Lvl) [place] 134462-05-09 14:56:00 Test Item Value Reference Range Interpretation Comments eGFR NON-AFR. ALBANIAN (test code = 92 eGFR NON-AFR. ALBANIAN) [place] 134462-05-09 14:56:00 Test Item Value Reference Range Interpretation Comments Total Protein (test code = Total 7.1 6.1-8.1 Protein) [place] 134462-05-09 14:56:00 Test Item Value Reference Range Interpretation Comments eGFR (test code = eGFR 106 ) [place] 134462-05-09 14:56:00 Test Item Value Reference Range Interpretation Comments B/C Ratio (test code = B/C NOT APPLICABLE 6-22 Ratio) [place] 134462-05-09 14:56:00 Test Item Value Reference Range Interpretation Comments Sodium Lvl (test code = Sodium Lvl) 137 135-146 [place] 134462-05-09 14:56:00 Test Item Value Reference Range Interpretation Comments Potassium Lvl (test code = Potassium 4.0 3.5-5.3 Lvl) [place] 134462-05-09 14:56:00 Test Item Value Reference Range Interpretation Comments Chloride Lvl (test code = Chloride Lvl) 107 98-110 [place] 134462-05-09 14:56:00 Test Item Value Reference Range Interpretation Comments CO2 (test code = CO2) 25 20-32 [place] 134462-05-09 14:56:00 Test Item Value Reference Range Interpretation Comments Calcium Lvl (test code = Calcium Lvl) 9.0 8.6-10.2 [place] 134462-05-09 14:56:00 Test Item Value Reference Range Interpretation Comments Total Protein (test code = Total 7.1 6.1-8.1 Protein) [place] 134462-05-09 14:56:00 Test Item Value Reference Range Interpretation Comments Albumin Lvl (test code = Albumin Lvl) 4.1 3.6-5.1 [place] [address]-05-09 14:56:00 Test Item Value Reference Range Interpretation Comments Globulin (test code = Globulin) 3.0 1.9-3.7 [place] [address]-05-09 14:56:00 Test Item Value Reference Range Interpretation Comments Albumin Lvl (test code = Albumin Lvl) 4.1 3.6-5.1 [place] [address]-05-09 14:56:00 Test Item Value Reference Range Interpretation Comments A/G Ratio (test code = A/G Ratio) 1.4 1.0-2.5 [place] [address]-05-09 14:56:00 Test Item Value Reference Range Interpretation Comments Bili Total (test code = Bili Total) 0.5 0.2-1.2 [place] [address]-05-09 14:56:00 Test Item Value Reference Range Interpretation Comments Alk Phos (test code = Alk Phos) 58 31-125 [place] [address]-05-09 14:56:00 Test Item Value Reference Range Interpretation Comments ASPARTATE TRANSAMINASE (test code = 16 10-30 ASPARTATE TRANSAMINASE) [place] [address]-05-09 14:56:00 Test Item Value Reference Range Interpretation Comments ALANINE AMINOTRANSFERASE (test code = 11 6-29 ALANINE AMINOTRANSFERASE) [place] [address]-05-09 14:56:00 Test Item Value Reference Range Interpretation Comments WBC X 10x3 (test code = WBC X 10x3) 4.7 3.8-10.8 [place] [address]-05-09 14:56:00 Test Item Value Reference Range Interpretation Comments RBC X 10x6 (test code = RBC X 10x6) 4.50 3.80-5.10 [place] [address]-05-09 14:56:00 Test Item Value Reference Range Interpretation Comments Hgb (test code = Hgb) 11.3 11.7-15.5 [place] [address]-05-09 14:56:00 Test Item Value Reference Range Interpretation Comments Hct (test code = Hct) 36.2 35.0-45.0 [facility]neLkdaxveWQFTZSHXPH7931-97-17 14:56:00 Test Item Value Reference Range Interpretation Comments MCV (test code = MCV) 80.4 80.0-100.0 [facility]2022-05-09 14:56:00 Test Item Value Reference Range Interpretation Comments Globulin (test code = Globulin) 3.0 1.9-3.7 [facility] CenterHjuaronFYWXLEJZHM6337-62-02 14:56:00 Test Item Value Reference Range Interpretation Comments MCH (test code = MCH) 25.1 pg 27.0-33.0 [facility]NlcorwrJLLDSNLPOG5751-79-25 14:56:00 Test Item Value Reference Range Interpretation Comments MCHC (test code = MCHC) 31.2 32.0-36.0 [facility] CenterEweyhdpSZZQPKSBJQ2126-44-63 14:56:00 Test Item Value Reference Range Interpretation Comments RDW (test code = RDW) 13.9 11.0-15.0 [facility] CenterAamwactUFBTCRDCEV3752-82-42 14:56:00 Test Item Value Reference Range Interpretation Comments Platelet (test code = Platelet) 249 140-400 [facility] CenterXpxjevdWQTCTSQNUT7567-16-34 14:56:00 Test Item Value Reference Range Interpretation Comments MPV (test code = MPV) 11.4 7.5-12.5 [place] 386422-05-09 14:56:00 Test Item Value Reference Range Interpretation Comments Neutrophils # (test code = Neutrophils 1889 6829-5679 #) [facility] CenterLfxvftlEKCKFDVDDX3888-20-65 14:56:00 Test Item Value Reference Range Interpretation Comments Lymphocytes # (test code = Lymphocytes 2153 850-3900 #) [facility] CenterRkbawukSGKXRCYORJ6797-65-14 14:56:00 Test Item Value Reference Range Interpretation Comments Monocytes # (test code = Monocytes #) 400 200-950 [facility] CenterWlaesfiCJGAYFMTHJ7321-24-25 14:56:00 Test Item Value Reference Range Interpretation Comments Eosinophils # (test code = Eosinophils 188 15-500 #) [facility] CenterLsffwcnCXDOOTGLEL9558-87-08 14:56:00 Test Item Value Reference Range Interpretation Comments Basophils # (test code 71 See_Comment [Aut omated message] The = Basophils #) system which generated this result tra nsmitted reference range : <=200. The reference r kailee was not used to int erpret this result as normal/abnormal . [facility]2022-05-09 14:56:00 Test Item Value Reference Range Interpretation Comments A/G Ratio (test code = A/G Ratio) 1.4 1.0-2.5 [place] 386422-05-09 14:56:00 Test Item Value Reference Range Interpretation Comments Segs (test code = Segs) 40.2 [place] 386422-05-09 14:56:00 Test Item Value Reference Range Interpretation Comments Lymphocytes (test code = Lymphocytes) 45.8 [place] [address]-05-09 14:56:00 Test Item Value Reference Range Interpretation Comments Monocytes (test code = Monocytes) 8.5 [place] [address]-05-09 14:56:00 Test Item Value Reference Range Interpretation Comments Eosinophils (test code = Eosinophils) 4.0 [place] [address]-05-09 14:56:00 Test Item Value Reference Range Interpretation Comments Basophils (test code = Basophils) 1.5 [place] [address]-05-09 14:56:00 Test Item Value Reference Range Interpretation Comments Sed Rate (test code = Sed Rate) TNP [facility]2022-05-09 14:56:00 Test Item Value Reference Range Interpretation Comments Bili Total (test code = Bili Total) 0.5 0.2-1.2 [facility]2022-05-09 14:56:00 Test Item Value Reference Range Interpretation Comments Vitamin B12 Lvl (test code = Vitamin 312 606-5070 B12 Lvl) [place] 134462-05-09 14:56:00 Test Item Value Reference Range Interpretation Comments Glucose Lvl (test code = Glucose Lvl) 80 65-99 [place] 134462-05-09 14:56:00 Test Item Value Reference Range Interpretation Comments BUN (test code = BUN) 10 7-25 [place] 134462-05-09 14:56:00 Test Item Value Reference Range Interpretation Comments Creatinine Lvl (test code = Creatinine 0.80 0.50-1.10 Lvl) [place] 134462-05-09 14:56:00 Test Item Value Reference Range Interpretation Comments eGFR NON-AFR. ALBANIAN (test code = 92 eGFR NON-AFR. ALBANIAN) [place] 134462-05-09 14:56:00 Test Item Value Reference Range Interpretation Comments eGFR (test code = eGFR 106 ) [place] [address]-05-09 14:56:00 Test Item Value Reference Range Interpretation Comments B/C Ratio (test code = B/C NOT APPLICABLE 6-22 Ratio) [place] 134462-05-09 14:56:00 Test Item Value Reference Range Interpretation Comments Sodium Lvl (test code = Sodium Lvl) 137 135-146 [place] [address]-05-09 14:56:00 Test Item Value Reference Range Interpretation Comments Potassium Lvl (test code = Potassium 4.0 3.5-5.3 Lvl) [place] 134462-05-09 14:56:00 Test Item Value Reference Range Interpretation Comments Chloride Lvl (test code = Chloride Lvl) 107 98-110 [place] 134462-05-09 14:56:00 Test Item Value Reference Range Interpretation Comments Alk Phos (test code = Alk Phos) 58 31-125 [place] 134462-05-09 14:56:00 Test Item Value Reference Range Interpretation Comments CO2 (test code = CO2) 25 20-32 [place] 134462-05-09 14:56:00 Test Item Value Reference Range Interpretation Comments Calcium Lvl (test code = Calcium Lvl) 9.0 8.6-10.2 [place] 134462-05-09 14:56:00 Test Item Value Reference Range Interpretation Comments Total Protein (test code = Total 7.1 6.1-8.1 Protein) [place] 134462-05-09 14:56:00 Test Item Value Reference Range Interpretation Comments Albumin Lvl (test code = Albumin Lvl) 4.1 3.6-5.1 [place] 134462-05-09 14:56:00 Test Item Value Reference Range Interpretation Comments Globulin (test code = Globulin) 3.0 1.9-3.7 [place] 134462-05-09 14:56:00 Test Item Value Reference Range Interpretation Comments A/G Ratio (test code = A/G Ratio) 1.4 1.0-2.5 [place] 134462-05-09 14:56:00 Test Item Value Reference Range Interpretation Comments Bili Total (test code = Bili Total) 0.5 0.2-1.2 [place] [address]-05-09 14:56:00 Test Item Value Reference Range Interpretation Comments Alk Phos (test code = Alk Phos) 58 31-125 [place] [address]-05-09 14:56:00 Test Item Value Reference Range Interpretation Comments ASPARTATE TRANSAMINASE (test code = 16 10-30 ASPARTATE TRANSAMINASE) [place] [address]-05-09 14:56:00 Test Item Value Reference Range Interpretation Comments ALANINE AMINOTRANSFERASE (test code = 11 6-29 ALANINE AMINOTRANSFERASE) [address]05-09 14:56:00 Test Item Value Reference Range Interpretation Comments ASPARTATE TRANSAMINASE (test code = 16 10-30 ASPARTATE TRANSAMINASE) [address]05-09 14:56:00 Test Item Value Reference Range Interpretation Comments WBC X 10x3 (test code = WBC X 10x3) 4.7 3.8-10.8 [place] [address]-05-09 14:56:00 Test Item Value Reference Range Interpretation Comments RBC X 10x6 (test code = RBC X 10x6) 4.50 3.80-5.10 [place] [address]-05-09 14:56:00 Test Item Value Reference Range Interpretation Comments Hgb (test code = Hgb) 11.3 11.7-15.5 [place] 386422-05-09 14:56:00 Test Item Value Reference Range Interpretation Comments Hct (test code = Hct) 36.2 35.0-45.0 [place] [address]-05-09 14:56:00 Test Item Value Reference Range Interpretation Comments MCV (test code = MCV) 80.4 80.0-100.0 [place] [address]-05-09 14:56:00 Test Item Value Reference Range Interpretation Comments MCH (test code = MCH) 25.1 pg 27.0-33.0 [place] [address]-05-09 14:56:00 Test Item Value Reference Range Interpretation Comments MCHC (test code = MCHC) 31.2 32.0-36.0 [address]05-09 14:56:00 Test Item Value Reference Range Interpretation Comments RDW (test code = RDW) 13.9 11.0-15.0 [place] [address]-05-09 14:56:00 Test Item Value Reference Range Interpretation Comments Platelet (test code = Platelet) 249 140-400 [place] 386422-05-09 14:56:00 Test Item Value Reference Range Interpretation Comments MPV (test code = MPV) 11.4 7.5-12.5 [facility]2022-05-09 14:56:00 Test Item Value Reference Range Interpretation Comments ALANINE AMINOTRANSFERASE (test code = 11 6-29 ALANINE AMINOTRANSFERASE) [place] [address]-05-09 14:56:00 Test Item Value Reference Range Interpretation Comments Neutrophils # (test code = Neutrophils 1889 7028-0543 #) [place] 386422-05-09 14:56:00 Test Item Value Reference Range Interpretation Comments Lymphocytes # (test code = Lymphocytes 2153 850-3900 #) [place] 386422-05-09 14:56:00 Test Item Value Reference Range Interpretation Comments Monocytes # (test code = Monocytes #) 400 200-950 [place] 386422-05-09 14:56:00 Test Item Value Reference Range Interpretation Comments Eosinophils # (test code = Eosinophils 188 15-500 #) [facility] CenterPkqriryDCGCPANRMS3133-65-65 14:56:00 Test Item Value Reference Range Interpretation Comments Basophils # (test code 71 See_Comment [Aut omated message] The = Basophils #) system which generated this result tra nsmitted reference range : <=200. The reference r kailee was not used to int erpret this result as normal/abnormal . [place] [address]-05-09 14:56:00 Test Item Value Reference Range Interpretation Comments Segs (test code = Segs) 40.2 [place] [address]-05-09 14:56:00 Test Item Value Reference Range Interpretation Comments Lymphocytes (test code = Lymphocytes) 45.8 [place] [address]-05-09 14:56:00 Test Item Value Reference Range Interpretation Comments Monocytes (test code = Monocytes) 8.5 [place] 386422-05-09 14:56:00 Test Item Value Reference Range Interpretation Comments Eosinophils (test code = Eosinophils) 4.0 [place] 386422-05-09 14:56:00 Test Item Value Reference Range Interpretation Comments Basophils (test code = Basophils) 1.5 [place] [address]-05-09 14:56:00 Test Item Value Reference Range Interpretation Comments WBC X 10x3 (test code = WBC X 10x3) 4.7 3.8-10.8 [place] [address]-05-09 14:56:00 Test Item Value Reference Range Interpretation Comments [facility]test code = [facility] 14:[facility] Test Item Value Reference Range Interpretation Comments Vitamin B12 Lvl (test code = Vitamin 074 347-9274 B12 Lvl) [facility]2022-05-09 14:56:00 Test Item Value Reference Range Interpretation Comments Glucose Lvl (test code = Glucose Lvl) 80 65-99 [place] 134462-05-09 14:56:00 Test Item Value Reference Range Interpretation Comments BUN (test code = BUN) 10 7-25 [place] 134462-05-09 14:56:00 Test Item Value Reference Range Interpretation Comments Creatinine Lvl (test code = Creatinine 0.80 0.50-1.10 Lvl) [place] 134462-05-09 14:56:00 Test Item Value Reference Range Interpretation Comments eGFR NON-AFR. ALBANIAN (test code = 92 eGFR NON-AFR. ALBANIAN) [place] 386422-05-09 14:56:00 Test Item Value Reference Range Interpretation Comments RBC X 10x6 (test code = RBC X 10x6) 4.50 3.80-5.10 [place] 134462-05-09 14:56:00 Test Item Value Reference Range Interpretation Comments eGFR (test code = eGFR 106 ) [place] 134462-05-09 14:56:00 Test Item Value Reference Range Interpretation Comments B/C Ratio (test code = B/C NOT APPLICABLE 622 Ratio) [place] 134462-05-09 14:56:00 Test Item Value Reference Range Interpretation Comments Sodium Lvl (test code = Sodium Lvl) 137 135-146 [place] 134462-05-09 14:56:00 Test Item Value Reference Range Interpretation Comments Potassium Lvl (test code = Potassium 4.0 3.5-5.3 Lvl) [place] 134462-05-09 14:56:00 Test Item Value Reference Range Interpretation Comments Chloride Lvl (test code = Chloride Lvl) 107 98-110 [place] 134462-05-09 14:56:00 Test Item Value Reference Range Interpretation Comments CO2 (test code = CO2) 25 20-32 [place] 134462-05-09 14:56:00 Test Item Value Reference Range Interpretation Comments Calcium Lvl (test code = Calcium Lvl) 9.0 8.6-10.2 [place] 134462-05-09 14:56:00 Test Item Value Reference Range Interpretation Comments Total Protein (test code = Total 7.1 6.1-8.1 Protein) [place] [address]-05-09 14:56:00 Test Item Value Reference Range Interpretation Comments Albumin Lvl (test code = Albumin Lvl) 4.1 3.6-5.1 [place] 134462-05-09 14:56:00 Test Item Value Reference Range Interpretation Comments Globulin (test code = Globulin) 3.0 1.9-3.7 [place] 386422-05-09 14:56:00 Test Item Value Reference Range Interpretation Comments Hgb (test code = Hgb) 11.3 11.7-15.5 [place] [address]-05-09 14:56:00 Test Item Value Reference Range Interpretation Comments A/G Ratio (test code = A/G Ratio) 1.4 1.0-2.5 [place] 134462-05-09 14:56:00 Test Item Value Reference Range Interpretation Comments Bili Total (test code = Bili Total) 0.5 0.2-1.2 [place] [address]-05-09 14:56:00 Test Item Value Reference Range Interpretation Comments Alk Phos (test code = Alk Phos) 58 31-125 [place] 134462-05-09 14:56:00 Test Item Value Reference Range Interpretation Comments ASPARTATE TRANSAMINASE (test code = 16 10-30 ASPARTATE TRANSAMINASE) [place] [address]-05-09 14:56:00 Test Item Value Reference Range Interpretation Comments ALANINE AMINOTRANSFERASE (test code = 11 6-29 ALANINE AMINOTRANSFERASE) [place] [address]-05-09 14:56:00 Test Item Value Reference Range Interpretation Comments WBC X 10x3 (test code = WBC X 10x3) 4.7 3.8-10.8 [place] 386422-05-09 14:56:00 Test Item Value Reference Range Interpretation Comments RBC X 10x6 (test code = RBC X 10x6) 4.50 3.80-5.10 [place] [address]-05-09 14:56:00 Test Item Value Reference Range Interpretation Comments Hgb (test code = Hgb) 11.3 11.7-15.5 [place] [address]-05-09 14:56:00 Test Item Value Reference Range Interpretation Comments Hct (test code = Hct) 36.2 35.0-45.0 [place] [address]-05-09 14:56:00 Test Item Value Reference Range Interpretation Comments MCV (test code = MCV) 80.4 80.0-100.0 [place] [address]-05-09 14:56:00 Test Item Value Reference Range Interpretation Comments Hct (test code = Hct) 36.2 35.0-45.0 [place] [address]-05-09 14:56:00 Test Item Value Reference Range Interpretation Comments MCH (test code = MCH) 25.1 pg 27.0-33.0 [place] [address]-05-09 14:56:00 Test Item Value Reference Range Interpretation Comments MCHC (test code = MCHC) 31.2 32.0-36.0 [place] [address]-05-09 14:56:00 Test Item Value Reference Range Interpretation Comments RDW (test code = RDW) 13.9 11.0-15.0 [place] [address]-05-09 14:56:00 Test Item Value Reference Range Interpretation Comments Platelet (test code = Platelet) 249 140-400 [place] 386422-05-09 14:56:00 Test Item Value Reference Range Interpretation Comments MPV (test code = MPV) 11.4 7.5-12.5 [place] [address]-05-09 14:56:00 Test Item Value Reference Range Interpretation Comments Neutrophils # (test code = Neutrophils 1889 8974-6208 #) [facility]HdvwaigKPQXQVUJPV5064-31-35 14:56:00 Test Item Value Reference Range Interpretation Comments Lymphocytes # (test code = Lymphocytes 2153 850-3900 #) [facility] CenterBjjcovrKWDTBGUUKX0085-51-74 14:56:00 Test Item Value Reference Range Interpretation Comments Monocytes # (test code = Monocytes #) 400 200-950 [place] 386422-05-09 14:56:00 Test Item Value Reference Range Interpretation Comments Eosinophils # (test code = Eosinophils 188 15-500 #) [facility] CenterUoubmcvNCQSFOTZTO4039-66-63 14:56:00 Test Item Value Reference Range Interpretation Comments Basophils # (test code 71 See_Comment [Aut omated message] The = Basophils #) system which generated this result tra nsmitted reference range : <=200. The reference r kailee was not used to int erpret this result as normal/abnormal . [facility] CenterLkklcdyTNUFFYQVDS0679-02-19 14:56:00 Test Item Value Reference Range Interpretation Comments MCV (test code = MCV) 80.4 80.0-100.0 [facility] CenterWjeasfdJYVWNIXCQN6762-88-58 14:56:00 Test Item Value Reference Range Interpretation Comments Segs (test code = Segs) 40.2 [facility] CenterTlqicjcDZXPOEVVMV1293-45-10 14:56:00 Test Item Value Reference Range Interpretation Comments Lymphocytes (test code = Lymphocytes) 45.8 [facility] CenterMjixbxvURPSYFUTIC8537-66-28 14:56:00 Test Item Value Reference Range Interpretation Comments Monocytes (test code = Monocytes) 8.5 [facility] CenterUtxlrinOUWAHDTSHH9724-10-86 14:56:00 Test Item Value Reference Range Interpretation Comments Eosinophils (test code = Eosinophils) 4.0 [facility] CenterDhlxrswASDVWYULFF3046-02-61 14:56:00 Test Item Value Reference Range Interpretation Comments Basophils (test code = Basophils) 1.5 [place] 386422-05-09 14:56:00 Test Item Value Reference Range Interpretation Comments Sed Rate (test code = Sed Rate) TNP [facility] CenterUgzgyrlFGNZGLJHIG5782-95-36 14:56:00 Test Item Value Reference Range Interpretation Comments MCH (test code = MCH) 25.1 pg 27.0-33.0 [facility]2022-05-09 14:56:00 Test Item Value Reference Range Interpretation Comments Vitamin B12 Lvl (test code = Vitamin [phone] B12 Lvl) [facility]2022-05-09 14:56:00 Test Item Value Reference Range Interpretation Comments Glucose Lvl (test code = Glucose Lvl) 80 65-99 [place] 134462-05-09 14:56:00 Test Item Value Reference Range Interpretation Comments BUN (test code = BUN) 10 7-25 [place] 134462-05-09 14:56:00 Test Item Value Reference Range Interpretation Comments Creatinine Lvl (test code = Creatinine 0.80 0.50-1.10 Lvl) [place] 134462-05-09 14:56:00 Test Item Value Reference Range Interpretation Comments eGFR NON-AFR. ALBANIAN (test code = 92 eGFR NON-AFR. ALBANIAN) [place] 134462-05-09 14:56:00 Test Item Value Reference Range Interpretation Comments eGFR (test code = eGFR 106 ) [place] 134462-05-09 14:56:00 Test Item Value Reference Range Interpretation Comments B/C Ratio (test code = B/C NOT APPLICABLE 622 Ratio) [place] 134462-05-09 14:56:00 Test Item Value Reference Range Interpretation Comments Sodium Lvl (test code = Sodium Lvl) 137 135-146 [place] 134462-05-09 14:56:00 Test Item Value Reference Range Interpretation Comments Potassium Lvl (test code = Potassium 4.0 3.5-5.3 Lvl) [place] 134462-05-09 14:56:00 Test Item Value Reference Range Interpretation Comments Chloride Lvl (test code = Chloride Lvl) 107 98-110 [facility] HospitalGikelglXOPNPAEYXU4475-70-52 14:56:00 Test Item Value Reference Range Interpretation Comments MCHC (test code = MCHC) 31.2 32.0-36.0 [place] 134462-05-09 14:56:00 Test Item Value Reference Range Interpretation Comments CO2 (test code = CO2) 25 20-32 [place] 134462-05-09 14:56:00 Test Item Value Reference Range Interpretation Comments Calcium Lvl (test code = Calcium Lvl) 9.0 8.6-10.2 [place] 134462-05-09 14:56:00 Test Item Value Reference Range Interpretation Comments Total Protein (test code = Total 7.1 6.1-8.1 Protein) [place] [address]-05-09 14:56:00 Test Item Value Reference Range Interpretation Comments Albumin Lvl (test code = Albumin Lvl) 4.1 3.6-5.1 [place] [address]-05-09 14:56:00 Test Item Value Reference Range Interpretation Comments Globulin (test code = Globulin) 3.0 1.9-3.7 [place] [address]-05-09 14:56:00 Test Item Value Reference Range Interpretation Comments A/G Ratio (test code = A/G Ratio) 1.4 1.0-2.5 [place] [address]-05-09 14:56:00 Test Item Value Reference Range Interpretation Comments Bili Total (test code = Bili Total) 0.5 0.2-1.2 [place] [address]-05-09 14:56:00 Test Item Value Reference Range Interpretation Comments Alk Phos (test code = Alk Phos) 58 31-125 [place] 134462-05-09 14:56:00 Test Item Value Reference Range Interpretation Comments ASPARTATE TRANSAMINASE (test code = 16 10-30 ASPARTATE TRANSAMINASE) [place] [address]-05-09 14:56:00 Test Item Value Reference Range Interpretation Comments ALANINE AMINOTRANSFERASE (test code = 11 6-29 ALANINE AMINOTRANSFERASE) [place] [address]-05-09 14:56:00 Test Item Value Reference Range Interpretation Comments RDW (test code = RDW) 13.9 11.0-15.0 [place] [address]-05-09 14:56:00 Test Item Value Reference Range Interpretation Comments WBC X 10x3 (test code = WBC X 10x3) 4.7 3.8-10.8 [place] [address]-05-09 14:56:00 Test Item Value Reference Range Interpretation Comments RBC X 10x6 (test code = RBC X 10x6) 4.50 3.80-5.10 [place] [address]-05-09 14:56:00 Test Item Value Reference Range Interpretation Comments Hgb (test code = Hgb) 11.3 11.7-15.5 [place] [address]-05-09 14:56:00 Test Item Value Reference Range Interpretation Comments Hct (test code = Hct) 36.2 35.0-45.0 [place] 386422-05-09 14:56:00 Test Item Value Reference Range Interpretation Comments MCV (test code = MCV) 80.4 80.0-100.0 [place] 386422-05-09 14:56:00 Test Item Value Reference Range Interpretation Comments MCH (test code = MCH) 25.1 pg 27.0-33.0 [place] 386422-05-09 14:56:00 Test Item Value Reference Range Interpretation Comments MCHC (test code = MCHC) 31.2 32.0-36.0 [place] 386422-05-09 14:56:00 Test Item Value Reference Range Interpretation Comments RDW (test code = RDW) 13.9 11.0-15.0 [place] 386422-05-09 14:56:00 Test Item Value Reference Range Interpretation Comments Platelet (test code = Platelet) 249 140-400 [facility] CenterNledvsoVEYPHWEMEG6238-54-96 14:56:00 Test Item Value Reference Range Interpretation Comments MPV (test code = MPV) 11.4 7.5-12.5 [facility] CenterAfskgmvRCRZXEHRBE1778-35-17 14:56:00 Test Item Value Reference Range Interpretation Comments Platelet (test code = Platelet) 249 140-400 [facility] CenterEqukrtjCLFHXUPDFO7880-76-38 14:56:00 Test Item Value Reference Range Interpretation Comments Neutrophils # (test code = Neutrophils 1889 4253-9173 #) [facility] CenterOaekmhlRFYIBAJRSS5368-45-30 14:56:00 Test Item Value Reference Range Interpretation Comments Lymphocytes # (test code = Lymphocytes 2153 850-3900 #) [facility] CenterBpyvepbHRFEIGEMRZ2447-74-49 14:56:00 Test Item Value Reference Range Interpretation Comments Monocytes # (test code = Monocytes #) 400 200-950 [facility] CenterVwgdcoyYGQSHXAZUH5550-63-95 14:56:00 Test Item Value Reference Range Interpretation Comments Eosinophils # (test code = Eosinophils 188 15-500 #) [place] 386422-05-09 14:56:00 Test Item Value Reference Range Interpretation Comments Basophils # (test code 71 See_Comment [Aut omated message] The = Basophils #) system which generated this result tra nsmitted reference range : <=200. The reference r kailee was not used to int erpret this result as normal/abnormal . [facility] CenterEmqtmugOWXPJZUYIG4915-69-94 14:56:00 Test Item Value Reference Range Interpretation Comments Segs (test code = Segs) 40.2 [place] [address]-05-09 14:56:00 Test Item Value Reference Range Interpretation Comments Lymphocytes (test code = Lymphocytes) 45.8 [place] [address]-05-09 14:56:00 Test Item Value Reference Range Interpretation Comments Monocytes (test code = Monocytes) 8.5 [place] [address]-05-09 14:56:00 Test Item Value Reference Range Interpretation Comments Eosinophils (test code = Eosinophils) 4.0 [place] [address]-05-09 14:56:00 Test Item Value Reference Range Interpretation Comments Basophils (test code = Basophils) 1.5 [place] 386422-05-09 14:56:00 Test Item Value Reference Range Interpretation Comments MPV (test code = MPV) 11.4 7.5-12.5 [place] 386422-05-09 14:56:00 Test Item Value Reference Range Interpretation Comments Sed Rate (test code = Sed Rate) TNP [facility]2022-05-09 14:56:00 Test Item Value Reference Range Interpretation Comments Vitamin B12 Lvl (test code = Vitamin [phone] B12 Lvl) [facility]2022-05-09 14:56:00 Test Item Value Reference Range Interpretation Comments Glucose Lvl (test code = Glucose Lvl) 80 65-99 [place] 134462-05-09 14:56:00 Test Item Value Reference Range Interpretation Comments BUN (test code = BUN) 10 7-25 [place] 134462-05-09 14:56:00 Test Item Value Reference Range Interpretation Comments Creatinine Lvl (test code = Creatinine 0.80 0.50-1.10 Lvl) [place] 386422-05-09 14:56:00 Test Item Value Reference Range Interpretation Comments Neutrophils # (test code = Neutrophils 1889 7468-9542 #) [facility]2022-05-09 14:56:00 Test Item Value Reference Range Interpretation Comments eGFR NON-AFR. ALBANIAN (test code = 92 eGFR NON-AFR. ALBANIAN) [facility]2022-05-09 14:56:00 Test Item Value Reference Range Interpretation Comments eGFR (test code = eGFR 106 ) [place] 134462-05-09 14:56:00 Test Item Value Reference Range Interpretation Comments B/C Ratio (test code = B/C NOT APPLICABLE 6-22 Ratio) [place] 134462-05-09 14:56:00 Test Item Value Reference Range Interpretation Comments Sodium Lvl (test code = Sodium Lvl) 137 135-146 [place] 134462-05-09 14:56:00 Test Item Value Reference Range Interpretation Comments Potassium Lvl (test code = Potassium 4.0 3.5-5.3 Lvl) [place] 134462-05-09 14:56:00 Test Item Value Reference Range Interpretation Comments Chloride Lvl (test code = Chloride Lvl) 107 98-110 [place] 134462-05-09 14:56:00 Test Item Value Reference Range Interpretation Comments CO2 (test code = CO2) 25 20-32 [place] 134462-05-09 14:56:00 Test Item Value Reference Range Interpretation Comments Calcium Lvl (test code = Calcium Lvl) 9.0 8.6-10.2 [place] 134462-05-09 14:56:00 Test Item Value Reference Range Interpretation Comments Total Protein (test code = Total 7.1 6.1-8.1 Protein) [place] 134462-05-09 14:56:00 Test Item Value Reference Range Interpretation Comments Albumin Lvl (test code = Albumin Lvl) 4.1 3.6-5.1 [facility] HospitalEbwdfdkMWXTLJRQIT2525-98-33 14:56:00 Test Item Value Reference Range Interpretation Comments Lymphocytes # (test code = Lymphocytes 2153 850-3900 #) [facility]2022-05-09 14:56:00 Test Item Value Reference Range Interpretation Comments Globulin (test code = Globulin) 3.0 1.9-3.7 [place] 134462-05-09 14:56:00 Test Item Value Reference Range Interpretation Comments A/G Ratio (test code = A/G Ratio) 1.4 1.0-2.5 [place] 134462-05-09 14:56:00 Test Item Value Reference Range Interpretation Comments Bili Total (test code = Bili Total) 0.5 0.2-1.2 [place] 134462-05-09 14:56:00 Test Item Value Reference Range Interpretation Comments Alk Phos (test code = Alk Phos) 58 31-125 [place] 134462-05-09 14:56:00 Test Item Value Reference Range Interpretation Comments ASPARTATE TRANSAMINASE (test code = 16 10-30 ASPARTATE TRANSAMINASE) [place] [address]-05-09 14:56:00 Test Item Value Reference Range Interpretation Comments ALANINE AMINOTRANSFERASE (test code = 11 6-29 ALANINE AMINOTRANSFERASE) [place] [address]-05-09 14:56:00 Test Item Value Reference Range Interpretation Comments WBC X 10x3 (test code = WBC X 10x3) 4.7 3.8-10.8 [place] [address]-05-09 14:56:00 Test Item Value Reference Range Interpretation Comments RBC X 10x6 (test code = RBC X 10x6) 4.50 3.80-5.10 [place] [address]-05-09 14:56:00 Test Item Value Reference Range Interpretation Comments Hgb (test code = Hgb) 11.3 11.7-15.5 [place] [address]-05-09 14:56:00 Test Item Value Reference Range Interpretation Comments Hct (test code = Hct) 36.2 35.0-45.0 [place] [address]-05-09 14:56:00 Test Item Value Reference Range Interpretation Comments Monocytes # (test code = Monocytes #) 400 200-950 [place] 386422-05-09 14:56:00 Test Item Value Reference Range Interpretation Comments MCV (test code = MCV) 80.4 80.0-100.0 [place] [address]-05-09 14:56:00 Test Item Value Reference Range Interpretation Comments MCH (test code = MCH) 25.1 pg 27.0-33.0 [place] [address]-05-09 14:56:00 Test Item Value Reference Range Interpretation Comments MCHC (test code = MCHC) 31.2 32.0-36.0 [place] [address]-05-09 14:56:00 Test Item Value Reference Range Interpretation Comments RDW (test code = RDW) 13.9 11.0-15.0 [facility] CenterSymlmutRTUYRUZWVT8443-96-72 14:56:00 Test Item Value Reference Range Interpretation Comments Platelet (test code = Platelet) 249 140-400 [facility] CenterYkcaijpWTMIMRJEVX6119-64-71 14:56:00 Test Item Value Reference Range Interpretation Comments MPV (test code = MPV) 11.4 7.5-12.5 [facility] CenterAueqrlwTMCSHXOOXK8394-16-28 14:56:00 Test Item Value Reference Range Interpretation Comments Neutrophils # (test code = Neutrophils 1889 7780-6690 #) [facility] CenterLazumrdWUTOAHPSOH8414-67-01 14:56:00 Test Item Value Reference Range Interpretation Comments Lymphocytes # (test code = Lymphocytes 2153 850-3900 #) [facility] CenterUirdgqmDUUUBQSWTQ3408-21-70 14:56:00 Test Item Value Reference Range Interpretation Comments Monocytes # (test code = Monocytes #) 400 200-950 [facility] CenterSalcshrSTXEFEPUCW2906-58-61 14:56:00 Test Item Value Reference Range Interpretation Comments Eosinophils # (test code = Eosinophils 188 15-500 #) [facility] CenterGznogihHRMZDQXTUG2004-07-64 14:56:00 Test Item Value Reference Range Interpretation Comments Eosinophils # (test code = Eosinophils 188 15-500 #) [facility] CenterQlhezzkWZVMRLTFHY2557-87-77 14:56:00 Test Item Value Reference Range Interpretation Comments Basophils # (test code 71 See_Comment [Aut omated message] The = Basophils #) system which generated this result tra nsmitted reference range : <=200. The reference r kailee was not used to int erpret this result as normal/abnormal . [facility] CenterNgdcvkiBXVTWPWYOE6612-15-91 14:56:00 Test Item Value Reference Range Interpretation Comments Segs (test code = Segs) 40.2 [place] 386422-05-09 14:56:00 Test Item Value Reference Range Interpretation Comments Lymphocytes (test code = Lymphocytes) 45.8 [place] 386422-05-09 14:56:00 Test Item Value Reference Range Interpretation Comments Monocytes (test code = Monocytes) 8.5 [facility] CenterBdwjzzjPRVHUHVSVQ7370-50-90 14:56:00 Test Item Value Reference Range Interpretation Comments Eosinophils (test code = Eosinophils) 4.0 [place] 386422-05-09 14:56:00 Test Item Value Reference Range Interpretation Comments Basophils (test code = Basophils) 1.5 [place] [address]-05-09 14:56:00 Test Item Value Reference Range Interpretation Comments Sed Rate (test code = Sed Rate) TNP [place] 386422-05-09 14:56:00 Test Item Value Reference Range Interpretation Comments Basophils # (test code 71 See_Comment [Aut omated message] The = Basophils #) system which generated this result tra nsmitted reference range : <=200. The reference r kailee was not used to int erpret this result as normal/abnormal . [facility]2022-05-09 14:56:00 Test Item Value Reference Range Interpretation Comments Vitamin B12 Lvl (test code = Vitamin [phone] B12 Lvl) [place] 134462-05-09 14:56:00 Test Item Value Reference Range Interpretation Comments Glucose Lvl (test code = Glucose Lvl) 80 65-99 [place] 134462-05-09 14:56:00 Test Item Value Reference Range Interpretation Comments BUN (test code = BUN) 10 7-25 [place] 134462-05-09 14:56:00 Test Item Value Reference Range Interpretation Comments Creatinine Lvl (test code = Creatinine 0.80 0.50-1.10 Lvl) [place] 134462-05-09 14:56:00 Test Item Value Reference Range Interpretation Comments eGFR NON-AFR. ALBANIAN (test code = 92 eGFR NON-AFR. ALBANIAN) [place] 134462-05-09 14:56:00 Test Item Value Reference Range Interpretation Comments eGFR (test code = eGFR 106 ) [place] [address]-05-09 14:56:00 Test Item Value Reference Range Interpretation Comments B/C Ratio (test code = B/C NOT APPLICABLE 6-22 Ratio) [place] 134462-05-09 14:56:00 Test Item Value Reference Range Interpretation Comments Sodium Lvl (test code = Sodium Lvl) 137 135-146 [place] [address]-05-09 14:56:00 Test Item Value Reference Range Interpretation Comments Segs (test code = Segs) 40.2 [place] 134462-05-09 14:56:00 Test Item Value Reference Range Interpretation Comments Potassium Lvl (test code = Potassium 4.0 3.5-5.3 Lvl) [place] 134462-05-09 14:56:00 Test Item Value Reference Range Interpretation Comments Chloride Lvl (test code = Chloride Lvl) 107 98-110 [place] 134462-05-09 14:56:00 Test Item Value Reference Range Interpretation Comments CO2 (test code = CO2) 25 20-32 [place] 134462-05-09 14:56:00 Test Item Value Reference Range Interpretation Comments Calcium Lvl (test code = Calcium Lvl) 9.0 8.6-10.2 [place] 134462-05-09 14:56:00 Test Item Value Reference Range Interpretation Comments Total Protein (test code = Total 7.1 6.1-8.1 Protein) [place] 134462-05-09 14:56:00 Test Item Value Reference Range Interpretation Comments Albumin Lvl (test code = Albumin Lvl) 4.1 3.6-5.1 [place] 134462-05-09 14:56:00 Test Item Value Reference Range Interpretation Comments Globulin (test code = Globulin) 3.0 1.9-3.7 [place] 134462-05-09 14:56:00 Test Item Value Reference Range Interpretation Comments A/G Ratio (test code = A/G Ratio) 1.4 1.0-2.5 [place] 134462-05-09 14:56:00 Test Item Value Reference Range Interpretation Comments Bili Total (test code = Bili Total) 0.5 0.2-1.2 [place] 134462-05-09 14:56:00 Test Item Value Reference Range Interpretation Comments Alk Phos (test code = Alk Phos) 58 31-125 [facility] HospitalJwoaiggTHUCANMCNR3482-31-88 14:56:00 Test Item Value Reference Range Interpretation Comments Lymphocytes (test code = Lymphocytes) 45.8 [place] 134462-05-09 14:56:00 Test Item Value Reference Range Interpretation Comments ASPARTATE TRANSAMINASE (test code = 16 10-30 ASPARTATE TRANSAMINASE) [place] 134462-05-09 14:56:00 Test Item Value Reference Range Interpretation Comments ALANINE AMINOTRANSFERASE (test code = 11 6-29 ALANINE AMINOTRANSFERASE) [place] 386422-05-09 14:56:00 Test Item Value Reference Range Interpretation Comments WBC X 10x3 (test code = WBC X 10x3) 4.7 3.8-10.8 [facility] CenterSjwkcrmFMVJAPHZKK1055-38-18 14:56:00 Test Item Value Reference Range Interpretation Comments RBC X 10x6 (test code = RBC X 10x6) 4.50 3.80-5.10 [place] 386422-05-09 14:56:00 Test Item Value Reference Range Interpretation Comments Hgb (test code = Hgb) 11.3 11.7-15.5 [place] [address]-05-09 14:56:00 Test Item Value Reference Range Interpretation Comments Hct (test code = Hct) 36.2 35.0-45.0 [facility] CenterTiepytsTGXRKJHSPC2840-95-74 14:56:00 Test Item Value Reference Range Interpretation Comments MCV (test code = MCV) 80.4 80.0-100.0 [place] 386422-05-09 14:56:00 Test Item Value Reference Range Interpretation Comments MCH (test code = MCH) 25.1 pg 27.0-33.0 [facility] CenterHowttysEORIJGOUJZ0187-10-60 14:56:00 Test Item Value Reference Range Interpretation Comments MCHC (test code = MCHC) 31.2 32.0-36.0 [facility] CenterAkctahfUALYJVNXGN0130-46-43 14:56:00 Test Item Value Reference Range Interpretation Comments RDW (test code = RDW) 13.9 11.0-15.0 [facility] CenterQratzroOPGNVIDNNE7705-41-67 14:56:00 Test Item Value Reference Range Interpretation Comments Monocytes (test code = Monocytes) 8.5 [place] [address]-05-09 14:56:00 Test Item Value Reference Range Interpretation Comments Platelet (test code = Platelet) 249 140-400 [facility] CenterUgkhecdHYKCLXGUOI6439-86-60 14:56:00 Test Item Value Reference Range Interpretation Comments MPV (test code = MPV) 11.4 7.5-12.5 [place] 386422-05-09 14:56:00 Test Item Value Reference Range Interpretation Comments Neutrophils # (test code = Neutrophils 7899 1389-5978 #) [place] 386422-05-09 14:56:00 Test Item Value Reference Range Interpretation Comments Lymphocytes # (test code = Lymphocytes 2153 850-3900 #) [facility]PwhwftpEAYGBWIAAJ2352-72-44 14:56:00 Test Item Value Reference Range Interpretation Comments Monocytes # (test code = Monocytes #) 400 200-950 [facility] CenterJbjcrolIBFILISPLW5675-93-32 14:56:00 Test Item Value Reference Range Interpretation Comments Eosinophils # (test code = Eosinophils 188 15-500 #) [facility] CenterAoazcyzVEJYLQTQJI6918-44-33 14:56:00 Test Item Value Reference Range Interpretation Comments Basophils # (test code 71 See_Comment [Aut omated message] The = Basophils #) system which generated this result tra nsmitted reference range : <=200. The reference r kailee was not used to int erpret this result as normal/abnormal . [facility] CenterVgkeiieEQJTFYKCJX3824-47-65 14:56:00 Test Item Value Reference Range Interpretation Comments Segs (test code = Segs) 40.2 [facility] CenterSxzpgvhYUJSYMWSYT1066-60-76 14:56:00 Test Item Value Reference Range Interpretation Comments Lymphocytes (test code = Lymphocytes) 45.8 [facility] CenterTiablpzFFBDPQMXKG8324-32-02 14:56:00 Test Item Value Reference Range Interpretation Comments Monocytes (test code = Monocytes) 8.5 [facility] CenterBtafvcqXDNKJJYWBA3519-25-59 14:56:00 Test Item Value Reference Range Interpretation Comments Eosinophils (test code = Eosinophils) 4.0 [facility] CenterZzxdtvpLZBMSPHQIG6552-18-92 14:56:00 Test Item Value Reference Range Interpretation Comments Eosinophils (test code = Eosinophils) 4.0 [facility] Cent[id number] 14:56:00 Test Item Value Reference Range Interpretation Comments Basophils (test code = Basophils) 1.5 [place] 386422-05-09 14:56:00 Test Item Value Reference Range Interpretation Comments Sed Rate (test code = Sed Rate) [facility]2022-05-09 14:56:00 Test Item Value Reference Range Interpretation Comments Vitamin B12 Lvl (test code = Vitamin [phone] B12 Lvl) [facility]2022-05-09 14:56:00 Test Item Value Reference Range Interpretation Comments Glucose Lvl (test code = Glucose Lvl) 80 65-99 [facility] CenterCbtgvfoQZLYLALLWI2215-05-35 14:56:00 Test Item Value Reference Range Interpretation Comments Basophils (test code = Basophils) 1.5 [place] 134462-05-09 14:56:00 Test Item Value Reference Range Interpretation Comments BUN (test code = BUN) 10 7-25 [place] [address]-05-09 14:56:00 Test Item Value Reference Range Interpretation Comments Creatinine Lvl (test code = Creatinine 0.80 0.50-1.10 Lvl) [place] 134462-05-09 14:56:00 Test Item Value Reference Range Interpretation Comments eGFR NON-AFR. ALBANIAN (test code = 92 eGFR NON-AFR. ALBANIAN) [place] 134462-05-09 14:56:00 Test Item Value Reference Range Interpretation Comments eGFR (test code = eGFR 106 ) [place] 134462-05-09 14:56:00 Test Item Value Reference Range Interpretation Comments B/C Ratio (test code = B/C NOT APPLICABLE 6-22 Ratio) [place] 134462-05-09 14:56:00 Test Item Value Reference Range Interpretation Comments Sodium Lvl (test code = Sodium Lvl) 137 135-146 [place] 134462-05-09 14:56:00 Test Item Value Reference Range Interpretation Comments Potassium Lvl (test code = Potassium 4.0 3.5-5.3 Lvl) [place] 134462-05-09 14:56:00 Test Item Value Reference Range Interpretation Comments Chloride Lvl (test code = Chloride Lvl) 107 98-110 [place] 134462-05-09 14:56:00 Test Item Value Reference Range Interpretation Comments CO2 (test code = CO2) 25 20-32 [place] [address]-05-09 14:56:00 Test Item Value Reference Range Interpretation Comments Calcium Lvl (test code = Calcium Lvl) 9.0 8.6-10.2 [place] 386422-05-09 14:56:00 Test Item Value Reference Range Interpretation Comments Sed Rate (test code = Sed Rate) TNP [place] 134462-05-09 14:56:00 Test Item Value Reference Range Interpretation Comments Total Protein (test code = Total 7.1 6.1-8.1 Protein) [place] 134462-05-09 14:56:00 Test Item Value Reference Range Interpretation Comments Albumin Lvl (test code = Albumin Lvl) 4.1 3.6-5.1 [place] [address]-05-09 14:56:00 Test Item Value Reference Range Interpretation Comments Globulin (test code = Globulin) 3.0 1.9-3.7 [place] [address]-05-09 14:56:00 Test Item Value Reference Range Interpretation Comments A/G Ratio (test code = A/G Ratio) 1.4 1.0-2.5 [place] [address]-05-09 14:56:00 Test Item Value Reference Range Interpretation Comments Bili Total (test code = Bili Total) 0.5 0.2-1.2 [place] [address]-05-09 14:56:00 Test Item Value Reference Range Interpretation Comments Alk Phos (test code = Alk Phos) 58 31-125 [place] [address]-05-09 14:56:00 Test Item Value Reference Range Interpretation Comments ASPARTATE TRANSAMINASE (test code = 16 10-30 ASPARTATE TRANSAMINASE) [place] [address]-05-09 14:56:00 Test Item Value Reference Range Interpretation Comments ALANINE AMINOTRANSFERASE (test code = 11 6-29 ALANINE AMINOTRANSFERASE) [address]05-09 14:56:00 Test Item Value Reference Range Interpretation Comments WBC X 10x3 (test code = WBC X 10x3) 4.7 3.8-10.8 [place] [address]-05-09 14:56:00 Test Item Value Reference Range Interpretation Comments RBC X 10x6 (test code = RBC X 10x6) 4.50 3.80-5.10 [place] [address]-05-09 14:56:00 Test Item Value Reference Range Interpretation Comments Hgb (test code = Hgb) 11.3 11.7-15.5 [place] [address]-05-09 14:56:00 Test Item Value Reference Range Interpretation Comments Hct (test code = Hct) 36.2 35.0-45.0 [place] [address]-05-09 14:56:00 Test Item Value Reference Range Interpretation Comments MCV (test code = MCV) 80.4 80.0-100.[address]05-09 14:56:00 Test Item Value Reference Range Interpretation Comments MCH (test code = MCH) 25.1 pg 27.0-33.0 [facility] CenterWoogjjsAICWBHSZEE4315-54-41 14:56:00 Test Item Value Reference Range Interpretation Comments MCHC (test code = MCHC) 31.2 32.0-36.0 [facility] CenterAhmcdnlXOUIVMMARU9406-38-49 14:56:00 Test Item Value Reference Range Interpretation Comments RDW (test code = RDW) 13.9 11.0-15.0 [facility] CenterZtyuxrlXQGZDMIADD5207-05-77 14:56:00 Test Item Value Reference Range Interpretation Comments Platelet (test code = Platelet) 249 140-400 [place] 386422-05-09 14:56:00 Test Item Value Reference Range Interpretation Comments MPV (test code = MPV) 11.4 7.5-12.5 [place] 386422-05-09 14:56:00 Test Item Value Reference Range Interpretation Comments Neutrophils # (test code = Neutrophils 1889 0651-7716 #) [facility] CenterSmhzdikGYLCZKEUHH5862-64-30 14:56:00 Test Item Value Reference Range Interpretation Comments Lymphocytes # (test code = Lymphocytes 2153 850-3900 #) [facility] CenterXjvlexhZJYTTYCBPF1233-39-39 14:56:00 Test Item Value Reference Range Interpretation Comments Monocytes # (test code = Monocytes #) 400 200-950 [place] 386422-05-09 14:56:00 Test Item Value Reference Range Interpretation Comments Eosinophils # (test code = Eosinophils 188 15-500 #) [place] 386422-05-09 14:56:00 Test Item Value Reference Range Interpretation Comments Basophils # (test code 71 See_Comment [Aut omated message] The = Basophils #) system which generated this result tra nsmitted reference range : <=200. The reference r kailee was not used to int erpret this result as normal/abnormal . [place] 386422-05-09 14:56:00 Test Item Value Reference Range Interpretation Comments Segs (test code = Segs) 40.2 [place] 386422-05-09 14:56:00 Test Item Value Reference Range Interpretation Comments Lymphocytes (test code = Lymphocytes) 45.8 [place] [address]-05-09 14:56:00 Test Item Value Reference Range Interpretation Comments Monocytes (test code = Monocytes) 8.5 [place] [address]-05-09 14:56:00 Test Item Value Reference Range Interpretation Comments Eosinophils (test code = Eosinophils) 4.0 [place] [address]-05-09 14:56:00 Test Item Value Reference Range Interpretation Comments Basophils (test code = Basophils) 1.5 [place] [address]-05-09 14:56:00 Test Item Value Reference Range Interpretation Comments Sed Rate (test code = Sed Rate) [facility]2022-05-09 14:56:00 Test Item Value Reference Range Interpretation Comments Vitamin B12 Lvl (test code = Vitamin 429 762-2762 B12 Lvl) [place] 134462-05-09 14:56:00 Test Item Value Reference Range Interpretation Comments Glucose Lvl (test code = Glucose Lvl) 80 65-99 [place] [address]-05-09 14:56:00 Test Item Value Reference Range Interpretation Comments BUN (test code = BUN) 10 7-25 [place] 134462-05-09 14:56:00 Test Item Value Reference Range Interpretation Comments Creatinine Lvl (test code = Creatinine 0.80 0.50-1.10 Lvl) [place] 134462-05-09 14:56:00 Test Item Value Reference Range Interpretation Comments eGFR NON-AFR. ALBANIAN (test code = 92 eGFR NON-AFR. ALBANIAN) [place] [address]-05-09 14:56:00 Test Item Value Reference Range Interpretation Comments eGFR (test code = eGFR 106 ) [place] [address]-05-09 14:56:00 Test Item Value Reference Range Interpretation Comments B/C Ratio (test code = B/C NOT APPLICABLE 6-22 Ratio) [place] 134462-05-09 14:56:00 Test Item Value Reference Range Interpretation Comments Sodium Lvl (test code = Sodium Lvl) 137 135-146 [place] 134462-05-09 14:56:00 Test Item Value Reference Range Interpretation Comments Potassium Lvl (test code = Potassium 4.0 3.5-5.3 Lvl) [place] 134462-05-09 14:56:00 Test Item Value Reference Range Interpretation Comments Chloride Lvl (test code = Chloride Lvl) 107 98-110 [place] 134462-05-09 14:56:00 Test Item Value Reference Range Interpretation Comments CO2 (test code = CO2) 25 20-32 [place] 134462-05-09 14:56:00 Test Item Value Reference Range Interpretation Comments Calcium Lvl (test code = Calcium Lvl) 9.0 8.6-10.2 [place] 134462-05-09 14:56:00 Test Item Value Reference Range Interpretation Comments Total Protein (test code = Total 7.1 6.1-8.1 Protein) [place] 134462-05-09 14:56:00 Test Item Value Reference Range Interpretation Comments Albumin Lvl (test code = Albumin Lvl) 4.1 3.6-5.1 [place] 134462-05-09 14:56:00 Test Item Value Reference Range Interpretation Comments Globulin (test code = Globulin) 3.0 1.9-3.7 [place] 134462-05-09 14:56:00 Test Item Value Reference Range Interpretation Comments A/G Ratio (test code = A/G Ratio) 1.4 1.0-2.5 [place] [address]-05-09 14:56:00 Test Item Value Reference Range Interpretation Comments Bili Total (test code = Bili Total) 0.5 0.2-1.2 [place] 134462-05-09 14:56:00 Test Item Value Reference Range Interpretation Comments Alk Phos (test code = Alk Phos) 58 31-125 [place] 134462-05-09 14:56:00 Test Item Value Reference Range Interpretation Comments ASPARTATE TRANSAMINASE (test code = 16 10-30 ASPARTATE TRANSAMINASE) [place] 134462-05-09 14:56:00 Test Item Value Reference Range Interpretation Comments ALANINE AMINOTRANSFERASE (test code = 11 6-29 ALANINE AMINOTRANSFERASE) [place] 386422-05-09 14:56:00 Test Item Value Reference Range Interpretation Comments WBC X 10x3 (test code = WBC X 10x3) 4.7 3.8-10.8 [place] 386422-05-09 14:56:00 Test Item Value Reference Range Interpretation Comments RBC X 10x6 (test code = RBC X 10x6) 4.50 3.80-5.10 [place] 386422-05-09 14:56:00 Test Item Value Reference Range Interpretation Comments Hgb (test code = Hgb) 11.3 11.7-15.5 [facility] CenterDfdbmzfGCNFCRIDDJ7096-67-94 14:56:00 Test Item Value Reference Range Interpretation Comments Hct (test code = Hct) 36.2 35.0-45.0 [facility] CenterRfttotoHCDFDBNEYK3583-21-98 14:56:00 Test Item Value Reference Range Interpretation Comments MCV (test code = MCV) 80.4 80.0-100.0 [place] 386422-05-09 14:56:00 Test Item Value Reference Range Interpretation Comments MCH (test code = MCH) 25.1 pg 27.0-33.0 [facility] CenterQyqspabFWPVEMWNQK5027-56-47 14:56:00 Test Item Value Reference Range Interpretation Comments MCHC (test code = MCHC) 31.2 32.0-36.0 [facility] CenterRerqetyBALWLSPCCM6888-59-38 14:56:00 Test Item Value Reference Range Interpretation Comments RDW (test code = RDW) 13.9 11.0-15.0 [facility] CenterNiznfxiUBCEBGJITT6867-09-49 14:56:00 Test Item Value Reference Range Interpretation Comments Platelet (test code = Platelet) 249 140-400 [facility] CenterRrmlkicDGKZXBDTOM0932-01-59 14:56:00 Test Item Value Reference Range Interpretation Comments MPV (test code = MPV) 11.4 7.5-12.5 [facility] CenterLylekwqCOXCKNLFEN8753-98-43 14:56:00 Test Item Value Reference Range Interpretation Comments Neutrophils # (test code = Neutrophils 1889 7628-3180 #) [facility] CenterJwvvpmtNPDVSOKLDI4795-34-83 14:56:00 Test Item Value Reference Range Interpretation Comments Lymphocytes # (test code = Lymphocytes 2153 850-3900 #) [facility] CenterMlbkjhkPJEARYEYHY0369-33-96 14:56:00 Test Item Value Reference Range Interpretation Comments Monocytes # (test code = Monocytes #) 400 200-950 [place] 386422-05-09 14:56:00 Test Item Value Reference Range Interpretation Comments Eosinophils # (test code = Eosinophils 188 15-500 #) [place] 386422-05-09 14:56:00 Test Item Value Reference Range Interpretation Comments Basophils # (test code 71 See_Comment [Aut omated message] The = Basophils #) system which generated this result tra nsmitted reference range : <=200. The reference r kailee was not used to int erpret this result as normal/abnormal . [facility] [id number] 01:36:44 Test Item Value Reference Range Interpretation Comments Segs Man (test code = Segs 15.0 % 36.0-70.0 L Man) Band Man (test code = Band 0.0 % 0.0-6.0 Man) Lymph Man (test code = Lymph 77.0 % 12.0-44.0 H Man) Monocyte Man (test code = 5.0 % 0.0-11.0 Monocyte Man) Eos Man (test code = Eos Man) 3.0 % 0.0-7.0 Basophil Man (test code = 0.0 0.0-2.0 Basophil Man) Neut Man Abs (test code = 0.8 x10 1.6-7.4 L Neut Man Abs) Lymph Man Abs (test code = 4.2 x10 0.5-4.6 Lymph Man Abs) Monona Man Abs (test code = 0.3 x10 0.0-1.2 Monona Man Abs) Eos Man Abs (test code = Eos 0.16 x10 0.00-0.74 Man Abs) Baso Man Abs (test code = 0.00 x10 0.00-0.21 Baso Man Abs) RBC Morph (test code = RBC Normal Normal Morph) Plt Estimation (test code = Normal Normal Plt Estimation) Platelet Morphology (test Large platelets Normal A code = Platelet Morphology) IG [id number] 00:35:19 Test Item Value Reference Range Interpretation Comments IG (test code = IG) 0.4 % 0.0-5.0 IG Abs (test code = IG Abs) 0 x10 N Complete Blood Count with Qinooefinjvj5422-94-81 00:35:18 Test Item Value Reference Range Interpretation Comments WBC (test code = WBC) 5.5 x10 4.4-10.5 RBC (test code = RBC) 4.33 x10 3.75-5.20 Hgb (test code = Hgb) 11.3 g/dL 12.2-14.8 L Hct (test code = Hct) 36.9 % 36.5-44.4 MCV (test code = MCV) 85.20 fL 80.00-100.00 MCHC (test code = 30.60 g/dL 32.00-37.50 L MCHC) RDW CV (test code = 13.7 % 11.5-14.5 RDW CV) MCH (test code = MCH) 26.1 pg 27.0-32.5 L Platelets (test code = 317.0 x10 140.0-440.0 Platelets) MPV (test code = MPV) 11.1 fL N Slide Review (test Manual Auto A Result cr eated by code = Slide Review) GL_SJM_ SLIDE_REV_AUTO GL_SJM_XN_RFLX nRBC (test code = 0 N nRBC) NRBC Abs (test code = 0.00 x10 N NRBC Abs) Pos Diff XN (test code A N = Pos Diff XN) IPF (test code = IPF) 0 % N Thyroid Stimulating [id number] 00:09:42 Test Item Value Reference Range Interpretation Comments TSH (test code = TSH) 1.890 mIU/mL 0.270-4.200 Comprehensive Metabolic [id number] 00:05:00 Test Item Value Reference Range Interpretation Comments Sodium Level (test code = Sodium 139.0 mmol/L 135.0-145.0 Level) Potassium Level (test code = 4.1 mmol/L 3.5-5.1 Potassium Level) Chloride Level (test code = 103 mmol/L 98-105 Chloride Level) CO2 (test code = CO2) 26 mmol/L 22-29 Anion Gap (test code = Anion 10 mmol/L 7-16 Gap) BUN (test code = BUN) 9.60 mg/dL 6.00-20.00 Creatinine Level (test code = 0.90 mg/dL 0.50-0.90 Creatinine Level) BUN/Creat Ratio (test code = 11 N BUN/Creat Ratio) Glucose Level (test code = 87 mg/dL 70-115 Glucose Level) Calcium Level (test code = 9.4 mg/dL 8.3-10.5 Calcium Level) Alk Phos (test code = Alk Phos) 71 U/L 35-104 Bilirubin Total (test code = 0.2 mg/dL 0.1-0.9 Bilirubin Total) Albumin Level (test code = 4.2 g/dL 3.5-5.2 Albumin Level) Protein Total (test code = 7.0 g/dL 6.4-8.3 Protein Total) ALT (test code = ALT) 10 U/L 1-33 AST (test code = AST) 17 U/L 1-32 Globulin (test code = Globulin) 2.8 g/dL 2.9-3.1 L A/G Ratio (test code = A/G 1.5 ratio N Ratio) Lipid [id number] 00:05:00 Test Item Value Reference Range Interpretation Comments Cholesterol Total 173 mg/dL 0-200 RISK OF HE ART (test code = DISEASEPublishe d by Cholesterol Total) [place] Sudha lyte Optimal Borderl ine Increased RiskC HOL <200 200-239 >240TRI G <150 150-199 >200HDL Male >60 <40HDL Fema le >60 <50LDL <100 130 -159 >160LDL [facility] 100-129 Triglycerides (test 42 mg/dL 9-200 code = Triglycerides) HDL (test code = HDL) 66 mg/dL 50-60 H Chol/HDL (test code = 2.6 ratio 0.0-4.4 Chol/HDL) Comprehensive Metabolic [id number] 00:05:00 Test Item Value Reference Range Interpretation Comments Sodium Level (test 139.0 mmol/L 135.0-145.0 code = Sodium Level) Potassium Level 4.1 mmol/L 3.5-5.1 (test code = Potassium Level) Chloride Level (test 103 mmol/L 98-105 code = Chloride Level) CO2 (test code = 26 mmol/L 22-29 CO2) Anion Gap (test code 10 mmol/L 7-16 = Anion Gap) BUN (test code = 9.60 mg/dL 6.00-20.00 BUN) Creatinine Level 0.90 mg/dL 0.50-0.90 (test code = Creatinine Level) BUN/Creat Ratio 11 N (test code = BUN/Creat Ratio) Glucose Level (test 87 mg/dL 70-115 code = Glucose Level) Calcium Level (test 9.4 mg/dL 8.3-10.5 code = Calcium Level) Alk Phos (test code 71 U/L 35-104 = Alk Phos) Bilirubin Total 0.2 mg/dL 0.1-0.9 (test code = Bilirubin Total) Albumin Level (test 4.2 g/dL 3.5-5.2 code = Albumin Level) Protein Total (test 7.0 g/dL 6.4-8.3 code = Protein Total) ALT (test code = 10 U/L 1-33 ALT) AST (test code = 17 U/L 1-32 AST) Globulin (test code 2.8 g/dL 2.9-3.1 L = Globulin) A/G Ratio (test code 1.5 ratio N = A/G Ratio) eGFR AA (test code = >60 N eGFR (e stimated eGFR AA) mL/min/1.73 m2 Glomerular Filtration Rate ) is an estimated va lue, calculated from the patient's serum creatinine usin g the MDRD equation. It is NOT the patient 's actual GFR. The eGFR provides a more clinically usef ul measure of kidn ey disease than se rum creatinine alone.This calculation brooks es sex and race in to account, if the information is provided. If th e race is not provided, and t he patient is -Ericka n, multiply by 1.2 12. If sex is not provided, and t he patient is fema le, multiply by 0.7 42. Results for pat ients <18 years of ag e have not been validated by th e MDRD study and should be interpreted wit h caution. eGFR R esult Interpretation: eGFR > or = 60 is in the Normal RangeeGF R < 60 may mean kid kamala diseaseeGFR < 1 5 may mean kidney failure Rang es recommended by the National Kidney Foundation, http://nkdep.ni h.gov Comprehensive Metabolic [id number] 00:05:00 Test Item Value Reference Range Interpretation Comments Sodium Level (test 139.0 mmol/L 135.0-145.0 code = Sodium Level) Potassium Level 4.1 mmol/L 3.5-5.1 (test code = Potassium Level) Chloride Level (test 103 mmol/L 98-105 code = Chloride Level) CO2 (test code = 26 mmol/L 22-29 CO2) Anion Gap (test code 10 mmol/L 7-16 = Anion Gap) BUN (test code = 9.60 mg/dL 6.00-20.00 BUN) Creatinine Level 0.90 mg/dL 0.50-0.90 (test code = Creatinine Level) BUN/Creat Ratio 11 N (test code = BUN/Creat Ratio) Glucose Level (test 87 mg/dL 70-115 code = Glucose Level) Calcium Level (test 9.4 mg/dL 8.3-10.5 code = Calcium Level) Alk Phos (test code 71 U/L 35-104 = Alk Phos) Bilirubin Total 0.2 mg/dL 0.1-0.9 (test code = Bilirubin Total) Albumin Level (test 4.2 g/dL 3.5-5.2 code = Albumin Level) Protein Total (test 7.0 g/dL 6.4-8.3 code = Protein Total) ALT (test code = 10 U/L 1-33 ALT) AST (test code = 17 U/L 1-32 AST) Globulin (test code 2.8 g/dL 2.9-3.1 L = Globulin) A/G Ratio (test code 1.5 ratio N = A/G Ratio) eGFR AA (test code = >60 N eGFR (e stimated eGFR AA) mL/min/1.73 m2 Glomerular Filtration Rate ) is an estimated va lue, calculated from the patient's serum creatinine usin g the MDRD equation. It is NOT the patient 's actual GFR. The eGFR provides a more clinically usef ul measure of kidn ey disease than se rum creatinine alone.This calculation brooks es sex and race in to account, if the information is provided. If th e race is not provided, and t he patient is -Ericka n, multiply by 1.2 12. If sex is not provided, and t he patient is fema le, multiply by 0.7 42. Results for pat ients <18 years of ag e have not been validated by th e MDRD study and should be interpreted wit h caution. eGFR R esult Interpretation: eGFR > or = 60 is in the Normal RangeeGF R < 60 may mean kid kamala diseaseeGFR < 1 5 may mean kidney failure Rang es recommended by the National Kidney Foundation, http://nkdep.ni h.gov eGFR Non-AA (test >60.00 N eGFR (jose mated code = eGFR Non-AA) mL/min/1.73 m2 Glomer ular Filtration Rate ) is an estimated va lue, calculated from the patient's serum creatinine usin g the MDRD equation. It is NOT the patient 's actual GFR. The eGFR provides a more clinically usef ul measure of kidn ey disease than se rum creatinine alone.This calculation brooks es sex and race in to account, if the information is provided. If th e race is not provided, and t he patient is -Ericka n, multiply by 1.2 12. If sex is not provided, and t he patient is fema le, multiply by 0.7 42. Results for pat ients <18 years of ag e have not been validated by th e MDRD study and should be interpreted wit h caution. eGFR R esult Interpretation: eGFR > or = 60 is in the Normal RangeeGF R < 60 may mean kid kamala diseaseeGFR < 1 5 may mean kidney failure Rang es recommended by the National Kidney Foundation, http://nkdep.ni h.gov Lipid [id number] 00:05:00 Test Item Value Reference Range Interpretation Comments Cholesterol Total 173 mg/dL 0-200 RISK OF HE ART (test code = DISEASEPublishe d by Cholesterol Total) [employer] Sudha lyte Optimal Borderl ine Increased RiskC HOL <200 200-239 >240TRI G <150 150-199 >200HDL Male >60 <40HDL Fema le >60 <50LDL <100 130 -159 >160LDL Near op timal is 100-129 Triglycerides (test 42 mg/dL 9-200 code = Triglycerides) HDL (test code = HDL) 66 mg/dL 50-60 H LDL (test code = LDL) 98 mg/dL 0-130 The eq uation being used in this calcula tion is LDL = (Chol - H DL) - (Trig / 5) VLDL (test code = 8 mg/dL 5-40 The equati on being used VLDL) in this calcula tion is VLDL = Trig / 5 Chol/HDL (test code = 2.6 ratio 0.0-4.4 Chol/HDL) LDL/HDL Ratio (test 1 N The equa tion being used code = LDL/HDL Ratio) in thi s calculation is LDL/HDL Ratio=L DL Calc/HDL Chol Notes Date/Time Note Provider Source 2022-12-07 Formatting of this note might be differe nt from the original. Alma SJose Triplett [facility] 11:26:41-00:00 ADALGISA cancelled due to patient stating she has contrast allergy. Patient to contact ordering MD for pre-procedure 24hr pre-medication. RN 2021-10-16 PROCEDURE INFORMATION: CATHY montanez 07:00:00-00:00 Exam: MR Head Without Contrast Exam date and time: 10/16/2021 6:56 AM Age: 41 years old Clinical indication: Migraine, unspecified, not intractable, without status migrainosus; Additional info: /[id number] m igraine, unspecified, not intractable, without status migrainosus TECHNIQUE: Imaging protocol: MR of the head without contras t. COMPARISON: No relevant prior studies available. FINDINGS: Brain: No acute infarct. No hemorrhage. No signi ficant white matter disease. Cerebral ventricles: Normal. No ventriculomegaly . Bones/joints: Unremarkable. Paranasal sinuses: Normal as visualized. No acut e sinusitis. Mastoid air cells: Normal as visualized. No mast oid effusion. Orbital cavities: Unremarkable. Soft tissues: Unremarkable. IMPRESSION: Unremarkable MRI of the brain. Julien Cervantes MD On 10/16/2021 08:21:21; [id number] 1LK7 2021-10-16 PROCEDURE INFORMATION: CATHY montanez 07:00:00-00:00 Exam: MR Head Without Contrast Exam date and time: 10/16/2021 6:56 AM Age: 41 years old Clinical indication: Migraine, unspecified, not intractable, without status migrainosus; Additional info: /g43.909 m igraine, unspecified, not intractable, without status migrainosus TECHNIQUE: Imaging protocol: MR of the head without contras t. COMPARISON: No relevant prior studies available. FINDINGS: Brain: No acute infarct. No hemorrhage. No signi ficant white matter disease. Cerebral ventricles: Normal. No ventriculomegaly . Bones/joints: Unremarkable. Paranasal sinuses: Normal as visualized. No acut e sinusitis. Mastoid air cells: Normal as visualized. No mast oid effusion. Orbital cavities: Unremarkable. Soft tissues: Unremarkable. IMPRESSION: Unremarkable MRI of the brain. Julien Cervantes MD On 10/16/2021 08:21:21; [id number] 1LK7 2021-10-16 PROCEDURE INFORMATION: BRII montanez 07:00:00-00:00 Exam: MR Head Without Contrast Exam date and time: 10/16/2021 6:56 AM Age: 41 years old Clinical indication: Migraine, unspecified, not intractable, without status migrainosus; Additional info: /g43.909 m igraine, unspecified, not intractable, without status migrainosus TECHNIQUE: Imaging protocol: MR of the head without contras t. COMPARISON: No relevant prior studies available. FINDINGS: Brain: No acute infarct. No hemorrhage. No signi ficant white matter disease. Cerebral ventricles: Normal. No ventriculomegaly . Bones/joints: Unremarkable. Paranasal sinuses: Normal as visualized. No acut e sinusitis. Mastoid air cells: Normal as visualized. No mast oid effusion. Orbital cavities: Unremarkable. Soft tissues: Unremarkable. IMPRESSION: Unremarkable MRI of the brain. Julien Cervantes MD On 10/16/2021 08:21:21; [id number] 1LK7 2021-10-16 PROCEDURE INFORMATION: BRII montanez 07:00:00-00:00 Exam: MR Head Without Contrast Exam date and time: 10/16/2021 6:56 AM Age: 41 years old Clinical indication: Migraine, unspecified, not intractable, without status migrainosus; Additional info: /g43.909 m igraine, unspecified, not intractable, without status migrainosus TECHNIQUE: Imaging protocol: MR of the head without contras t. COMPARISON: No relevant prior studies available. FINDINGS: Brain: No acute infarct. No hemorrhage. No signi ficant white matter disease. Cerebral ventricles: Normal. No ventriculomegaly . Bones/joints: Unremarkable. Paranasal sinuses: Normal as visualized. No acut e sinusitis. Mastoid air cells: Normal as visualized. No mast oid effusion. Orbital cavities: Unremarkable. Soft tissues: Unremarkable. IMPRESSION: Unremarkable MRI of the brain. Julien Cervantes MD On 10/16/2021 08:21:21; [id number] 1LK7 2021-10-16 PROCEDURE INFORMATION: BRII montanez 07:00:00-00:00 Exam: MR Head Without Contrast Exam date and time: 10/16/2021 6:56 AM Age: 41 years old Clinical indication: Migraine, unspecified, not intractable, without status migrainosus; Additional info: /g43.909 m igraine, unspecified, not intractable, without status migrainosus TECHNIQUE: Imaging protocol: MR of the head without contras t. COMPARISON: No relevant prior studies available. FINDINGS: Brain: No acute infarct. No hemorrhage. No signi ficant white matter disease. Cerebral ventricles: Normal. No ventriculomegaly . Bones/joints: Unremarkable. Paranasal sinuses: Normal as visualized. No acut e sinusitis. Mastoid air cells: Normal as visualized. No mast oid effusion. Orbital cavities: Unremarkable. Soft tissues: Unremarkable. IMPRESSION: Unremarkable MRI of the brain. Julien Cervantes MD On 10/16/2021 08:21:21; [id number] 1LK7
--- NOTE | 2022-12-14 08:17 | EDPHYS ---
Physician Documentation [facility] Name: Mamta Eldridge Age: 42 yrs Sex: Female : 1980 Arrival Date: 12/14/2022 Time: 07:45 Bed 19 Private MD: Alma Pedroza ED Physician Piyush Kaufman HPI: 12/14 08:10 This 42 yrs old Black Female presents to ER via Ambulatory with complaints of Back rn Pain, Leg Pain. 08:10 The patient presents with pain that is chronic. The symptoms are located in the low rn back. Onset: The symptoms/episode began/occurred at an unknown time. The pain radiates to the right leg. Associated signs and symptoms: Pertinent positives: none Pertinent negatives: dysuria, fever, incontinence, urinary retention, weakness. Modifying factors: The patient symptoms are alleviated by nothing, the patient symptoms are aggravated by movement, standing, walking. Severity of symptoms: At their worst the symptoms were moderate, in the emergency department the symptoms are unchanged. The patient has experienced similar episodes in the past, chronically. The patient has not recently seen a physician. Pt reports back pain "for a long time", worse over last week or so, also has right knee problems and arthritis, takes meloxicam. No fever. NO injury. No weakness/numbness/tingling. NO bowel or bladder problems. Works at [employer] and on feet all day. Has had a recent MRI that showed lumbar disc herniation but no acute surgical findings, has even seen rehabilitation construction specialist. . Historical: - Allergies: 07:57 HYDROCODONE; iw 07:57 Morphine; iw - Home Meds: 07:57 metoprolol tartrate 25 mg Oral tablet 2 times per day [Active]; iw - PMHx: 07:57 Anemia; Heart Murmur; Migraines; iw - PSHx: 07:57 None; iw - Immunization history:: Client reports receiving the 2nd dose of the Covid vaccine. - Social history:: Smoking status: Patient denies any tobacco usage or history of. - Family history:: not pertinent. - Hospitalizations: : No recent hospitalization is reported. ROS: 08:10 Constitutional: Negative for fever, chills, and weight loss, Cardiovascular: Negative rn for chest pain, palpitations, and edema, Respiratory: Negative for shortness of breath, cough, wheezing, and pleuritic chest pain, Abdomen/GI: Negative for abdominal pain, nausea, vomiting, diarrhea, and constipation, Back: + lower back pain MS/Extremity: Negative for injury and deformity, Skin: Negative for injury, rash, and discoloration, Neuro: Negative for headache, weakness, numbness, tingling, and seizure. Exam: 08:10 Constitutional: This is a well developed, well nourished patient who is awake, alert, rn and in no acute distress. Cardiovascular: Regular rate and rhythm. No pulse deficits. Back: No spinal tenderness. No costovertebral tenderness. Full range of motion. Skin: Warm, dry, no signs of cellulitis MS/ Extremity: Pulses equal, no cyanosis. Neurovascular intact. Full, normal range of motion. Equal circumference. varus deformity of feet. Vital Signs: 07:56 BP 120 / 68; Pulse 72; Resp 16; Pulse Ox 100% on R/A; Weight 127.01 kg; Height 5 ft. 10 iw in. ; Pain 10/10; 08:23 BP 116 / 75; Pulse 69; Resp 16; Pulse Ox 100% ; db 07:56 Body Mass Index 40.18 (127.01 kg, 177.8 cm) iw 07:56 Pain Scale: Adult iw MDM: 07:54 Patient medically screened. rn 08:10 Differential diagnosis: arthritis, chronic back pain, Osteoarthritis radiculopathy, rn radiated pain, varus deformity of feet. Data reviewed: vital signs, nurses notes, and as a result, I will discharge patient. Counseling: I had a detailed discussion with the patient and/or guardian regarding: the historical points, exam findings, and any diagnostic results supporting the discharge/admit diagnosis, the need for outpatient follow up, to return to the emergency department if symptoms worsen or persist or if there are any questions or concerns that arise at home. Special discussion: I discussed with the patient/guardian in detail that at this point there is no indication for admission to the hospital. It is understood, however, that if the symptoms persist or worsen the patient needs to return immediately for re-evaluation. Special discussion: Based on the history and exam findings, there is no indication for further emergent testing or inpatient evaluation. I discussed with the patient/guardian the need to see the back specialist for further evaluation of the symptoms. I discussed with the patient/guardian the need to see the primary care provider for further evaluation of the symptoms. ED course: Pt with recent MRI, no trauma, no new symptoms, recommend return visit with her back specialist and recommended orthotic insoles to correct varus angulation of feet which may improve her gait and decrease stress on back/knees. . Administered Medications: No medications were administered Disposition Summary: 12/14/22 08:16 Discharge Ordered Location: Home rn Problem: chronic rn Symptoms: have improved rn Condition: Stable rn Diagnosis - Low back pain rn - Radiculopathy, lumbar region rn Followup: rn - With: Private Physician - When: - Reason: Recheck today's complaints, Re-evaluation by your physician Discharge Instructions: - Discharge Summary Sheet rn - Chronic Back Pain rn - Lumbosacral Radiculopathy rn - Musculoskeletal Pain rn Forms: - Medication Reconciliation Form rn - Thank You Letter rn - Antibiotic actuarial internship - Prescription Opioid Use rn - Patient Portal Instructions rn Prescriptions: - Cyclobenzaprine 10 mg Oral Tablet - take 1 tablet by ORAL route every 8 hours As needed; 12 tablet; Refills: 0, rn Product Selection Permitted - Medrol ([place]) 4 mg Oral Tablets, Dose Pack - take 1 tablet by ORAL route as directed - follow package instructions; 1 rn packet; Refills: 0, Product Selection Permitted Signatures: Diana Alves RN RN Piyush Clemons MD MD rn
--- NOTE | 2022-12-14 08:17 | ER ---
Nurse's Notes [facility] Name: Mamta Eldridge Age: 42 yrs Sex: Female : 1980 Arrival Date: 12/14/2022 Time: 07:45 Bed 19 Private MD: Alma Pedroza Diagnosis: Low back pain;Radiculopathy, lumbar region Presentation: 12/14 07:56 Chief complaint: Patient states: has herniated disc and chronic back pain, pain is iw getting worse, also has right flank pain X 1 week and her right foot and heel have been hurting for a month. Coronavirus screen: At this time, the client does not indicate any symptoms associated with coronavirus-19. Ebola Screen: Patient negative for fever greater than or equal to 101.5 degrees Fahrenheit, and additional compatible Ebola Virus Disease symptoms Patient denies exposure to infectious person. Patient denies travel to an Ebola-affected area in the 21 days before illness onset. No symptoms or risks identified at this time. Initial Sepsis Screen: Does the patient meet any 2 criteria? No. Patient's initial sepsis screen is negative. Does the patient have a suspected source of infection? No. Patient's initial sepsis screen is negative. Risk Assessment: Do you want to hurt yourself or someone else? Patient reports no desire to harm self or others. Onset of symptoms was October 2022. 07:56 Method Of Arrival: Ambulatory iw 07:56 Acuity: ADALGISA 3 iw Historical: - Allergies: 07:57 HYDROCODONE; iw 07:57 Morphine; iw - Home Meds: 07:57 metoprolol tartrate 25 mg Oral tablet 2 times per day [Active]; iw - PMHx: 07:57 Anemia; Heart Murmur; Migraines; iw - PSHx: 07:57 None; iw - Immunization history:: Client reports receiving the 2nd dose of the Covid vaccine. - Social history:: Smoking status: Patient denies any tobacco usage or history of. - Family history:: not pertinent. - Hospitalizations: : No recent hospitalization is reported. Screenin:23 [facility] ED Fall Risk Assessment (Adult) History of falling in the last 3 months, db including since admission No falls in past 3 months (0 pts) Confusion or Disorientation No (0 pts) Intoxicated or Sedated No (0 pts) Impaired Gait No (0 pts) Mobility Assist Device Used No (0 pt) Altered Elimination No (0 pt) Score/Fall Risk Level 0 - 2 = Low Risk Oriented to surroundings, Maintained a safe environment. Abuse screen: Denies threats or abuse. Denies injuries from another. Nutritional screening: No deficits noted. Tuberculosis screening: No symptoms or risk factors identified. Assessment: 08:12 Reassessment: Patient appears in no apparent distress at this time. Patient and/or db family updated on plan of care and expected duration. Pain level reassessed. Patient is alert, oriented x 3, equal unlabored respirations, skin warm/dry/pink. 08:23 General: Appears in no apparent distress. Behavior is calm, cooperative. Pain: db Complains of pain in back and right leg. Neuro: Level of Consciousness is awake, alert, obeys commands, Oriented to person, place, time, situation. Respiratory: Airway is patent Respiratory effort is even, unlabored, Respiratory pattern is regular, symmetrical. Vital Signs: 07:56 BP 120 / 68; Pulse 72; Resp 16; Pulse Ox 100% on R/A; Weight 127.01 kg; Height 5 ft. 10 iw in. ; Pain 10/10; 08:23 BP 116 / 75; Pulse 69; Resp 16; Pulse Ox 100% ; db 07:56 Body Mass Index 40.18 (127.01 kg, 177.8 cm) iw 07:56 Pain Scale: Adult iw ED Course: 07:46 Patient arrived in ED. am2 07:46 Alma Pedroza FNP-C is Private Physician. am2 07:54 Piyush Kaufman MD is Attending Physician. rn 07:57 Triage completed. iw 07:57 Arm band placed on. iw 08:12 Mamta Block, VICTOR M is Primary Nurse. db 08:23 Patient has correct armband on for positive identification. Provided Education on: db DISCHARGE. 08:23 No provider procedures requiring assistance completed. Patient did not have IV access db during this emergency room visit. Administered Medications: No medications were administered Medication: 08:23 VIS not applicable for this client. db Outcome: 08:16 Discharge ordered by . rn 08:23 Condition: stable db 08:23 Discharge instructions given to patient, Instructed on discharge instructions, follow up and referral plans. Prescriptions given X 2. 08:25 Discharged to home ambulatory. db 08:25 Patient left the ED. db Signatures: Diana Alves RN RN iw Nieto, Roman, MD MD rn Moreno, Amanda am2 Benton, Danielle, RN RN db
[2022-12-14 08:29] VITALS: O2SAT 100
[2022-12-14 08:31] VITALS: BP 116/75
== END 2022-12-14 08:25 | disposition home or self-care (01) ==
LOC: ER 07:45
DX: M54.16 Radiculopathy, lumbar region (principal); Z88.5 Allergy status to narcotic agent

== ENCOUNTER 2023-08-28 17:41 | Emergency (ER) | payer BC ==
[2023-08-28] MEDS ORDERED: NA CHLORIDE 0.9% 1,000 ML ONE (18:23)
[2023-08-28] MEDS ORDERED: KETOROLAC 30 MG/ML INJ ONE (18:23)
[2023-08-28] MEDS ORDERED: dexAMETHasone 10 MG/ML VIAL ONE (18:23)
[2023-08-28 18:25] LABS: Absolute Eosinophils 0.2 K/uL (0-0.5); Absolute Lymphocytes (CBC) 2.5 K/uL (0.7-4.9); Absolute Monocytes 0.5 K/uL (0.1-1.3); Absolute Neutrophil 1.8 K/uL (1.8-8.0); Basophils % 0.5 % (0-1.3); Eosinophils % 4.5 % (0-4.4); Hematocrit 34.6 % (36.0-45.0); Hemoglobin 11.3 g/dL (12.0-15.0); Lymphocytes % 48.8 % (15.3-44.8); MCHC 32.5 g/dL (32.0-36.0); MPV 8.4 fL (7.6-11.3); Monocytes % 10.3 % (3.3-12.3); Neutrophils % 35.9 % (41.7-73.7); Nucleated Red Blood Cells % 0.2 % (0-0); Platelets 219 thou/uL (152-406); RBC Red Blood Cell Count 4.17 M/uL (3.86-4.86)
[2023-08-28 18:41] LABS: Albumin 3.5 g/dL (3.4-5.0); Bilirubin Total 0.4 mg/dL (0.2-1.0); Globulin 3.5 g/dL (2.3-3.5)
--- NOTE | 2023-08-28 19:42 | RAD REPORT ---
EXAM DESCRIPTION: CT - Stone Protocol - 08/28/2023 7:18 pm CLINICAL HISTORY: right flank pain COMPARISON: Transvaginal Study Probe dated 07/18/2018 TECHNIQUE: Thin cut axial CT imaging of the abdomen and pelvis was performed without IV contrast. Mu ltiplanar reformats were generated and reviewed. All CT scans are performed using dose optimization technique as appropriate and may include automated exposure control or mA/KV adjustment according to patient size. FINDINGS: No suspicious findings in the lung bases. The liver, spleen, adrenal glands, and pancreas show no suspicious findings. Gallbladder and biliary tree are also without suspicious finding. Symmetric renal contour, without suspicious parenchymal findings within limits of noncontrast techniq ue. No evidence of radiopaque calculi or hydroureteronephrosis. No dilated bowel loops or bowel wall thickening. No free air, free fluid or inflammatory stranding. N o hernia, mass or bulky lymphadenopathy. Retroflexed uterus. Lobulated marginally calcified 2.1 x 1.3 cm structure along the posterior adventitia near the fundus may represent calcified subserosal fibro ids. The urinary bladder is without significant finding. No suspicious bony findings. IMPRESSION: No acute intra-abdominal process. Incidental findings as above.
[2023-08-28] MEDS ORDERED: FENTANYL CITR 100 MCG/2 ML ONE (19:56)
[2023-08-28] MEDS ORDERED: METHOCARBAMOL 1,000 MG/10 ML VIAL ONE (19:56)
[2023-08-28] MEDS ORDERED: LIDOCAINE 4% PATCH ONE (19:57)
[2023-08-28] MEDS ORDERED: NA CHLORIDE 0.9% 100 ML ONE (19:57)
[2023-08-28 20:43] LABS: Specific Gravity 1.022 (1.005-1.030); Sqamous Epithelial 20-50 /HPF (None Seen); Urine Bacteria <20 /HPF (<20); Urine Bilirubin 1+ (Negative); Urine Blood Negative (Negative); Urine Clarity Turbid (Clear); Urine Color Light-Yellow (Yellow); Urine Culture Reflex Order NOT NEEDED; Urine Glucose NEGATIVE (Negative); Urine Ketones NEGATIVE (Negative); Urine Microscopic Reflex YN ORDER UMIC; Urine Mucus Slight /HPF (None Seen); Urine Nitrite NEGATIVE (Negative); Urine Protein NEGATIVE (Negative); Urine Urobilinogen Normal (Normal)
--- NOTE | 2023-08-28 22:25 | EDPHYS ---
Physician Documentation [facility] Name: Mamta Eldridge Age: 43 yrs Sex: Female : 1980 Arrival Date: 08/28/2023 Time: 17:41 Bed 3 Private MD: ED Physician Ismael Callahan HPI: 08/27 18:10 This 43 yrs old Black Female presents to ER via Wheelchair with complaints of Back Pain.cp 18:10 The patient presents with pain that is acute, with no known mechanism of injury. The cp symptoms are located in the right mid and right low and right flank. 18:10 Onset: The symptoms/episode began/occurred 3 day(s) ago. cp 18:10 Associated signs and symptoms: Pertinent negatives: abdominal pain, dysuria, fever, cp hematuria, incontinence, numbness, urinary retention, weakness. The problem was sustained from unknown cause. 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 Pain worse over past 2-3 days. Denies injury. Historical: - Allergies: 17:50 HYDROCODONE; aa5 17:50 Morphine; aa5 - PMHx: 17:50 Anemia; Heart Murmur; Migraines; aa5 - Immunization history:: Adult Immunizations unknown. - Infectious Disease History:: Denies. - Social history:: Smoking status: unknown. ROS: 18:15 Constitutional: Negative for body aches, chills, fever, poor PO intake, cp 18:15 Eyes: Negative for injury, pain, redness, and discharge, cp 18:15 Neck: Negative for pain with movement, pain at rest, stiffness, 18:15 Cardiovascular: Negative for chest pain, edema, palpitations, 18:15 Respiratory: Negative for cough, shortness of breath, wheezing, 18:15 Abdomen/GI: Negative for abdominal pain, vomiting, diarrhea, constipation, bowel incontinence, 18:15 Back: Positive for pain at rest, pain with movement, of the right mid back and right flank, 18:15 : Negative for injury or acute deformity, hematuria, bladder incontinence, 18:15 All other systems are negative, Exam: 18:20 Constitutional: The patient appears in no acute distress, alert, awake, cp non-diaphoretic, non-toxic, well developed, well nourished, obese, uncomfortable, 18:20 Head/Face: Normocephalic, atraumatic. cp 18:20 Eyes: Periorbital structures: appear normal, Conjunctiva: normal, no exudate, no injection, Sclera: no appreciated abnormality, Lids and lashes: appear normal, bilaterally, 18:20 ENT: External ear(s): are unremarkable, Nose: is normal, Mouth: Lips: moist, Oral mucosa: pink and intact, moist, Posterior pharynx: is normal, airway is patent, no erythema, no exudate, 18:20 Neck: ROM/movement: is normal, is supple, without pain, no range of motions limitations, 18:20 Chest/axilla: Inspection: normal, 18:20 Cardiovascular: Rate: normal, Rhythm: regular, JVD: is not appreciated, 18:20 Respiratory: the patient does not display signs of respiratory distress, Respirations: normal, no use of accessory muscles, no retractions, labored breathing, is not present, Breath sounds: are clear throughout, no decreased breath sounds, no stridor, no wheezing, 18:20 Abdomen/GI: Inspection: abdomen appears normal, Palpation: abdomen is soft and non-tender, in all quadrants, 18:20 Back: pain, that is moderate, of the right mid back, ROM is painful, with all movement, 18:20 Neuro: Orientation: to person, place \T\ time. Mentation: is normal, Motor: moves all fours, strength is normal, Sensation: no obvious gross deficits, 21:25 ECG was reviewed by the Attending Physician. cp Vital Signs: 17:50 BP 120 / 71; Pulse 63; Resp 18 S; Temp 97.2(TE); Pulse Ox 98% on R/A; Weight 122.47 kg aa5 (R); Height 5 ft. 10 in. (R); 18:30 BP 122 / 86; Pulse 64; Resp 18; Pulse Ox 100% ; nj1 19:54 BP 122 / 79; Pulse 68; Resp 18; Pulse Ox 100% ; cm10 20:00 BP 129 / 77; Pulse 64; Resp 16; Pulse Ox 100% on R/A; cm10 21:00 BP 102 / 62; Pulse 56; Resp 16; Pulse Ox 100% on R/A; cm10 22:00 BP 93 / 58; Pulse 58; Resp 18; Pulse Ox 100% on R/A; cm10 17:50 Body Mass Index 38.74 (122.47 kg, 177.8 cm) aa5 [place]i Coma Score: 22:32 Eye Response: spontaneous(4). Motor Response: obeys commands(6). Verbal Response: rv oriented(5). Total: 15. MDM: 17:55 Patient medically screened. cp 22:23 Data reviewed: vital signs, nurses notes, lab test result(s), radiologic studies, CT cp scan, and as a result, I will discharge patient. 22:23 Differential diagnosis: ruptured disc, Ureterolithiasis choledocholithiasis, sciatica. cp I considered the following discharge prescriptions or medication management in the emergency department Medications were administered in the Emergency Department. See MAR. Independent interpretation of the following test(s) in the Emergency Department EKG: See my EKG interpretation above. Counseling: I had a detailed discussion with the patient and/or guardian regarding the historical points, exam findings, and any diagnostic results supporting the discharge/admit diagnosis, lab results, radiology results, the need for outpatient follow up, a family practitioner, to return to the emergency department if symptoms worsen or persist or if there are any questions or concerns that arise at home. Response to treatment: the patient's symptoms have markedly improved after treatment, and as a result, I will discharge patient. 08/27 18:06 Order name: CBC with Diff; Complete Time: 18:33 cp 08/27 18:33 Interpretation: Normal except: HGB 11.3; HCT 34.6; GLENNY% 35.9; LYM% 48.8; EOSINOPHIL % cp 4.5. 08/27 18:06 Order name: CMP; Complete Time: 19:51 cp 08/27 19:51 Interpretation: Normal except: CL 109; A/G 1.0. cp 08/27 18:06 Order name: Lipase; Complete Time: 19:51 cp 08/27 18:06 Order name: Urinalysis w/ reflexes; Complete Time: 21:07 cp 08/27 21:07 Interpretation: Normal except: UCLA Turbid; UBILI 1+; UESTR 500; UWBC 10-20; URBC cp 11-20; SQEPI 20-50. 08/27 18:06 Order name: Test, Urine; Complete Time: 21:07 cp 08/27 21:07 Order name: Troponin High Sensitivity; Complete Time: 22:21 cp 08/27 18:33 Order name: CT Stone Protocol; Complete Time: 19:51 cp 08/27 18:06 Order name: IV Saline Lock; Complete Time: 18:47 cp 08/27 18:06 Order name: Labs collected and sent; Complete Time: 18:47 cp 08/27 21:07 Order name: EKG - Nurse/Tech; Complete Time: 21:24 cp EC:25 Rate is 69 beats/min. Rhythm is regular. NC interval is normal. QRS interval is normal. cp QT interval is normal. T waves are Inverted in lead aVR. Interpreted by me. Reviewed by me. Administered Medications: 18:35 Drug: NS 0.9% IV 1000 ml IV at 1 bolus Per protocol; 1000 mL bolus Route: IV; Rate: 1 nj1 bolus; Site: left antecubital; 22:33 Follow up: IV Status: Completed infusion; IV Intake: 1000ml rv 18:36 Drug: TORadol - Ketorolac IVP 15 mg IVP once Route: IVP; Site: left antecubital; nj1 20:12 Follow up: Response: No adverse reaction cm10 18:40 Drug: Dexamethasone IVP 10 mg IVP once; (not to exceed 40 mg) Route: IVP; Site: left nj1 antecubital; 20:12 Follow up: Response: No adverse reaction cm10 20:12 Drug: Methocarbamol IVPB 1 grams IVPB once over 1 hrs; (mix in NS 100 mL) Route: IVPB; cm10 Infused Over: 1 hrs; Site: left antecubital; 21:25 Follow up: Response: No adverse reaction; Pain is decreased; IV Status: Completed cm10 infusion; IV Intake: 100ml 20:12 Drug: fentaNYL (PF) IVP 25 mcg IVP once Route: IVP; Site: left antecubital; cm10 21:24 Follow up: Response: No adverse reaction; Pain is decreased cm10 20:12 Drug: Lidoderm Topical Patch 5 % (700 mg/patch) 1 patches Topical once; leave on for 12 cm10 hours; cover most painful area; may cut into smaller pieces Route: Topical; Site: affected area; 21:25 Follow up: Response: No adverse reaction; Pain is decreased cm10 Disposition Summary: 08/28/23 22:24 Discharge Ordered Notes: Location: Home cp Problem: an acute exacerbation cp Symptoms: have improved cp Condition: Stable cp Diagnosis - Dorsalgia, unspecified cp - Chest pain, unspecified cp Followup: cp - With: Private Physician - When: 2 - 3 days - Reason: Recheck today's complaints Discharge Instructions: - Discharge Summary Sheet cp - Chronic Back Pain cp - Nonspecific Chest Pain, Adult cp - Aspirin and Your Heart cp - Back Exercises cp - Form - Excuse from Work, School, or Physical Activity cp Forms: - Medication Reconciliation Form cp - Thank You Letter cp - Antibiotic Education cp - Prescription Opioid Use cp - Patient Portal Instructions cp - Leadership Thank You Letter cp - Work release form cm10 Prescriptions: - Cyclobenzaprine 10 mg Oral Tablet - take 1 tablet ORAL route every 8 hours As needed; 30 tablet; Refills: 0, cp Product Selection Permitted - Diclofenac Sodium 75 mg Oral Tablet Sustained Release - take 1 tablet ORAL route 2 times per day; 30 tablet; Refills: 0, Product cp Selection Permitted - Medrol ([place]) 4 mg Oral Tablets, Dose Pack - take 1 tablet ORAL route as directed - follow package instructions; 1 packet; cp Refills: 0, Product Selection Permitted Signatures: Dispatcher [employer] EDMS Justina Maier, RN RN aa5 Wilmer Bah PA PA cp David Gusman, RN RN Kerry Chan RN RN nj1 Jeri Moon, RN RN cm10 Corrections: (The following items were deleted from the chart) 18:06 18:06 CBC+H.LAB.BRZ ordered. EDMS EDMS 18:06 18:06 COMPREHENSIVE METABOLIC PANEL+C.LAB.BRZ ordered. EDMS EDMS 18:06 18:06 LIPASE+C.LAB.BRZ ordered. EDMS EDMS 18:06 18:06 Urinalysis+U.LAB.BRZ ordered. EDMS EDMS 18:06 18:06 Test, Urine+UC.LAB.BRZ ordered. EDMS EDMS 21:07 21:07 Troponin High Sensitivity+C.LAB.BRZ ordered. EDMS EDMS
--- NOTE | 2023-08-28 22:25 | ER ---
Nurse's Notes [facility] Name: Mamta Eldridge Age: 43 yrs Sex: Female : 1980 Arrival Date: 08/28/2023 Time: 17:41 Bed 3 Private MD: Diagnosis: Dorsalgia, unspecified;Chest pain, unspecified Presentation: 08/27 17:50 Chief complaint: Patient states: right low back pain x 2-3 days ago. aa5 17:50 Coronavirus screen: At this time, the client does not indicate any symptoms associated aa5 with coronavirus-19. Initial Sepsis Screen: Does the patient meet any 2 criteria? No. Patient's initial sepsis screen is negative. Does the patient have a suspected source of infection? No. Patient's initial sepsis screen is negative. Risk Assessment: Do you want to hurt yourself or someone else? Patient reports no desire to harm self or others. Onset of symptoms was August 2023. 17:50 Acuity: ADALGISA 3 aa5 17:50 Method Of Arrival: Wheelchair aa5 17:50 Ebola Screen: Patient denies travel to an Ebola-affected area in the 21 days before aa5 illness onset. Historical: - Allergies: 17:50 HYDROCODONE; aa5 17:50 Morphine; aa5 - PMHx: 17:50 Anemia; Heart Murmur; Migraines; aa5 - Immunization history:: Adult Immunizations unknown. - Infectious Disease History:: Denies. - Social history:: Smoking status: unknown. Screenin:50 [facility] ED Fall Risk Assessment (Adult) History of falling in the last 3 months, nj1 including since admission No falls in past 3 months (0 pts) Confusion or Disorientation No (0 pts) Intoxicated or Sedated No (0 pts) Impaired Gait No (0 pts) Mobility Assist Device Used No (0 pt) Altered Elimination No (0 pt) Score/Fall Risk Level 0 - 2 = Low Risk Oriented to surroundings, Maintained a safe environment, Hourly rounding (assess needs \T\ fall precautionary measures) done. Abuse screen: Denies threats or abuse. Denies injuries from another. Nutritional screening: No deficits noted. Tuberculosis screening: No symptoms or risk factors identified. Assessment: 18:40 General: Appears in no apparent distress. comfortable, Behavior is calm, cooperative, nj1 appropriate for age. 18:40 Pain: Complains of pain in back Pain currently is 10 out of 10 on a pain scale. Neuro: nj1 Level of Consciousness is awake, alert, obeys commands, Oriented to person, place, time, situation. Cardiovascular: Patient's skin is warm and dry. Respiratory: Airway is patent Respiratory effort is even, unlabored. Musculoskeletal: Reports pain in back. 19:30 Reassessment: Assumed care of patient at this time. Pt currently resting on stretching cm10 complaining of back pain. Pt assisted to restroom for urine sample. Pt updated on plan of care. Visitor at bedside. General: Appears in no apparent distress. comfortable, Behavior is calm, cooperative, appropriate for age. Pain: Complains of pain in back. Neuro: No deficits noted. Level of Consciousness is awake, alert, obeys commands, Oriented to person, place, time, situation. Cardiovascular: No deficits noted. Patient's skin is warm and dry. Respiratory: No deficits noted. Airway is patent Respiratory effort is even, unlabored, Respiratory pattern is regular, symmetrical, Breath sounds are clear bilaterally. Musculoskeletal: Reports pain in back. 21:07 Reassessment: PT complaining of chest pain at this time. Pt rates the pain a 6/10 on cm10 pain scale. Pt reports that the pain is to the center of her chest and describes it as a stabbing pain. Provider made aware. New orders for EKG and troponin obtained. Pt reports that her back pain has improved. 22:32 Reassessment: Patient and/or family updated on plan of care and expected duration. Pain rv level reassessed. Patient is alert, oriented x 3, equal unlabored respirations, skin warm/dry/pink. Patient states feeling better. Patient states symptoms have improved. Vital Signs: 17:50 BP 120 / 71; Pulse 63; Resp 18 S; Temp 97.2(TE); Pulse Ox 98% on R/A; Weight 122.47 kg aa5 (R); Height 5 ft. 10 in. (R); 18:30 BP 122 / 86; Pulse 64; Resp 18; Pulse Ox 100% ; nj1 19:54 BP 122 / 79; Pulse 68; Resp 18; Pulse Ox 100% ; cm10 20:00 BP 129 / 77; Pulse 64; Resp 16; Pulse Ox 100% on R/A; cm10 21:00 BP 102 / 62; Pulse 56; Resp 16; Pulse Ox 100% on R/A; cm10 22:00 BP 93 / 58; Pulse 58; Resp 18; Pulse Ox 100% on R/A; cm10 17:50 Body Mass Index 38.74 (122.47 kg, 177.8 cm) aa5 [place] Coma Score: 22:32 Eye Response: spontaneous(4). Motor Response: obeys commands(6). Verbal Response: rv oriented(5). Total: 15. ED Course: 17:44 Patient arrived in ED. mg5 17:45 Wilmer Bah PA is PHCP. cp 17:45 Ismael Callahan MD is Attending Physician. cp 17:50 Arm band placed on Patient placed in an exam room, on a stretcher. aa5 18:13 Kerry Villegas, RN is Primary Nurse. nj1 18:19 Triage completed. aa5 18:50 Radiology exam delayed due to test not completed at this time. ag6 18:51 Patient has correct armband on for positive identification. Bed in low position. Call nj1 light in reach. Adult w/ patient. Provided Education on: call light, fall precautions. 19:10 Report given to Jeri RN and Rudy RN. nj1 19:18 CT Stone Protocol In Process Unspecified. EDMS 19:51 Patient requests pain medication. cm10 19:51 Primary Nurse role handed off by Kerry Villegas, RN cm10 19:51 Jeri Moon, RN is Primary Nurse. cm10 19:51 Urine collected: clean catch specimen. cm10 19:53 Thermoregulation: warm blanket given to patient. cm10 21:24 Troponin High Sensitivity Sent. cm10 21:26 Repeat lab(s) drawn. by ma, sent to lab. EKG done, by ED staff, reviewed by Wilmer SORENSON. 22:32 No provider procedures requiring assistance completed. IV discontinued, intact, rv bleeding controlled, No redness/swelling at site. Pressure dressing applied, g20 left AC. Administered Medications: 18:35 Drug: NS 0.9% IV 1000 ml IV at 1 bolus Per protocol; 1000 mL bolus Route: IV; Rate: 1 nj1 bolus; Site: left antecubital; 22:33 Follow up: IV Status: Completed infusion; IV Intake: 1000ml rv 18:36 Drug: TORadol - Ketorolac IVP 15 mg IVP once Route: IVP; Site: left antecubital; nj1 20:12 Follow up: Response: No adverse reaction cm10 18:40 Drug: Dexamethasone IVP 10 mg IVP once; (not to exceed 40 mg) Route: IVP; Site: left nj1 antecubital; 20:12 Follow up: Response: No adverse reaction cm10 20:12 Drug: Methocarbamol IVPB 1 grams IVPB once over 1 hrs; (mix in NS 100 mL) Route: IVPB; cm10 Infused Over: 1 hrs; Site: left antecubital; 21:25 Follow up: Response: No adverse reaction; Pain is decreased; IV Status: Completed cm10 infusion; IV Intake: 100ml 20:12 Drug: fentaNYL (PF) IVP 25 mcg IVP once Route: IVP; Site: left antecubital; cm10 21:24 Follow up: Response: No adverse reaction; Pain is decreased cm10 20:12 Drug: Lidoderm Topical Patch 5 % (700 mg/patch) 1 patches Topical once; leave on for 12 cm10 hours; cover most painful area; may cut into smaller pieces Route: Topical; Site: affected area; 21:25 Follow up: Response: No adverse reaction; Pain is decreased cm10 Medication: 22:33 VIS not applicable for this client. rv Intake: 21:25 IV: 100ml; Total: 100ml. cm10 22:33 IV: 1000ml; Total: 1100ml. rv Outcome: 22:24 Discharge ordered by MD. cp 22:33 Discharged to home ambulatory, rv 22:33 Condition: good 22:33 Discharge instructions given to patient, Instructed on discharge instructions, follow up and referral plans. medication usage, Demonstrated understanding of instructions, follow-up care, medications, Prescriptions given X 3, 22:33 Patient left the ED. rv Signatures: Dispatcher [employer] EDMS Justina Maier RN RN aa5 Wilmer Bah PA PA cp David Gusman RN RN rv Genoveva Grayson ag6 Kerry Villgeas RN RN nj1 Jeri Moon RN RN cm10 Veronica Martínez mg5 Corrections: (The following items were deleted from the chart) 21:08 21:07 Reassessment: PT complaining of chest pain at this time. Provider made aware. No cm10 new orders cm10 21: 21:07 Reassessment: PT complaining of chest pain at this time. Provider made aware. New cm10 orders for EKG and troponin obtained. cm10
[2023-08-29 01:12] VITALS: BP 93/58; TEMP 97.2; O2SAT 100
== END 2023-08-28 22:33 | disposition home or self-care (01) ==
LOC: ER 17:41
DX: M54.9 Dorsalgia, unspecified (principal); R07.9 Chest pain, unspecified; Z88.5 Allergy status to narcotic agent
CPT/HCPCS: 96365; 96361; 93005; 85025; 81001; 36415; 81025; 84484; 83690; 80053; 76377; 74176; 96375; 99285; J2001; J3010; J1100; J2800; J7030